=== PATIENT | female | born 1970 | race Caucasian/White ===

== ENCOUNTER 2018-08-13 18:02 | Inpatient (IN) | payer OTHER ==
[2018-08-13] MEDS ORDERED: THIAMINE 200 MG/2 ML INJ ONE (18:56)
[2018-08-13] MEDS ORDERED: NA CHLORIDE 0.9% 2,000 ML ONE (18:56)
[2018-08-13] MEDS ORDERED: MULTIVITAMINS 10 ML VIAL (INJ) IV ONE (18:57)
[2018-08-13] MEDS ORDERED: FOLIC ACID 5 MG/ML VIAL ONE (18:58)
--- NOTE | 2018-08-13 19:22 | RAD REPORT ---
EXAM DESCRIPTION: RAD - Chest Single View - 08/13/2018 7:09 pm CLINICAL HISTORY: Abdominal pain COMPARISON: December 2016 TECHNIQUE: AP portable chest image was obtained 1905 hours . FINDINGS: Lungs are clear. Heart and vasculature are normal. No measurable pleural effusion and no p neumothorax. No acute bony abnormality seen. No acute aortic findings suspected. IMPRESSION: No acute cardiopulmonary process. No significant change from comparison.
[2018-08-13 19:42] LABS: Absolute Lymphocytes (CBC) 1.2 K/uL (0.7-4.9); Absolute Monocytes 0.3 K/uL (0.1-1.3); Absolute Neutrophil 4.9 K/uL (1.8-8.0); Basophils % 0.6 % (0-1.3); Eosinophils % 0.1 % (0-4.4); Hematocrit 29.8 % (36.0-45.0); Lymphocytes % 19.1 % (15.3-44.8); MCH 37.3 pg (27.0-35.0); MCV 109.9 fL (80-100); MPV 8.2 fL (7.6-11.3); RBC Red Blood Cell Count 2.71 M/uL (3.86-4.86)
[2018-08-13 19:48] LABS: Protime INR 1.15
[2018-08-13] MEDS ORDERED: DICYCLOMINE HCL 10 MG CAP ONE (19:55)
[2018-08-13 20:39] LABS: ALT/SGPT 42 U/L (12-78); AST/SGOT 133 U/L (15-37); Albumin 3.5 g/dL (3.4-5.0); Alkaline Phosphatase 243 U/L (45-117); BUN Blood Urea Nitrogen 6 mg/dL (7-18); Bicarbonate 19 mmol/L (21-32); Bilirubin Direct 0.5 mg/dL (0-0.2); Bilirubin Total 0.8 mg/dL (0.2-1.0); Glucose Level 68 mg/dL (74-106); Lipase 307 U/L (73-393); Magnesium 1.5 mg/dL (1.8-2.4); Potassium 3.6 mmol/L (3.5-5.1); Protein, Total 7.6 g/dL (6.4-8.2); Sodium Level 141 mmol/L (136-145); Troponin I < 0.02 ng/mL (0.0-0.045)
[2018-08-13 20:45] LABS: Platelet Estimate DECR; Urine White Blood Cell Casts OK
[2018-08-13 20:46] LABS: Blood Morphology Comment NOTED (NOT SEEN); Macrocytosis 1+
[2018-08-13] MEDS ORDERED: Magnesium Sulfate 2gm IVPB 2 G/50 ML BAG IV ONE (21:05)
[2018-08-13] MEDS ORDERED: D50W 25 GM/50 ML SYRINGE IV ONE ×2 (21:05→23:35)
[2018-08-13 21:31] LABS: Barbiturates NEGATIVE (NEGATIVE); Benzodiazepines POSITIVE (NEGATIVE); Cocaine NEGATIVE (NEGATIVE); METHAMPHETAM NEGATIVE (NEGATIVE); Methadone NEGATIVE (NEGATIVE); Opiates NEGATIVE (NEGATIVE); Phencyclidine NEGATIVE (NEGATIVE); THC Cannibis NEGATIVE (NEGATIVE)
[2018-08-13 22:25] LABS: Urine Blood NEGATIVE (NEG); Urine Glucose NEGATIVE (NEG); Urine Protein NEGATIVE (NEG); Urine Specific Gravity 1.015 (1.005-1.030); Urine pH 6.5 (5.0-7.0)
--- NOTE | 2018-08-13 23:08 | ER ---
Nurse's Notes [facility] Name: Yudy Luke Age: 48 yrs Sex: Female : 1970 Arrival Date: 08/13/2018 Time: 18:03 Bed 23 Private MD: Isidoro Nino H Diagnosis: Alcohol abuse with intoxication;Dehydration;Hypoglycemia, unspecified;Diarrhea, unspecified;Hypomagnesemia Presentation: 08/13 18:14 Presenting complaint: Patient states: "I'm really sick. I think have C-Diff. I've aj1 crapped myself 13 times today. I went to [facility] last night. I called Dr. Nino and he said to come here and he would take of me. This has been going on for 2 months" Reports that she was unable to start any of her prescriptions because she slept all day. Reports epigastric pain, N/V/D. Reports fever of 100.1 today. Transition of care: patient was not received from another setting of care. Onset of symptoms was May 2018. Risk Assessment: Do you want to hurt yourself or someone else? Patient reports no desire to harm self or others. Initial Sepsis Screen: Does the patient meet any 2 criteria? HR > 90 bpm. No. Patient's initial sepsis screen is negative. Does the patient have a suspected source of infection? Yes: Acute abdominal pain. Care prior to arrival: None. 18:14 Method Of Arrival: Wheelchair aj1 18:14 Acuity: FABY 3 aj1 Triage Assessment: 18:18 General: Appears uncomfortable, Behavior is anxious, crying, restless. Pain: Complains aj1 of pain in epigastric area Pain currently is 10 out of 10 on a pain scale. Neuro: Level of Consciousness is awake, alert, obeys commands. Cardiovascular: Patient's skin is warm and dry. Respiratory: Airway is patent Respiratory effort is even, unlabored, Respiratory pattern is regular, symmetrical. GI: Reports diarrhea, nausea, vomiting. 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 - Social history:: Smoking status: Patient uses tobacco products, 1-2 cigarettes per day, Patient uses alcohol, on a daily basis. - Ebola Screening: : Patient denies travel to an Ebola-affected area in the 21 days before illness onset. Screenin:30 Abuse screen: Denies threats or abuse. Denies injuries from another. Nutritional kr2 screening: No deficits noted. Tuberculosis screening: No symptoms or risk factors identified. Fall Risk Gait- Impaired (20 pts.). Mental Status- Overestimates/Forgets Limitations (15 pts.). Assessment: 18:30 General: Appears in no apparent distress. uncomfortable, Behavior is crying, restless, kr2 Smells of alcohol, Reports feeling ill for > 3 days. Pain: Complains of pain in epigastric area Pain radiates to abdomen Pain currently is 10 out of 10 on a pain scale. Quality of pain is described as crampy, sharp, shooting, Is continuous, Alleviated by nothing. Aggravated by increased activity, Noted to be crying, moaning, restless. Neuro: Level of Consciousness is awake, alert, Oriented to person, place, time, situation. Cardiovascular: Capillary refill is > 3 seconds in bilateral fingers Patient's skin is warm and dry. Respiratory: Airway is patent Respiratory effort is even, unlabored, Respiratory pattern is regular, symmetrical. GI: Abdomen is flat, non-distended, Bowel sounds present X 4 quads. Abdomen is tender to palpation X 4 quads. EENT: Oral mucosa is dry. Derm: Skin is intact, with poor turgor Skin is pink, warm \\T\\ dry. Musculoskeletal: Circulation, motion, and sensation intact. 19:30 Reassessment: Patient appears in no apparent distress at this time. Patient and/or kr2 family updated on plan of care and expected duration. Pain level reassessed. Patient resting quietly at this time. 20:15 Reassessment: Patient sleeping, when awakened for procedures or medication patient kr2 begins crying, screaming and hyperventilating. Patient reminded to slow breathing and with encouragement calms down. Cries on and off, at bedside and assist in calming patient. 20:20 Reassessment: Patient states she needs help changing, "I pooped on myself, I can't kr2 control it." Checked patients undergarments, no urine or feces present. 20:46 Reassessment: Asked patient to attempt to provide urine sample, she refuses at this kr2 time. She insist she must be admitted to the hospital, Explained to patient all of her test must be completed and results obtained before physician can make that determination. 21:45 Reassessment: Patient appears in no apparent distress at this time. Patient and/or kr2 family updated on plan of care and expected duration. Pain level reassessed. No episodes of diarrhea or vomiting since arrival. 22:35 Reassessment: Patient appears in no apparent distress at this time. Patient and/or kr2 family updated on plan of care and expected duration. Pain level reassessed. Patient sleeping at this time. 23:57 Reassessment: Patient appears in no apparent distress at this time. Patient and/or kr2 family updated on plan of care and expected duration. Pain level reassessed. Patient is alert, oriented x 3, equal unlabored respirations, skin warm/dry/pink. Patient given new undergarments as requested. Small smear of stool noted, not enough for sample Patient states symptoms have improved. 08/14 00:45 Reassessment: Patient appears in no apparent distress at this time. Patient and/or kr2 family updated on plan of care and expected duration. Pain level reassessed. Patient is alert, oriented x 3, equal unlabored respirations, skin warm/dry/pink. Vital Signs: 08/13 18:18 BP 107 / 74; Pulse 86; Resp 18; Temp 97.0(O); Pulse Ox 97% on R/A; Weight 69.85 kg (R); aj1 Height 5 ft. 3 in. (160.02 cm) (R); Pain 10/10; 20:23 BP 103 / 69; Pulse 83; Resp 15; Pulse Ox 99% on R/A; kr2 20:50 BP 105 / 65; Pulse 71; Resp 16; Pulse Ox 100% ; kr2 22:15 BP 100 / 74; Pulse 82; Resp 18; Pulse Ox 100% on R/A; kr2 23:59 BP 107 / 55; Pulse 86; Resp 17; Pulse Ox 99% on R/A; kr2 18:18 Body Mass Index 27.28 (69.85 kg, 160.02 cm) aj1 ED Course: 18:03 Patient arrived in ED. as 18:04 Isidoro Nino MD is Private Physician. as 18:17 Triage completed. aj1 18:22 J Carlos Naranjo PA is PHCP. cp 18:22 J Carlos Dorado MD is Attending Physician. cp 18:30 Arm band placed on. kr2 18:30 Patient has correct armband on for positive identification. Placed in gown. Bed in low kr2 position. Call light in reach. Side rails up X2. Adult w/ patient. quality assurance monitor body on. Pulse ox on. NIBP on. Door closed. Lights dimmed. Warm blanket given. Head of bed elevated. 19:00 Served as a environmental consultant during rectal exam. kr2 19:09 XRAY Chest (1 view) In Process Unspecified. EDMS 19:15 Inserted saline lock: 20 gauge in left antecubital area, using aseptic technique. kr2 ,using aseptic technique. Inserted by KARIS Rinaldi Blood collected. 19:37 Jaclyn Delgado, KARIS is Primary Nurse. kr2 21:00 Notified Nurse Practitioner and/or Physician Quality Systems Engineer of a critical lab result(s), fc corrected level of ETOH is 345. 21:28 US Abdomen Limited: RUQ/epigastric area In Process Unspecified. EDMS 23:05 Yuriy Anderson MD is Hospitalizing Provider. cp 08/14 00:47 Patient admitted, IV remains in place. kr2 Administered Medications: 08/13 19:35 Drug: Banana Bag - (NS 0.9% 1000 ml, foLIC Acid 1 mg, Thiamine 100 mg, Multivitamin 1 kr2 amp) Route: IV; Rate: 200 ml/hr; Site: left antecubital; 08/14 00:40 Follow up: Response: No adverse reaction; IV Status: Infusion continued upon admission kr2 08/13 19:37 Drug: NS 0.9% 1000 ml Route: IV; Rate: 1 bolus; Site: left antecubital; kr2 21:00 Follow up: Response: No adverse reaction; IV Status: Completed infusion kr2 19:52 Drug: Bentyl 20 mg Route: PO; kr2 21:51 Follow up: Response: No adverse reaction kr2 21:06 Drug: D50W 50 ml Route: IVP; Site: left antecubital; kr2 22:14 Follow up: Response: No adverse reaction; Blood sugar is elevated kr2 21:45 Drug: Magnesium Sulfate 2 grams Route: IVPB; Infused Over: 2 hrs; Site: left kr2 antecubital; 23:45 Follow up: Response: No adverse reaction; IV Status: Completed infusion kr2 23:30 Drug: D5-1/2 NS 1000 ml Route: IV; Rate: 125 ml/hr; Site: left antecubital; kr2 08/14 00:48 Follow up: IV Status: Infusion continued upon admission kr2 08/13 23:30 Drug: D50W 50 ml Route: IVP; Site: left antecubital; kr2 08/14 00:48 Follow up: Response: No adverse reaction kr2 Point of Care Testing: Blood Glucose: 08/13 22:00 Blood Glucose: 98 mg/dL; kr2 Ranges: Outcome: 23:07 Decision to Hospitalize by Provider. 08/14 00:47 Admitted to Tele accompanied by nurse, via wheelchair, room 411, with chart, Report kr2 called to Johanny Condition: stable Instructed on the need for admit, Demonstrated understanding of instructions. 00:50 Patient left the ED. kr2 Signatures: Dispatcher [employer] Elizabeth Luz RN RN aj Desi Spencer RN RN fc Martinez, Amelia as Page, Corey, PA PA cp Reaves, Karey, RN RN kr2 Corrections: (The following items were deleted from the chart) 08/13 20:25 18:30 Fall Risk Mental Status- Overestimates/Forgets Limitations (15 pts.). kr2 kr2 23:51 23:30 D50W 50 ml IVP in left antecubital aj1 aj1 23:51 23:31 D5-1/2 NS 1000 ml IV at 125 ml/hr in left antecubital aj1 aj1 23:52 23:45 BP 107 / 75; Pulse 88bpm; Resp 17bpm; Pulse Ox 100%; aj1 aj1 23:52 23:43 Reassessment: Patient appears in no apparent distress at this time. Patient aj1 and/or family updated on plan of care and expected duration. Pain level reassessed. Patient given clean undergarments as requested, small smear of stool noted on brief, not enough to collect sample aj1
--- NOTE | 2018-08-13 23:09 | EDPHYS ---
Physician Documentation [facility] Name: Yudy Luke Age: 48 yrs Sex: Female : 1970 Arrival Date: 08/13/2018 Time: 18:03 Bed 23 Private MD: Isidoro Nino H ED Physician J Carlos Dorado HPI: 08/13 19:00 This 48 yrs old Female presents to ER via Wheelchair with complaints of cp Abdominal Pain - C-Diff, Vomiting. 19:00 The patient presents with abdominal pain that is diffuse. cp 19:00 Onset: The symptoms/episode began/occurred 2 month(s) ago. cp 19:00 Associated signs and symptoms: Pertinent positives: blood in stools, diarrhea, nausea, cp vomiting, Pertinent negatives: constipation, dysuria, fever. The symptoms are described as waxing/waning. 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 - Social history:: Smoking status: Patient uses tobacco products, 1-2 cigarettes per day, Patient uses alcohol, on a daily basis. - Ebola Screening: : Patient denies travel to an Ebola-affected area in the 21 days before illness onset. ROS: 19:04 Constitutional: Negative for body aches, chills, fever, poor PO intake. cp 19:04 Eyes: Negative for injury, pain, redness, and discharge. cp 19:04 ENT: Negative for drainage from ear(s), ear pain, sore throat, difficulty swallowing, difficulty handling secretions. 19:04 Cardiovascular: Negative for chest pain, edema, palpitations. 19:04 Respiratory: Negative for cough, shortness of breath, wheezing. 19:04 Abdomen/GI: Positive for abdominal pain, nausea and vomiting, diarrhea, black/tarry stool, rectal bleeding, Negative for constipation, anorexia. 19:04 : Negative for urinary symptoms. 19:04 Skin: Negative for cellulitis, rash. 19:04 Neuro: Negative for altered mental status, seizure activity, syncope, near syncope. 19:04 Psych: Positive for alcohol dependence. 19:04 All other systems are negative. Exam: 19:07 Head/Face: Normocephalic, atraumatic. cp 19:07 Constitutional: The patient appears in no acute distress, alert, awake, non-toxic, well developed, well nourished, smells of alcohol, tearful 19:07 Eyes: Periorbital structures: appear normal, Pupils: equal, round, and reactive to light and accomodation, Extraocular movements: intact throughout, Conjunctiva: normal, no exudate, no injection, Sclera: no appreciated abnormality, Lids and lashes: appear normal, bilaterally. 19:07 ENT: External ear(s): are unremarkable, Ear canal(s): are normal, clear, TM's: bulging, is not appreciated, bilaterally, dullness, bilaterally, erythema, is not appreciated, bilaterally, Nose: is normal, Mouth: Lips: dry, Oral mucosa: dry, Posterior pharynx: is normal, airway is patent, no erythema, no exudate. 19:07 Neck: ROM/movement: is normal, is supple, without pain, no range of motions limitations, no meningismus, no nuchal rigidity. 19:07 Chest/axilla: Inspection: normal, Palpation: is normal, no crepitus, no tenderness. 19:07 Cardiovascular: Rate: normal, Rhythm: regular, Edema: is not appreciated, JVD: is not appreciated. 19:07 Respiratory: the patient does not display signs of respiratory distress, Respirations: normal, no use of accessory muscles, no retractions, no splinting, no tachypnea, labored breathing, is not present, Breath sounds: are clear throughout, no decreased breath sounds, no stridor, no wheezing. 19:07 Abdomen/GI: Inspection: abdomen appears normal, Bowel sounds: active, all quadrants, Palpation: soft, in all quadrants, mild abdominal tenderness, in all quadrants, rebound tenderness, is not appreciated, involuntary guarding, is not appreciated. 19:07 Back: pain, is absent, ROM is normal, CVA tenderness, is absent. 19:07 : Rectal exam: Stool: brown, Guaiac testing: results were negative for occult blood. 19:07 Skin: cellulitis, is not appreciated, no rash present. 19:40 ECG was reviewed by the Attending Physician. cp Vital Signs: 18:18 BP 107 / 74; Pulse 86; Resp 18; Temp 97.0(O); Pulse Ox 97% on R/A; Weight 69.85 kg (R); aj1 Height 5 ft. 3 in. (160.02 cm) (R); Pain 10/10; 20:23 BP 103 / 69; Pulse 83; Resp 15; Pulse Ox 99% on R/A; kr2 20:50 BP 105 / 65; Pulse 71; Resp 16; Pulse Ox 100% ; kr2 22:15 BP 100 / 74; Pulse 82; Resp 18; Pulse Ox 100% on R/A; kr2 23:59 BP 107 / 55; Pulse 86; Resp 17; Pulse Ox 99% on R/A; kr2 18:18 Body Mass Index 27.28 (69.85 kg, 160.02 cm) aj1 MDM: 18:22 Patient medically screened. cp 23:00 Data reviewed: vital signs, nurses notes, old medical records, lab test result(s), EKG, cp radiologic studies, ultrasound. 23:00 Test interpretation: by ED physician or midlevel provider: ECG, plain radiologic cp studies. 08/13 18:43 Order name: Basic Metabolic Panel; Complete Time: 22:07 cp 08/13 20:46 Interpretation: Normal except: CO2 19; GLUC 68; BUN 6; GFR 76; CA 7.9. cp 08/13 18:43 Order name: CBC with Diff; Complete Time: 20:47 cp 08/13 19:58 Interpretation: Normal except: RBC 2.71; HGB 10.1; HCT 29.8; MCV 109.9; MCH 37.3; PLT cp 121; EVAN% 76.2. 08/13 18:43 Order name: Creatinine for Radiology; Complete Time: 20:15 cp 08/13 18:43 Order name: Hepatic Function; Complete Time: 22:07 cp 08/13 20:46 Interpretation: Normal except: AST 133; ALK 243; BILID 0.5; GLOB 4.1; A/G 0.9. cp 08/13 18:43 Order name: Lipase; Complete Time: 22:07 cp 08/13 18:43 Order name: Occult Blood cp 08/13 18:43 Order name: Stool Culture cp 08/13 18:43 Order name: CDIFF cp 08/13 18:43 Order name: AMMONIA; Complete Time: 20:15 cp 08/13 20:16 Interpretation: Abnormal: TESFAYE 58. cp 08/13 18:43 Order name: PT-INR; Complete Time: 19:58 cp 08/13 19:59 Interpretation: Abnormal: PT 13.6. cp 08/13 18:43 Order name: Ptt, Activated; Complete Time: 19:58 cp 08/13 18:43 Order name: Magnesium; Complete Time: 22:07 cp 08/13 20:46 Interpretation: Abnormal: MG 1.5. cp 08/13 18:43 Order name: Tylenol Level; Complete Time: 22:07 cp 08/13 18:43 Order name: ETOH Level; Complete Time: 22:07 cp 08/13 18:43 Order name: UDS; Complete Time: 22:07 cp 08/13 18:43 Order name: Type And Screen; Complete Time: 21:01 cp 08/13 21:01 Interpretation: Reviewed. cp 08/13 18:43 Order name: EKG; Complete Time: 18:44 cp 08/13 18:43 Order name: Troponin I; Complete Time: 22:07 cp 08/13 18:43 Order name: XRAY Chest (1 view); Complete Time: 19:58 cp 08/13 20:46 Order name: CBC Smear Scan; Complete Time: 20:47 EDMS 08/13 20:48 Order name: US Abdomen Limited: RUQ/epigastric area cp 08/13 21:21 Order name: Urine Dipstick--Ancillary (enter results); Complete Time: 22:55 mw2 08/13 21:21 Order name: Urine --Ancillary (enter results); Complete Time: 22:55 mw2 08/13 18:43 Order name: IV Saline Lock; Complete Time: 19:38 cp 08/13 18:43 Order name: Labs collected and sent; Complete Time: 19:38 cp 08/13 18:43 Order name: Urine Dipstick-Ancillary (obtain specimen); Complete Time: 22:18 cp 08/13 18:43 Order name: Urine Test (obtain specimen); Complete Time: 22:18 cp 08/13 18:43 Order name: EKG - Nurse/Tech; Complete Time: 19:38 cp EC:40 Rate is 84 beats/min. Rhythm is regular. DC interval is normal at 126 msec. QRS cp interval is normal. QT interval is normal. Interpreted by me. Reviewed by me. Administered Medications: 19:35 Drug: Banana Bag - (NS 0.9% 1000 ml, foLIC Acid 1 mg, Thiamine 100 mg, Multivitamin 1 kr2 amp) Route: IV; Rate: 200 ml/hr; Site: left antecubital; 08/14 00:40 Follow up: Response: No adverse reaction; IV Status: Infusion continued upon admission kr2 08/13 19:37 Drug: NS 0.9% 1000 ml Route: IV; Rate: 1 bolus; Site: left antecubital; kr2 21:00 Follow up: Response: No adverse reaction; IV Status: Completed infusion kr2 19:52 Drug: Bentyl 20 mg Route: PO; kr2 21:51 Follow up: Response: No adverse reaction kr2 21:06 Drug: D50W 50 ml Route: IVP; Site: left antecubital; kr2 22:14 Follow up: Response: No adverse reaction; Blood sugar is elevated kr2 21:45 Drug: Magnesium Sulfate 2 grams Route: IVPB; Infused Over: 2 hrs; Site: left kr2 antecubital; 23:45 Follow up: Response: No adverse reaction; IV Status: Completed infusion kr2 23:30 Drug: D5-1/2 NS 1000 ml Route: IV; Rate: 125 ml/hr; Site: left antecubital; kr2 08/14 00:48 Follow up: IV Status: Infusion continued upon admission kr2 08/13 23:30 Drug: D50W 50 ml Route: IVP; Site: left antecubital; kr2 08/14 00:48 Follow up: Response: No adverse reaction kr2 Point of Care Testing: Blood Glucose: 08/13 22:00 Blood Glucose: 98 mg/dL; kr2 Ranges: Critical Glucose Levels:Adult <50 mg/dl or >400 mg/dl <40 mg/dl or >180 mg/dl Disposition: 08/14 05:56 Co-signature as Attending Physician, J Carlos Dorado MD I agree with the assessment and [facility] plan of care. Disposition: 08/13/18 23:07 Hospitalization ordered by Yuriy Anderson for Observation. Preliminary diagnosis are Alcohol abuse with intoxication, Dehydration, Hypoglycemia, unspecified, Diarrhea, unspecified, Hypomagnesemia. - Bed requested for Telemetry/MedSurg (observation). - Status is Observation. kr2 - Condition is Stable. - Problem is an ongoing problem. - Symptoms have improved. UTI on Admission? No Signatures: Dispatcher [employer] EDMS Elizabeth Gramajo RN RN aj1 J Carlos Dorado MD MD cha Page, Corey, PA PA cp Reaves, Karey, RN RN kr2 Prosper Van mw2 Corrections: (The following items were deleted from the chart) 08/13 20:46 20:45 Normal except: CO2 19; GLUC 68; BUN 6; GFR 76. cp cp 23:09 23:07 Hospitalization Ordered by Yuriy Anderson MD for Observation. Preliminary cp diagnosis is Alcohol abuse with intoxication; Dehydration; Hypoglycemia, unspecified. Bed requested for Telemetry/MedSurg (observation). Status is Observation. Condition is Stable. Problem is an ongoing problem. Symptoms have improved. UTI on Admission? No. cp 23:54 23:09 08/13/2018 23:07 Hospitalization Ordered by Yuriy Anderson MD for Observation. mw2 Preliminary diagnosis is Alcohol abuse with intoxication; Dehydration; Hypoglycemia, unspecified; Diarrhea, unspecified; Hypomagnesemia. Bed requested for Telemetry/MedSurg (observation). Status is Observation. Condition is Stable. Problem is an ongoing problem. Symptoms have improved. UTI on Admission? No. cp 08/14 00:50 08/13 23:54 08/13/2018 23:07 Hospitalization Ordered by Yuriy Anderson MD for kr2 Observation. Preliminary diagnosis is Alcohol abuse with intoxication; Dehydration; Hypoglycemia, unspecified; Diarrhea, unspecified; Hypomagnesemia. Bed requested for Telemetry/MedSurg (observation). Status is Observation. Condition is Stable. Problem is an ongoing problem. Symptoms have improved. UTI on Admission? No. mw2
[2018-08-13] MEDS ORDERED: D5 0.45 NS 1,000 ML IV ONE (23:35)
[2018-08-14] MEDS: NA CHLORIDE 0.9% 1,000 ML IV SCH ×3 (00:25→20:51)
[2018-08-14] MEDS ORDERED: ACETAMINOPHEN 500 MG TAB PO PRN (00:25)
[2018-08-14] MEDS ORDERED: ONDANSETRON 4 MG/2 ML VIAL ONE (00:37)
[2018-08-14] MEDS: LACTULOSE 20 GM/30 ML UCUP PO SCH ×3 (01:00→17:00)
[2018-08-14] MEDS ORDERED: SODIUM CHLORIDE 0.9% 10ML INJ IV PRN (01:16)
[2018-08-14] MEDS ORDERED: PANTOPRAZOLE 40 MG INJ IVP ONE (01:16)
[2018-08-14] MEDS ORDERED: LORazepam 2 MG/ML VIAL IV PRN (01:17)
[2018-08-14] MEDS: ONDANSETRON 4 MG/2 ML VIAL IV PRN ×4 (01:54→22:12)
[2018-08-14] MEDS: LORazepam 2 MG/ML VIAL IV SCH ×6 (01:55→22:04)
[2018-08-14 02:11] VITALS: BMI 30.4
--- NOTE | 2018-08-14 02:15 | P.HP ---
Certification for Inpatient Patient admitted to: Observation With expected LOS: <2 Midnights Practitioner: I am a practitioner with admitting privileges, knowledge of patient current condition, hospital course, and medical plan of care. Services: Services provided to patient in accordance with Admission requirements found in Title 42 Section 412.3 of the Code of Federal Regulations Patient History Date of Service: 08/13/18 Reason for admission: Alcohol intoxication, chronic diarrhea History of Present Illness: Ms Luke is a 48-year-old woman with history of hypothyroidism, alcohol abuse , hypertension, who came to ED complaining of diarrhea. 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 She also states that has had fever 101.0 F, however in ER was 97.0. The patient came also intoxicated with alcohol, she said the only drink 1 shot at night, alcohol level 324. Lab work remarkable for hemoglobin of 10.1, abnormal transaminase Alkaline phosphate, ammonia level 58. Allergies clonazepam Allergy (Severe, Verified 01/13/17 01:55) Anaphylaxis codeine Allergy (Verified 07/04/17 14:26) Nausea/Vomiting Home medications list reviewed: Yes Home Medications: Biotin 10,000 mcg PO DAILY 07/04/17 ALPRAZolam [Xanax*] 0.25 mg PO BID PRN #60 07/11/17 Cholestyramine/Asp [Questran Light*] 4 gm PO BIDWM #60 packet 07/11/17 Hydrocodone Bit/Acetaminophen [[place] 10-325 Tablet] 1 each PO Q6H PRN #20 tablet 07/11/17 Lactobacillus Acidophilus [Acidophilus Lactobacilli] 1 each PO DAILY #30 Levothyroxine Sodium [Synthroid] 175 mcg PO DAILY #30 tablet 07/11/17 Loperamide [Imodium*] 2 mg PO Q4H PRN #60 cap 07/11/17 Montelukast [Singulair*] 10 mg PO DAILY #30 tab 07/11/17 Nebivolol HCl [Bystolic*] 20 mg PO DAILY #30 07/11/17 Ondansetron HCl [Zofran] 4 mg PO Q12HP PRN #20 tablet 07/11/17 Pantoprazole [Protonix Tab*] 40 mg PO BID #60 tab 07/11/17 Promethazine Tab [Phenergan -Tab] 25 mg PO Q6HP PRN #30 tab 07/11/17 Rifaximin [Xifaxan] 550 mg PO BID #60 07/11/17 Sucralfate [Carafate] 10 ml PO ACHS #90 tab 07/11/17 Tramadol HCl [Ultram] 50 mg PO Q6H PRN #60 07/11/17 Valsartan [Diovan*] 160 mg PO DAILY #30 tab 07/11/17 hydroCHLOROthiazide [Hydrochlorothiazide*] 12.5 mg PO DAILY #30 cap 07/11/17 levoFLOXacin [Levaquin*] 500 mg PO DAILY #14 tab 07/11/17 metroNIDAZOLE [Flagyl*] 500 mg PO Q8HR #52 07/11/17 - Past Medical/Surgical History Diabetic: No -: HYPOTHYROIDSISM -: depression -: add -: allergies -: gerd -: GASTRITIS -: ESOPHAGITIS -: TONSILLECTOMY -: BREAST AUGMENTATION - Family History Father -: Heart disease, Other (see notes) Notes: PE Mother -: Heart disease, Cancer Notes: SMALL CELL JOSEPH LUNG CANCER - Social History Smoking Status: Current every day smoker Counseled patient to stop smoking for: less than 10 minutes Alcohol use: No CD- Drugs: No Caffeine use: No Place of Residence: Home Review of Systems 10-point ROS is otherwise unremarkable Physical Examination - Vital Signs Temperature: 97.0 F Blood Pressure: 107/55 Pulse: 86 Respirations: 17 - Physical Exam General: Alert, Mild distress (Due to alcohol intoxication) HEENT: Atraumatic, PERRLA, Mucous membr. moist/pink, EOMI, Sclerae nonicteric Neck: Supple, 2+ carotid pulse no bruit, No LAD, Without JVD or thyroid abnormality Respiratory: Clear to auscultation bilaterally, Normal air movement Cardiovascular: Regular rate/rhythm, Normal S1 S2 Gastrointestinal: Normal bowel sounds, Tenderness (Diffuse abdominal pain to palpation) Musculoskeletal: No tenderness Integumentary: No rashes Neurological: Normal speech, Normal strength at 5/5 x4 extr, Normal tone, Normal affect Lymphatics: No axilla or inguinal lymphadenopathy - Studies Laboratory Data (last 24 hrs) 08/13/18 19:20: PT 13.6 H, INR 1.15, APTT 33.9 08/13/18 19:20: Creatinine 0.80 08/13/18 19:20: WBC 6.4, Hgb 10.1 L, Hct 29.8 L, Plt Count 121 L 08/13/18 19:20: Sodium 141, Potassium 3.6, BUN 6 L, Creatinine 0.80, Glucose 68 L, Magnesium 1.5 L, Total Bilirubin 0.8, AST 133 H, ALT 42, Alkaline Phosphatase 243 H, Troponin I < 0.02, Lipase 307 Assessment and Plan - Problems (Diagnosis) (1) Abdominal pain Onset Date: 01/13/17 Current Visit: No Status: Acute Qualifiers: Abdominal location: generalized Qualified Code(s): R10.84 - Generalized abdominal pain (2) Alcohol abuse Onset Date: 01/13/17 Current Visit: No Status: Acute (3) Cirrhosis Onset Date: 07/07/17 Current Visit: No Status: Acute Qualifiers: Hepatic cirrhosis type: alcoholic cirrhosis Ascites presence: unspecified Qualified Code(s): K70.30 - Alcoholic cirrhosis of liver without ascites (4) Diarrhea Onset Date: 07/07/17 Current Visit: No Status: Acute Qualifiers: Diarrhea type: unspecified type Qualified Code(s): R19.7 - Diarrhea, unspecified (5) Nausea & vomiting Onset Date: 07/07/17 Current Visit: No Status: Acute Qualifiers: Vomiting type: unspecified Vomiting Intractability: non-intractable Qualified Code(s): R11.2 - Nausea with vomiting, unspecified (6) Hypothyroidism Onset Date: 07/07/17 Current Visit: No Status: Chronic Qualifiers: Hypothyroidism type: acquired Qualified Code(s): E03.9 - Hypothyroidism, unspecified - Plan The patient will be admitted to the hospital due to diarrhea, alcohol intoxication. Will check for C diff, start alcohol withdrawal protocol. Consult Dr. gonzalez due to of normal liver function test. - Advance Directives Does patient have a Living Will: No Does patient have a Durable POA for Healthcare: Yes - Code Status/Comfort Care Code Status Assessed: Yes Code Status: Full Code
[2018-08-14 07:15] LABS: Absolute Lymphocytes (CBC) 1.8 K/uL (0.7-4.9); Absolute Monocytes 0.3 K/uL (0.1-1.3); Absolute Neutrophil 3.5 K/uL (1.8-8.0); Basophils % 0.6 % (0-1.3); Eosinophils % 0.4 % (0-4.4); Hematocrit 26.8 % (36.0-45.0); Lymphocytes % 32.2 % (15.3-44.8); MCH 37.1 pg (27.0-35.0); MCV 109.1 fL (80-100); MPV 8.6 fL (7.6-11.3); Monocytes % 5.3 % (3.3-12.3); RBC Red Blood Cell Count 2.46 M/uL (3.86-4.86)
[2018-08-14 07:16] LABS: BUN Blood Urea Nitrogen 4 mg/dL (7-18); Bicarbonate 21 mmol/L (21-32); Glucose Level 70 mg/dL (74-106); Potassium 3.2 mmol/L (3.5-5.1); Sodium Level 141 mmol/L (136-145)
--- NOTE | 2018-08-14 07:19 | RAD REPORT ---
EXAM DESCRIPTION: US - Abdomen Exam Limited - 08/13/2018 9:27 pm CLINICAL HISTORY: Abdominal pain, right upper quadrant pain A preliminary report was provided at the time of the study and reviewed prior to final report. COMPARISON: None. FINDINGS: Several small sub centimeter gallstones are identified. Subtle wall thickening changes are present without an overall wall thickness or definitive evidence for gallbladder wall mass. No peric holecystic fluid seen. No biliary tree dilatation. No common duct stone identifiable. IMPRESSION: Several small mobile gallstones are identified. Subtle wall thickening changes are seen without an overall wall thickening or pericholecystic fluid klaus cooper
--- NOTE | 2018-08-14 07:28 | EKG ---
Test Date: 2018-08-13 Test Time: 19:32:31 Sole Leveler: ROSHAN MEASUREMENT RESULTS: Intervals: Rate: 84 NE: 126 QRSD: 94 QT: 424 QTc: 501 [place]: P: NE: 126 QRS: 129 T: 123 INTERPRETIVE STATEMENTS: Normal sinus rhythm Left posterior fascicular block Nonspecific T wave abnormality Abnormal ECG Compared to ECG 10/21/2013 20:23:53 Left posterior fascicular block now present T-wave abnormality now present Electronically Signed On 08-14-18 07:27:36 CDT by Cristopher Gomez
[2018-08-14] MEDS: FOLIC ACID 1 MG, MULTIVITAMINS INJ 10 ML, THIAMINE HCL 100 MG in NA CHLORIDE 0.9% 1,000 ML IV SCH (11:01)
--- NOTE | 2018-08-14 13:43 | RAD REPORT ---
EXAM DESCRIPTION: CT - Chest Abdomen Pelvis W Cont - 08/14/2018 1:09 pm CLINICAL HISTORY: Chest pain, abdominal pain, nausea and vomiting COMPARISON: Gallbladder ultrasound August 13, CT abdomen and pelvis June 2017 TECHNIQUE: Following dynamic enhancement using 100 milliliters nonionic IV contrast, axial imaging o f the chest, abdomen and pelvis was performed. Biphasic technique was utilized through the abdomen. Oral contrast was administered. All CT scans are performed using dose optimization technique as appropriate and may include automated exposure control or mA/KV adjustment according to patient size. FINDINGS: Lungs are clear of suspicious mass and infiltrate. Small calcified granulomas seen in the posterior lower right lung field. No pleural effusion, pleural thickening or pneumothorax. No signifi cant aortic or pulmonary arterial tree finding. Mediastinal and hilar regions show no mass or abnorma l lymphadenopathy. No chest wall mass or axillary lymphadenopathy. Bilateral breast implants are in p lace. Implant capsules are partially calcified. Liver is enlarged and shows a diffuse fatty infiltration pattern. There is a nodular contour to the l iver parenchyma as well. No focal liver lesions seen. No splenomegaly or focal splenic finding. No ac ginette pancreatic process seen. Several small gallstones are present. No gallbladder dilatation. No bili [place] tree dilatation. Symmetric renal function is seen with no mass or hydronephrosis. No adrenal abnormalities. No pyelone phritis or acute renal parenchymal process. No urinary bladder abnormality. Uterus and ovaries show n o suspicious findings. No gastric dilatation. Gastric curtis are accentuated by the absence of contrast, fluid or fluid withi n the lumen. A true gastric wall mass is not suspected. No small bowel dilatation seen. A few of the small bowel loops are prominent. Oral contrast has reached the rectum. Fatty ileocecal valve is prese nt. Patient has a mobile cecum is well is colonic interposition. The cecum and ileocecal valve are po sition between the lateral abdominal wall in the right lobe of the liver. There is circumferential wa ll thickening and edema of the colon from cecum to splenic flexure. Moderate sigmoid diverticulosis i s present. Colon wall thickening in the sigmoid is minimal. No free air or pneumatosis. Trace amount of free fluid in the peritoneal cavity. . No extravasation o f the oral contrast. No abscess. No bulky lymphadenopathy or omental thickening. There is a mild sj ested or edematous appearance to the mesenteric fat. No acute or destructive bony process. No significant vascular findings. IMPRESSION: Nonspecific colitis pattern showing circumferential wall thickening and edema from tip o f the cecum through the splenic flexure. Patient has prominent sigmoid diverticulosis without a sigmo id diverticulitis pattern. No free air, abscess or other surgically emergent finding. Cholelithiasis. No biliary tree dilatation. No CT findings specific for cholecystitis. Patient has a mobile cecum configuration and colonic interposition with the cecum and ileocecal valve position between the right lobe of the liver and the right lateral abdominal wall. Fatty infiltration of the enlarged liver. There is nodular contour to the capsule. Correlation is nee ded with any cirrhosis or diffuse hepatic parenchymal disease process. No focal liver lesion.
[2018-08-14] MEDS: CIPROFLOXACIN 400mg IV 400 MG/200 ML BAG IV SCH ×2 (14:18→20:51)
[2018-08-14] MEDS: METRONIDAZOLE 500mg IVPB 500 MG/100 ML BAG IV SCH (17:11)
[2018-08-14] MEDS: TRAMADOL HCL 50 MG TAB PO PRN (17:11)
--- NOTE | 2018-08-14 20:55 | P.PN ---
Subjective Date of Service: 08/14/18 Chief Complaint: Alcohol intoxication, chronic diarrhea Patient seen and examined at bedside. No family at bedside. Case discussed with nursing staff and Dr. Nino. Patient reports slightly improved abdominal pain, though states that she is still having episodes of non bloody diarrhea. Review of Systems As noted above Physical Examination - Vital Signs Temperature: 98.9 F Blood Pressure: 100/72 Pulse: 98 Respirations: 18 Pulse Ox (%): 93 - Physical Exam General: Alert, Oriented x3, Mild distress, Obese HEENT: Atraumatic, PERRLA, EOMI Neck: Supple, JVD not distended Respiratory: Clear to auscultation bilaterally, Normal air movement Cardiovascular: Regular rate/rhythm, Normal S1 S2 Gastrointestinal: Normal bowel sounds, Tenderness (diffuse, worse on right side. Pain with deep palpation) Musculoskeletal: No tenderness Integumentary: No rashes Neurological: Normal speech, Normal tone, Normal affect - Studies Laboratory Data (last 24 hrs) 08/13/18 19:20: WBC 6.4, Hgb 10.1 L, Hct 29.8 L, Plt Count 121 L Medications List Reviewed: Yes Assessment And Plan - Plan Assessment and Plan (1) Abdominal pain Pt admitted for abdominal pain CT scan with: Keep NPO, pain management with tramadol IVFs GI consulted, Recommendations appreciated. (2) Alcohol abuse Patient states that her last drink was 1 day ago, and she had one 8 oz vodka/ water. Her initial blood alcohol level was 345. Counseled on alcohol cessation CIWA protocol w/ alcohol withdrawal assessments; ativan ordered (3) Cirrhosis likely secondary to alcohol use; GI consulted (4) Diarrhea infectious vs collitis? Empiric IV antibiotics Pending C.diff and O/P testing (5) Nausea & vomiting continue zofran for nausea/vomiting (6) Hypothyroidism Continue home medications
[2018-08-14] MEDS ORDERED: POTASSIUM CL 40 MEQ in NA CHLORIDE 0.9% 500 ML IV SCH (21:00)
[2018-08-14] MEDS: KCL 20 MEQ/100 mL IVPB 20 MEQ/100 ML BAG IV SCH ×2 (22:03→23:48)
[2018-08-15] MEDS: LACTULOSE 20 GM/30 ML UCUP PO SCH ×4 (01:00→16:46)
[2018-08-15] MEDS: METRONIDAZOLE 500mg IVPB 500 MG/100 ML BAG IV SCH ×4 (01:10→17:35)
[2018-08-15] MEDS: LORazepam 2 MG/ML VIAL IV SCH ×5 (02:00→19:33)
[2018-08-15] MEDS: ONDANSETRON 4 MG/2 ML VIAL IV PRN ×4 (02:03→19:34)
[2018-08-15] MEDS: LEVOTHYROXINE SOD 0.075 MG TAB PO SCH (06:05)
[2018-08-15] MEDS: PANTOPRAZOLE 40MG TABLET PO SCH (06:05)
[2018-08-15] MEDS: LEVOTHYROXINE SOD 0.1 MG TAB PO SCH (06:05)
[2018-08-15] MEDS: NA CHLORIDE 0.9% 1,000 ML IV SCH ×3 (06:17→20:36)
[2018-08-15] MEDS: TRAMADOL HCL 50 MG TAB PO PRN (07:19)
[2018-08-15] MEDS: NEBIVOLOL HCL 20 MG TABLET PO SCH ×2 (08:18→08:36)
[2018-08-15] MEDS: MONTELUKAST 10 MG TAB PO SCH (08:20)
[2018-08-15] MEDS: hydroCHLOROthiazide 12.5 MG CAP PO SCH ×2 (08:20→08:35)
[2018-08-15] MEDS: CIPROFLOXACIN 400mg IV 400 MG/200 ML BAG IV SCH ×2 (08:21→20:32)
[2018-08-15] MEDS ORDERED: HOME MED 1 EA UNK (Lansoprazole [Prevacid] 30 MG) PO SCH (09:00)
[2018-08-15] MEDS ORDERED: HOME MED 1 EA UNK (Levothyroxine Sodium [Synthroid] 175 MCG) PO SCH (09:00)
[2018-08-15] MEDS: FOLIC ACID 1 MG, MULTIVITAMINS INJ 10 ML, THIAMINE HCL 100 MG in NA CHLORIDE 0.9% 1,000 ML IV SCH (09:56)
[2018-08-15] MEDS ORDERED: HYDROMORPHONE HCL 2 MG/ML inj IV ONE (10:07)
[2018-08-15] MEDS: CHOLESTYRAMINE/ASP 4 GM/PKT PO SCH ×2 (10:41→16:45)
[2018-08-15] MEDS: DESVENLAFAXINE SUCCINATE 50 MG ER TAB PO SCH (10:41)
[2018-08-15 11:02] LABS: Potassium 3.4 mmol/L (3.5-5.1)
[2018-08-15 11:16] LABS: Phosphorus 0.8 mg/dL (2.5-4.9)
[2018-08-15] MEDS ORDERED: POTASSIUM PHOS 30 MM in NA CHLORIDE 0.9% 500 ML IV ONE (13:00)
[2018-08-15] MEDS ORDERED: ENOXAPARIN 40 MG/0.4 ML SQ SCH (17:00)
[2018-08-15 18:58] LABS: Folic Acid, (Folate) > 20.0 ng/mL (3.1-17.5)
--- NOTE | 2018-08-15 20:06 | PN ---
History: Currently, patient lying in bed. She looks comfortable. She has no chest pain, but she co ntinued to have nausea and vomiting. She is not able to tolerate liquid diet. Continues to have abd ominal pain. She talked to Dr. Nino, who started her on Dilaudid. She continues to ask for Ativan . She is on banana bag. Review of Systems: Otherwise negative. Physical Examination: Vital Signs: Blood pressure 110/60, respiratory rate 18, pulse 80, temperature 97.6. General: She is alert, but somewhat sleepy. Oriented x3. Does not look in any distress. HEENT: Atraumatic, normocephalic. PERRLA. Oral mucosa is moist. Neck: Supple. No JVD. No carotid bruits. Chest: Clear to auscultation. Good air entry. Heart: Regular rate and rhythm. S1 and S2 normal. No gallop or murmur. Abdomen: Nontender to palpation. There is no guarding or rebound, mostly on the right side. Extremities: No clubbing, cyanosis, or edema. No calf tenderness. Neurologic: Grossly intact. Laboratory Data: Labs today showed CBC within normal except for hemoglobin of 9.1, MCV of 109, plate let of 93. Chemistry with potassium of 3.4, this morning, phosphorus 0.8. Assessment And Plan: 1.Abdominal pain secondary to colitis most likely. Continue clear liquid diet. At this point, mikey ent is not tolerating diet well and IV antibiotic with Cipro and Flagyl. 2.Liver cirrhosis secondary to alcohol abuse or use. Dr. Nino is consulted. The patient on banan a bag. She had a large MCV. I will check a folic, B12, and thyroid function as well. 3.History of alcohol abuse. The patient is trying to cut down her drink to 2-4 a day from 6. Her r ecent alcohol level was 345. She is currently on Ativan withdrawal protocol. 4.Diarrhea. Most likely secondary colitis. Clostridium difficile was ruled out. She is already on Flagyl and Cipro. 5.Nausea, vomiting. She is on p.r.n. Zofran and Ativan continue. 6.Hypothyroidism. She is on Synthroid. 7.Thrombocytopenia, most likely secondary to alcoholism and liver disease. 8.Deep vein thrombosis prophylaxis. We will start with Lovenox 40. 9.Hypokalemia and hypophosphatemia. We will replace with protocol. JENNA/MODNeri Voice ID: [id number] Report ID: [id number]
--- NOTE | 2018-08-15 20:18 | P.PN ---
Subjective Date of Service: 08/15/18 Chief Complaint: Alcohol intoxication, chronic diarrhea Subjective: Worsening (Increased diarrhea today, but C diff negative. Continued nausea, unable to tolerate clear liquids. States she has been unable to tolerate po for 2-4 weeks. Diarrhea began ~ 6 weeks ago.) Review of Systems 10-point ROS is otherwise unremarkable Gastrointestinal: Nausea, Vomiting, Abdominal Pain, Diarrhea Neurological: Other (UEs shakes) Physical Examination - Vital Signs Temperature: 97.6 F Blood Pressure: 120/60 Pulse: 80 Respirations: 18 Pulse Ox (%): 98 - Physical Exam General: Alert, In no apparent distress, Oriented x3, Cooperative, Disheveled, Mild distress HEENT: Atraumatic, Normocephalic, PERRLA, EOMI Neck: Supple Cardiovascular: Normal pulses Gastrointestinal: No rebound, Tenderness (mild), Guarding (mild) Musculoskeletal: No clubbing, No swelling Neurological: Normal speech, Normal strength at 5/5 x4 extr, Other (UEs with shakes (DTs) ) - Studies Medications List Reviewed: Yes Assessment And Plan - Current Problems (Diagnosis) (1) Chronic diarrhea Current Visit: Yes Status: Acute (2) Alcohol abuse Onset Date: 01/13/17 Current Visit: No Status: Acute (3) Anemia Current Visit: No Status: Acute Qualifiers: Anemia type: unspecified type Qualified Code(s): D64.9 - Anemia, unspecified (4) Cirrhosis Onset Date: 07/07/17 Current Visit: No Status: Acute Qualifiers: Hepatic cirrhosis type: alcoholic cirrhosis Ascites presence: unspecified Qualified Code(s): K70.30 - Alcoholic cirrhosis of liver without ascites (5) Dehydration Onset Date: 01/13/17 Current Visit: No Status: Acute (6) Generalized abdominal pain Onset Date: 07/07/17 Current Visit: No Status: Acute (7) Nausea & vomiting Onset Date: 07/07/17 Current Visit: No Status: Acute Qualifiers: Vomiting type: unspecified Vomiting Intractability: non-intractable Qualified Code(s): R11.2 - Nausea with vomiting, unspecified - Plan REC: 1) await remaining stool studies (C diff negative) 2) flex-sig & EGD in AM 3) increase prn pain medications / anti-emetics 4) replete lytes 5) will need increased BDZs until DTs over in 5-6 days 6) continue Thiamine and folate 7) add Questran 8) continue gentle IVFs and IV antibiotics 9) check other diarrhea labs
[2018-08-15] MEDS: PROMETHAZINE 25 MG/ML VIAL IV PRN (20:25)
[2018-08-15] MEDS: HYDROMORPHONE HCL 2 MG/ML inj IV PRN (20:28)
[2018-08-15 20:29] LABS: Phosphorus 3.1 mg/dL (2.5-4.9); Potassium 3.7 mmol/L (3.5-5.1)
[2018-08-15] MEDS: LORazepam 2 MG/ML VIAL IV PRN (21:48)
[2018-08-15] MEDS ORDERED: KCL 20 MEQ/100 mL IVPB 20 MEQ/100 ML BAG IV SCH (22:00)
[2018-08-16] MEDS: LACTULOSE 20 GM/30 ML UCUP PO SCH ×3 (00:36→16:38)
[2018-08-16] MEDS: METRONIDAZOLE 500mg IVPB 500 MG/100 ML BAG IV SCH ×4 (00:36→18:53)
[2018-08-16] MEDS: LORazepam 2 MG/ML VIAL IV PRN ×5 (00:36→20:51)
[2018-08-16] MEDS ORDERED: LORazepam 2 MG/ML VIAL IV SCH (02:03)
[2018-08-16] MEDS: NA CHLORIDE 0.9% 1,000 ML IV SCH ×3 (02:25→22:25)
[2018-08-16] MEDS: ONDANSETRON 4 MG/2 ML VIAL IV SCH ×4 (02:34→20:43)
[2018-08-16] MEDS: PROMETHAZINE 25 MG/ML VIAL IV PRN ×2 (05:05→17:30)
[2018-08-16] MEDS: HYDROMORPHONE HCL 2 MG/ML inj IV PRN ×2 (06:27→22:00)
[2018-08-16] MEDS: PANTOPRAZOLE 40MG TABLET PO SCH (06:30)
[2018-08-16] MEDS: LEVOTHYROXINE SOD 0.075 MG TAB PO SCH (06:30)
[2018-08-16] MEDS: LEVOTHYROXINE SOD 0.1 MG TAB PO SCH (06:30)
[2018-08-16 07:55] LABS: Absolute Lymphocytes (CBC) 0.9 K/uL (0.7-4.9); Absolute Monocytes 0.3 K/uL (0.1-1.3); Absolute Neutrophil 1.9 K/uL (1.8-8.0); Basophils % 0.8 % (0-1.3); Eosinophils % 2.6 % (0-4.4); Hematocrit 26.2 % (36.0-45.0); Lymphocytes % 29.4 % (15.3-44.8); MCH 37.5 pg (27.0-35.0); MCV 109.9 fL (80-100); MPV 8.3 fL (7.6-11.3); Monocytes % 8.5 % (3.3-12.3); RBC Red Blood Cell Count 2.39 M/uL (3.86-4.86)
[2018-08-16] MEDS ORDERED: Ringers Lactate 1,000 ML IV ONE (08:00)
[2018-08-16] MEDS ORDERED: SIMETHICONE 40 MG/ 0.6 ML ONE (08:02)
[2018-08-16] MEDS ORDERED: LIDOCAINE 1% MPF 5 ML VIAL ONE (08:06)
[2018-08-16] MEDS ORDERED: PROPOFOL 200 MG/20 ML VIAL IV ONE ×2 (08:06→08:45)
[2018-08-16 08:13] LABS: Albumin 2.9 g/dL (3.4-5.0); Bilirubin Total 1.2 mg/dL (0.2-1.0); Potassium 3.8 mmol/L (3.5-5.1); Protein, Total 6.2 g/dL (6.4-8.2)
[2018-08-16 08:16] LABS: Anisocytosis 1+; Blood Morphology Comment NOTED (NOT SEEN); Macrocytosis 1+; Platelet Estimate DECR; Urine White Blood Cell Casts OK
--- NOTE | 2018-08-16 08:43 | ENDO RPT ---
[address], [address] EGD PROCEDURE REPORT EXAM DATE: 08/16/2018 PATIENT NAME: Yudy Luke MR#: [id number] BIRTHDATE: 1970 ATTENDING: Isidoro Nino Dr STATUS: outpatient TECHNICAL SUPERVISOR: Anastacia Paredes and Maricruz Ojeda RN INDICATIONS: The patient is a 48 yr old Female here for an EGD due to nausea and vomiting, mid epigastric abdominal pain, general abdominal pain, ETOH cirrhosis, and chronic unexplained diarrhea PROCEDURE PERFORMED: EGD with biopsy MEDICATIONS: Per Anesthesia. TOPICAL ANESTHETIC: none CONSENT: The patient understands the risks and benefits of the procedure and understands that these risks include, but are not limited to: sedation, allergic reaction, infection, perforation and/or bleeding. Alternative means of evaluation and treatment include, among others: physical exam, x-rays, and/or surgical intervention. The patient elects to proceed with this endoscopic procedure. DESCRIPTION OF PROCEDURE: During intra-op preparation period all mechanical medical equipment was checked for proper function. Hand hygiene and appropriate measures for infection prevention was taken. Procedure, possible complications, and alternatives including but not limited to the possibility of bleeding, perforation, tear, infection, sepsis, need for surgery, need for blood transfusion, and anesthesia related complications were explained to the patient. After the risks, benefits and alternatives of the procedure were thoroughly explained, Informed consent was verified, confirmed and timeout was successfully executed by the treatment team. The patient was placed in the left lateral position. The patient was anesthetized with topical anesthesia. Through the anesthetized oropharyngeal area, the scope was passed without any difficulty. The [id number] ([id number]) endoscope was introduced through the mouth and advanced to the second portion of the duodenum. Retroflexed views revealed no abnormalities. The gastroscope was then slowly withdrawn and removed. Grade I varices were found in the lower esophagus. Gastropathy was found in the body of the stomach. Mild gastritis was found in the antrum. Multiple biopsies were obtained and sent to pathology. ADVERSE EVENTS: There were no complications. IMPRESSIONS: 1. 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 Mild portal hypertensive gastropathy in the body of the stomach 3. Mild gastritis in the antrum, s/p biopsies 4. Small bowel biopsies obtained with history of chronic unexplained diarrhea RECOMMENDATIONS: 1. await biopsy results 2. acid suppression therapy REPEAT EXAM: Return in 6 month(s) for EGD. Isidoro Nino Dr eSigned: Isidoro Nino Dr 08/16/2018 8:42 AM cc: CPT CODES: ICD9 CODES: PATIENT NAME: Yudy Luke MR#: [id number]
[2018-08-16] MEDS ORDERED: CALCIUM GLUC 10% INJ 9.3 MEQ in NA CHLORIDE 0.9% 100 ML IV ONE (09:00)
--- NOTE | 2018-08-16 09:11 | ENDO RPT ---
[address], [address] COLONOSCOPY PROCEDURE REPORT EXAM DATE: 08/16/2018 PATIENT NAME: Yudy Luke MR #: [id number] BIRTHDATE: 1970 ATTENDING: Isidoro Nino Dr STATUS: outpatient WOOD FENCE INSTALLER: Anastacia Paredes and Maricruz Ojeda RN INDICATIONS: The patient is a 48 yr old Female here for a colonoscopy due to unexplained chronic diarrhea and abdominal pain PROCEDURE PERFORMED: Colonoscopy with biopsy MEDICATIONS: Per Anesthesia. ESTIMATED BLOOD LOSS: None CONSENT: The patient understands the risks and benefits of the procedure and understands that these risks include, but are not limited to: sedation, allergic reaction, infection, perforation and/or bleeding. Alternative means of evaluation and treatment include, among others: physical exam, x-rays, and/or surgical intervention. The patient elects to proceed with this endoscopic procedure. DESCRIPTION OF PROCEDURE: During intra-op preparation period all mechanical medical equipment was checked for proper function. Hand hygiene and appropriate measures for infection prevention was taken. Procedure, possible complications, alternatives including, but not limited to possibility of bleeding, perforation, tear, infection, sepsis, need for surgery, need for blood transfusion, were explained to the patient. After the risks, benefits and alternatives of the procedure were thoroughly explained, Informed consent was verified, confirmed and timeout was successfully executed by the treatment team. The patient was placed in the left lateral position. A digital rectal exam was performed and revealed no abnormalities of the rectum. After appropriate level of anesthesia, the scope was passed. The [id number] ([id number]) and [id number] ([id number]) endoscope was introduced through the anus and advanced to the cecum, which was identified by both the appendix and ileocecal valve. The quality of the prep was fair. The instrument was then slowly withdrawn as the colon was fully examined. Scope withdrawal time was 8 minutes. COLON FINDINGS: Mild diverticulosis was noted in the left colon. Random biopsies of the right colon / left colon / rectum obtained with history of chronic unexplained diarrhea. 7 mm pedunculated polyp in the sigmoid colon (not removed). Large internal hemorrhoids were found. Retroflexed views revealed large hemorrhoids. The scope was then completely withdrawn from the patient and the procedure terminated. ADVERSE EVENTS: There were no complications. IMPRESSIONS: 1. Mild diverticulosis in the left colon (sigmoid to transverse) 2. Random biopsies of the right colon / left colon / rectum obtained with history of chronic unexplained diarrhea 3. 7 mm pedunculated polyp in the sigmoid colon (not removed) 4. Large internal hemorrhoids 5. Intubation to cecum RECOMMENDATIONS: await biopsy results RECALL: Return in 1 month(s) for Colonoscopy. Isidoro Nino Dr eSigned: Isidoro Nino Dr 08/16/2018 9:11 AM cc: CPT CODES: ICD9 CODES: PATIENT NAME: Yudy Luke MR#: [id number]
[2018-08-16] MEDS: DESVENLAFAXINE SUCCINATE 50 MG ER TAB PO SCH (10:18)
[2018-08-16] MEDS: CIPROFLOXACIN 400mg IV 400 MG/200 ML BAG IV SCH ×2 (10:18→20:41)
[2018-08-16] MEDS: NEBIVOLOL HCL 20 MG TABLET PO SCH (10:19)
[2018-08-16] MEDS: hydroCHLOROthiazide 12.5 MG CAP PO SCH (10:20)
[2018-08-16] MEDS: MONTELUKAST 10 MG TAB PO SCH (10:21)
[2018-08-16] MEDS: FOLIC ACID 1 MG, MULTIVITAMINS INJ 10 ML, THIAMINE HCL 100 MG in NA CHLORIDE 0.9% 1,000 ML IV SCH (10:21)
[2018-08-16] MEDS: chlordiazePOXIDE HCl 25 MG CAP PO SCH ×2 (17:00→20:43)
[2018-08-16] MEDS: DIPHENOX/ATROP SULF 1 TAB PO SCH ×2 (17:30→20:43)
--- NOTE | 2018-08-16 18:49 | PN ---
Subjective: Currently, she is lying in bed. She looks sleepy. She continued to have nausea and vom iting. She could not tolerate more than clear liquids. She had her EGD and colonoscopy done in the ER. She is curious about the results. She continued to describe diffuse abdominal pain. Review of Systems: Otherwise negative. Objective: Vital Signs: Today, blood pressure is 120/85, respiratory rate 18, pulse 84, temperature is 97.4. General: The patient is alert, oriented x3. Does not look in any distress. She is sleepy. HEENT: Atraumatic, normocephalic. Oral mucosa is dry. Neck: Supple. No JVD. Chest: Clear to auscultation. Good air entry. Heart: Regular rate and rhythm. S1, S2 normal. No gallop or murmur. Abdomen: Obese. Diffuse tenderness to palpation. There is no guarding or rebound. Positive bowel sounds. Extremities: No clubbing, cyanosis, or edema. No calf tenderness. Neurologic: Grossly intact. Cranial Nerves: 2 through 12 intact. Normal sensation. Normal reflex es. Normal muscles. Laboratory Data: Today labs. White blood cells at 3.2, hemoglobin 8.9, platelets 52. Chemistry wit hin normal except for calcium of 6.6. Total bilirubin 1.2. AST of 101, epinephrine x2, or 3. ALT o f 35. Endoscopy this morning showed mild diverticulosis of the right colon. Biopsy was done. A 7 m m polyp removed from the colon wall was not removed from the sigmoid colon. Large internal hemorrhoi ds noted. The patient will need to repeat colonoscopy in 1 month. EGD shows grade 1 varices in the lower esophagus, portal hypertension, gastropathy in the body of the stomach, mild gastritis. Small bowel biopsies obtained to evaluate for diarrhea. I advised The patient repeat EGD in 6 months. Assessment And Plan: 1.Chief abdomen bed secondary to colitis with history of chronic diarrhea next EGD and colonoscopy. Noted results as above. Biopsy is still pending. The patient had a polyp in her sigmoid colon and she needs a resection to be reschedule in [address] Nino. In the meantime, we will continue IV antibiotics. Cipro Flagyl for possible colitis showed on CT which apparently could not be apprec iated on colonoscopy with biopsy still pending. 2.Recurrent diarrhea workup in progress. Small-bowel biopsy and colon biopsies pending status post EGD and colonoscopy. 3.Liver cirrhosis secondary to alcohol abuse. The patient had varices and gastropathy on EGD she wi ll be on Protonix. 4.Macrocytosis this most likely is an alcoholism the patient vitamin B12 folic acid within normal. PSA check TSH elevated I will increase her Synthroid. Two 200 mcg a day. From 175 currently. 5.Thrombocytopenia worse. Most likely secondary to her liver cirrhosis. Dyspnea is pending. 6.Nausea, vomiting on p.r.n. Zofran and p.r.n. 7.History of alcohol abuse. She is on Ativan withdrawal protocol. 8.Deep vein thrombosis prophylaxis. We will hold Lovenox the patient thrombocytopenia worse. 9.Hypokalemia replaced yesterday. Today she severe hypocalcemia will replace with 2 g of calcium gl uconate. Her albumin is low too a 2.9. 10.Hypophosphatemia replaced yesterday. 11.Discharge plan: The patient's symptoms improved and she is able to keep her diet without any michael sea or vomiting. JENNA/SARY Voice ID: [id number] Report ID: [id number]
[2018-08-17] MEDS: METRONIDAZOLE 500mg IVPB 500 MG/100 ML BAG IV SCH ×5 (00:35→23:14)
[2018-08-17] MEDS: LACTULOSE 20 GM/30 ML UCUP PO SCH ×2 (00:36→09:00)
[2018-08-17] MEDS ORDERED: LORazepam 2 MG/ML VIAL IV SCH (02:05)
[2018-08-17] MEDS: ONDANSETRON 4 MG/2 ML VIAL IV SCH ×5 (03:24→20:00)
[2018-08-17] MEDS: LORazepam 2 MG/ML VIAL IV PRN (05:09)
[2018-08-17] MEDS: LEVOTHYROXINE SOD 0.1 MG TAB PO SCH (05:44)
[2018-08-17] MEDS: PANTOPRAZOLE 40MG TABLET PO SCH (05:44)
[2018-08-17 05:58] LABS: Phosphorus 2.3 mg/dL (2.5-4.9); Potassium 3.3 mmol/L (3.5-5.1)
[2018-08-17] MEDS ORDERED: POTASSIUM CL SA 10 MEQ TAB PO ONE ×2 (06:18→08:02)
[2018-08-17] MEDS ORDERED: KCL 20 MEQ/100 mL IVPB 20 MEQ/100 ML BAG IV SCH (06:30)
[2018-08-17] MEDS: NA CHLORIDE 0.9% 1,000 ML IV SCH ×3 (08:25→23:14)
[2018-08-17] MEDS: chlordiazePOXIDE HCl 25 MG CAP PO SCH ×4 (09:00→20:24)
[2018-08-17] MEDS: NEBIVOLOL HCL 20 MG TABLET PO SCH (09:00)
[2018-08-17] MEDS: hydroCHLOROthiazide 12.5 MG CAP PO SCH (09:00)
[2018-08-17] MEDS ORDERED: POTASSIUM PHOS IN 0.9 % NACL 15 MMOL/250 ML BAG IV ONE (09:00)
[2018-08-17] MEDS: CIPROFLOXACIN 400mg IV 400 MG/200 ML BAG IV SCH ×2 (09:39→20:20)
[2018-08-17] MEDS: FOLIC ACID 1 MG, MULTIVITAMINS INJ 10 ML, THIAMINE HCL 100 MG in NA CHLORIDE 0.9% 1,000 ML IV SCH (09:39)
[2018-08-17] MEDS: DIPHENOX/ATROP SULF 1 TAB PO SCH ×4 (09:40→20:24)
[2018-08-17] MEDS: Rifaximin 550 MG Tab PO SCH ×2 (09:40→20:24)
[2018-08-17] MEDS: MONTELUKAST 10 MG TAB PO SCH (09:42)
[2018-08-17] MEDS: PROMETHAZINE 25 MG/ML VIAL IV PRN ×2 (09:43→23:13)
[2018-08-17] MEDS: DESVENLAFAXINE SUCCINATE 50 MG ER TAB PO SCH (09:43)
--- NOTE | 2018-08-17 12:18 | P.PN ---
Subjective Date of Service: 08/17/18 Chief Complaint: Alcohol intoxication, chronic diarrhea Subjective: Improving (Less diarrhea with start of Lomotil qid. Less shakes with start of Librium in addition to prn Ativan. Limited CL diet, better, but with N/V after jello today. Ambulated in hallways last night. Still with abdominal pain and low BP.) Review of Systems 10-point ROS is otherwise unremarkable General: Weakness, Malaise Gastrointestinal: Nausea, Vomiting, Abdominal Pain, Diarrhea (Improved) Neurological: Weakness, Confusion (Improved.) Physical Examination - Vital Signs Temperature: 97.1 F Blood Pressure: 92/60 Pulse: 73 Respirations: 18 Pulse Ox (%): 94 - Physical Exam General: Alert, In no apparent distress, Oriented x3, Cooperative, Disheveled HEENT: Atraumatic, Normocephalic, PERRLA, EOMI Neck: Supple Respiratory: Normal air movement Cardiovascular: Regular rate/rhythm Gastrointestinal: No rebound, Tenderness (general mild to mod), Guarding Neurological: Normal speech, Normal strength at 5/5 x4 extr - Studies Medications List Reviewed: Yes Assessment And Plan - Current Problems (Diagnosis) (1) Chronic diarrhea Current Visit: Yes Status: Acute Comment: Improved with start of Lomotil 1 tab qid. (2) Alcohol abuse Onset Date: 01/13/17 Current Visit: No Status: Acute Comment: Wants to go to rehab facility upon discharge. Will get SW consult. (3) Anemia Current Visit: No Status: Acute Comment: also with decrease of plts 125 to 90 to 50. Possible heparin antibody induced. Qualifiers: Anemia type: unspecified type Qualified Code(s): D64.9 - Anemia, unspecified (4) Cirrhosis Onset Date: 07/07/17 Current Visit: No Status: Acute Qualifiers: Hepatic cirrhosis type: alcoholic cirrhosis Ascites presence: unspecified Qualified Code(s): K70.30 - Alcoholic cirrhosis of liver without ascites (5) Dehydration Onset Date: 01/13/17 Current Visit: No Status: Acute Comment: Resolved. IVFs stopped with cirrhosis and mild ascites on admission imaging (CT and U/S). She has gained 5 lbs since admission. Will recheck U/S abdomen and consider diurectic therapy. (6) Generalized abdominal pain Onset Date: 07/07/17 Current Visit: No Status: Acute Comment: Improved (7) Nausea & vomiting Onset Date: 07/07/17 Current Visit: No Status: Acute Comment: Did not tolerate jello with subsequent N/V. But did tolerate ice chips, water, sherbert. Qualifiers: Vomiting type: unspecified Vomiting Intractability: non-intractable Qualified Code(s): R11.2 - Nausea with vomiting, unspecified - Plan REC: 1) await remaining stool studies (C diff negative) 2) await colonoscopy & EGD pathology 3) continue prn pain medications / anti-emetics 4) replete lytes 5) continue BDZs until DTs over in 4-5 days 6) continue Thiamine and folate 7) add Questran qhs 8) continue gentle IVFs and IV antibiotics 9) await other diarrhea labs 10) check gastric emptying study and then start IV Reglan 10 mg qac/qhs 11) check heparin antibodies 12) d/c lactulose and start Xifaxan
[2018-08-17] MEDS: TRAMADOL HCL 50 MG TAB PO PRN (16:11)
[2018-08-17] MEDS: METOCLOPRAMIDE 10 MG/2mL INJ IV SCH ×2 (16:30→20:25)
--- NOTE | 2018-08-17 18:33 | P.PN ---
Subjective Date of Service: 08/17/18 Chief Complaint: Alcohol intoxication, chronic diarrhea Patient seen and examined at bedside. No family at bedside. Case discussed with nursing staff and Dr. Nino. Patient reports slightly improved abdominal pain, though states that she is still having episodes of non bloody diarrhea. She is only able barely tolerate clear liquids Review of Systems As noted above Physical Examination - Vital Signs Temperature: 97.9 F Blood Pressure: 102/54 Pulse: 70 Respirations: 18 Pulse Ox (%): 96 - Physical Exam General: Alert, Oriented x3, Moderate distress (Due to pain) HEENT: Atraumatic, PERRLA, EOMI Neck: Supple, JVD not distended Respiratory: Clear to auscultation bilaterally, Normal air movement Cardiovascular: Regular rate/rhythm, Normal S1 S2 Gastrointestinal: Normal bowel sounds, Tenderness, Guarding Musculoskeletal: No tenderness Integumentary: No rashes Neurological: Normal speech, Normal tone, Normal affect - Studies Microbiology Data (last 24 hrs): 08/14/18 19:42 Stool Culture & Sensitivity - Final Medications List Reviewed: Yes Assessment And Plan - Plan Assessment and Plan (1) Abdominal pain Pt admitted for abdominal pain CT scan with: Possible colitis CLD, pain management with tramadol IVFs GI consulted, Recommendations appreciated. Pending EGD and colonoscopy/ biopsy results. The patient had a polyp in her sigmoid colon and she needs a resection to be reschedule in [address] Nino This could be secondary to gastroparesis. She has pending gastric emptying studies tomorrow (2) Alcohol abuse Counseled on alcohol cessation [facility] protocol w/ alcohol withdrawal assessments; ativan p.r.n. Continue thiamine and folate (3) Cirrhosis likely secondary to alcohol use; GI consulted Had varices and gastroplasty on EGD. Continue Protonix (4) Diarrhea infectious vs collitis? Empiric IV antibiotics Pending O/P testing C. diff negative Continue Lomotil and xifaxan (5) Nausea & vomiting continue zofran for nausea/vomiting (6) Hypothyroidism Continue home medications (7) thrombocytopenia Most likely secondary to her liver cirrhosis
[2018-08-17] MEDS ORDERED: FENTANYL CITR 100 MCG/2 ML IM ONE (19:22)
[2018-08-17] MEDS: CHOLESTYRAMINE/ASP 4 GM/PKT PO SCH (20:24)
[2018-08-17] MEDS ORDERED: DIPHENOX/ATROP SULF 1 TAB PO ONE (20:25)
[2018-08-17 20:33] LABS: Potassium 3.7 mmol/L (3.5-5.1)
[2018-08-17 20:34] LABS: Phosphorus 3.8 mg/dL (2.5-4.9)
[2018-08-17] MEDS: HYDROMORPHONE HCL 2 MG/ML inj IV PRN (23:13)
[2018-08-18] MEDS: ONDANSETRON 4 MG/2 ML VIAL IV SCH ×4 (02:00→20:38)
[2018-08-18] MEDS: METRONIDAZOLE 500mg IVPB 500 MG/100 ML BAG IV SCH ×3 (05:52→17:33)
[2018-08-18] MEDS: PANTOPRAZOLE 40MG TABLET PO SCH (05:53)
[2018-08-18] MEDS: LEVOTHYROXINE SOD 0.1 MG TAB PO SCH (05:53)
[2018-08-18] MEDS: PROMETHAZINE 25 MG/ML VIAL IV PRN (06:22)
[2018-08-18 06:50] LABS: Phosphorus 3.8 mg/dL (2.5-4.9); Potassium 3.4 mmol/L (3.5-5.1)
[2018-08-18 06:55] LABS: Magnesium 1.1 mg/dL (1.8-2.4)
[2018-08-18] MEDS ORDERED: Magnesium Sulfate 2gm IVPB 2 G/50 ML BAG IV ONE ×2 (08:30→09:30)
[2018-08-18] MEDS: CIPROFLOXACIN 400mg IV 400 MG/200 ML BAG IV SCH ×2 (09:58→20:31)
[2018-08-18] MEDS: hydroCHLOROthiazide 12.5 MG CAP PO SCH (10:03)
[2018-08-18] MEDS: HYDROMORPHONE HCL 2 MG/ML inj IV PRN (10:03)
[2018-08-18] MEDS: METOCLOPRAMIDE 10 MG/2mL INJ IV SCH ×4 (10:04→20:37)
[2018-08-18] MEDS: DIPHENOX/ATROP SULF 1 TAB PO SCH ×3 (10:05→17:32)
[2018-08-18] MEDS: NEBIVOLOL HCL 20 MG TABLET PO SCH (10:05)
[2018-08-18] MEDS: chlordiazePOXIDE HCl 25 MG CAP PO SCH ×3 (10:05→20:37)
[2018-08-18] MEDS: MONTELUKAST 10 MG TAB PO SCH (10:05)
[2018-08-18] MEDS: Rifaximin 550 MG Tab PO SCH ×2 (10:06→20:36)
[2018-08-18] MEDS: DESVENLAFAXINE SUCCINATE 50 MG ER TAB PO SCH (10:06)
--- NOTE | 2018-08-18 10:12 | RAD REPORT ---
EXAM DESCRIPTION: NM - Gastric Emptying Study - 08/18/2018 10:02 am TECHNIQUE: 1 millicurie Technetium Sulfur Colloid was administered in an egg meal. Anterior and post erior whole body images of the stomach were obtained for 120 minutes. Throughout the 120 minutes of the examination there is little radiotracer which exits the stomach. The retention of radiotracer within the stomach at 2 hours is 97.5%. IMPRESSION: Extreme delay of gastric emptying
[2018-08-18] MEDS: FOLIC ACID 1 MG, MULTIVITAMINS INJ 10 ML, THIAMINE HCL 100 MG in NA CHLORIDE 0.9% 1,000 ML IV SCH (10:49)
[2018-08-18] MEDS ORDERED: DIPHENHYDRAMINE 25 MG TAB/CAP PO ONE (13:46)
[2018-08-18] MEDS ORDERED: POTASSIUM 25 MEQ EFFERV TAB PO ONE (13:46)
[2018-08-18] MEDS: NA CHLORIDE 0.9% 1,000 ML IV SCH (14:25)
--- NOTE | 2018-08-18 17:09 | P.PN ---
Subjective Date of Service: 08/18/18 Chief Complaint: Alcohol intoxication, chronic diarrhea Patient seen and examined at bedside. No family at bedside. Case discussed with nursing staff and Dr. Nino. Patient reports slightly improved abdominal pain, sitting up in bed and eating ice/sorbet. Reports 2 loose stools since this morning, nonbloody. No acute events overnight noted. Review of Systems As noted above Physical Examination - Vital Signs Temperature: 98.2 F Blood Pressure: 133/92 Pulse: 78 Respirations: 20 Pulse Ox (%): 94 - Physical Exam General: Alert, In no apparent distress HEENT: Atraumatic, PERRLA, EOMI Neck: Supple, JVD not distended Respiratory: Clear to auscultation bilaterally, Normal air movement Cardiovascular: Regular rate/rhythm, Normal S1 S2 Gastrointestinal: Normal bowel sounds, Tenderness (Diffuse) Musculoskeletal: No tenderness Integumentary: No rashes Neurological: Normal speech, Normal tone, Normal affect Lymphatics: No axilla or inguinal lymphadenopathy - Studies Microbiology Data (last 24 hrs): 08/14/18 19:42 Stool Culture & Sensitivity - Final Medications List Reviewed: Yes Assessment And Plan - Plan Assessment and Plan (1) Abdominal pain Pt admitted for abdominal pain CT scan with: Possible colitis CLD, pain management with tramadol IVFs GI consulted, Recommendations appreciated. Pending EGD and colonoscopy/ biopsy results. The patient had a polyp in her sigmoid colon and she needs a resection to be reschedule in [address] Nino Pending gastric emptying studies results (2) Alcohol abuse Counseled on alcohol cessation [facility] protocol w/ alcohol withdrawal assessments; Librium p.r.n. Continue thiamine and folate (3) Cirrhosis likely secondary to alcohol use; GI consulted Had varices and gastroplasty on EGD. Continue Protonix (4) Diarrhea infectious vs collitis? Empiric IV antibiotics Pending O/P testing C. diff negative Continue Lomotil and xifaxan (5) Nausea & vomiting continue zofran for nausea/vomiting (6) Hypothyroidism Continue home medications (7) thrombocytopenia Most likely secondary to her liver cirrhosis Discharge Plan: Home Plan to discharge in: 24 Hours
--- NOTE | 2018-08-18 17:14 | P.PN ---
Subjective Date of Service: 08/18/18 Chief Complaint: Alcohol intoxication, chronic diarrhea, N/V, general abdominal pain Subjective: Improving (Glaringly positive gastric emptying study today with 97% retention at 2 hours. Amazingly after test she received Reglan 10 mg IV for 1st time and since then has not had any N/V nor abdominal pain today; she has been able to subsequently tolerated all po intake. She has less diarrhea today as well. She noted eating only one meal per day usually after 5 PM; never eats breakfast. She plans to attend or rehab program for alcohol after discharge. Possible drug reaction with hives and itching after Phenergan injection today, patient reports; medication has been discontinued.) Review of Systems 10-point ROS is otherwise unremarkable Gastrointestinal: Nausea (Improved), Diarrhea (Improved) Neurological: Weakness (Improved), Confusion (None now.) Physical Examination - Vital Signs Temperature: 98.2 F Blood Pressure: 133/92 Pulse: 78 Respirations: 20 Pulse Ox (%): 94 - Physical Exam General: Alert, In no apparent distress, Oriented x3, Cooperative (Improved appearance today) HEENT: Atraumatic, Normocephalic, PERRLA, EOMI Neck: Supple Respiratory: Normal air movement Cardiovascular: Normal pulses Gastrointestinal: Soft and benign, No tenderness, No rebound, No guarding Neurological: Normal speech, Normal strength at 5/5 x4 extr - Studies Microbiology Data (last 24 hrs): 08/14/18 19:42 Stool Culture & Sensitivity - Final Medications List Reviewed: Yes Assessment And Plan - Current Problems (Diagnosis) (1) Chronic diarrhea Onset Date: 08/17/18 Current Visit: Yes Status: Acute Comment: Improved with start of Lomotil 1 tab qid. (2) Alcohol abuse Onset Date: 01/13/17 Current Visit: No Status: Acute Comment: Wants to go to rehab facility upon discharge. Will get consult. (3) Anemia Current Visit: No Status: Acute Comment: also with decrease of plts 125 to 90 to 50. Possible heparin antibody induced. Qualifiers: Qualified Code(s): D64.9 - Anemia, unspecified (4) Cirrhosis Onset Date: 07/07/17 Current Visit: No Status: Acute Comment: Due to prior EtOH abuse. Wants to go to rehab facility upon discharge. Will get SW consult. Qualifiers: Qualified Code(s): K70.30 - Alcoholic cirrhosis of liver without ascites (5) Dehydration Onset Date: 01/13/17 Current Visit: No Status: Acute Comment: Resolved. IVFs stopped with cirrhosis and mild ascites on admission imaging (CT and U/S). She has gained 5 lbs since admission. Will recheck U/S abdomen and consider diurectic therapy. (6) Generalized abdominal pain Onset Date: 07/07/17 Current Visit: No Status: Acute Comment: Improved (7) Nausea & vomiting Onset Date: 07/07/17 Current Visit: No Status: Acute Qualifiers: Qualified Code(s): R11.2 - Nausea with vomiting, unspecified - Plan REC: 1) continue Reglan qac/qhs 2) await colonoscopy & EGD pathology 3) continue prn pain medications / anti-emetics 4) but discontinue Phenergan with possible drug reaction with hives and itching 5) continue BDZs (e.g. Librium 25 mg po tid) for 4 days on discharge tomorrow 6) continue Thiamine and folate 7) await other diarrhea labs & heparin antibodies (had to be redrawn) 8) continue Xifaxan
[2018-08-18] MEDS: CHOLESTYRAMINE/ASP 4 GM/PKT PO SCH (22:20)
[2018-08-18 22:50] VITALS: O2SAT 96
[2018-08-19] MEDS: NA CHLORIDE 0.9% 1,000 ML IV SCH ×2 (00:25→10:25)
[2018-08-19] MEDS: METRONIDAZOLE 500mg IVPB 500 MG/100 ML BAG IV SCH ×2 (00:36→05:19)
[2018-08-19] MEDS: ONDANSETRON 4 MG/2 ML VIAL IV SCH ×2 (03:18→09:55)
[2018-08-19] MEDS: HYDROMORPHONE HCL 2 MG/ML inj IV PRN (03:31)
[2018-08-19] MEDS: LEVOTHYROXINE SOD 0.1 MG TAB PO SCH (05:19)
[2018-08-19] MEDS: PANTOPRAZOLE 40MG TABLET PO SCH (05:55)
[2018-08-19] MEDS ORDERED: MAGNESIUM SULFATE 1 gm IVPB 1 GM/100 ML BAG IV ONE (07:00)
[2018-08-19] MEDS: METOCLOPRAMIDE 10 MG/2mL INJ IV SCH (07:55)
[2018-08-19] MEDS: FOLIC ACID 1 MG, MULTIVITAMINS INJ 10 ML, THIAMINE HCL 100 MG in NA CHLORIDE 0.9% 1,000 ML IV SCH (09:00)
[2018-08-19] MEDS: chlordiazePOXIDE HCl 25 MG CAP PO SCH (09:00)
[2018-08-19] MEDS: DESVENLAFAXINE SUCCINATE 50 MG ER TAB PO SCH (09:49)
[2018-08-19] MEDS: Rifaximin 550 MG Tab PO SCH (09:50)
[2018-08-19] MEDS: NEBIVOLOL HCL 20 MG TABLET PO SCH (09:52)
[2018-08-19] MEDS: MONTELUKAST 10 MG TAB PO SCH (09:53)
[2018-08-19] MEDS: hydroCHLOROthiazide 12.5 MG CAP PO SCH (09:54)
[2018-08-19] MEDS: CIPROFLOXACIN 400mg IV 400 MG/200 ML BAG IV SCH (09:55)
[2018-08-19 09:58] VITALS: BP 115/60
[2018-08-19 11:30] VITALS: TEMP 98.9
--- NOTE | 2018-08-19 13:55 | P.DS ---
Admission Date: 08/15/18 Discharge Date: 08/19/18 Disposition: ROUTINE DISCHARGE Discharge Condition: GOOD Reason for Admission: Alcohol intoxication, chronic diarrhea, N/V, general abdominal pain Consultations: GI, Dr. barrett Procedures: Gastric emptying study, positive Brief History of Present Illness: Ms Luke is a 48-year-old woman with history of hypothyroidism, alcohol abuse , hypertension, who came to ED complaining of diarrhea. 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 She also states that has had fever 101.0 F, however in ER was 97.0. The patient came also intoxicated with alcohol, she said the only drink 1 shot at night, alcohol level 324. Lab work remarkable for hemoglobin of 10.1, abnormal transaminase Alkaline phosphate, ammonia level 58. Hospital Course: Patient was admitted for abdominal pain. She was kept NPO, started on IV fluids. CT scan of the abdomen showed a possible colitis. GI was consulted and she underwent EGD and colonoscopy. We are still pending those results. She was started on Zofran, Protonix, Questran and her pain is being managed tramadol. She continued to be nauseous, unable to tolerate liquids. She then underwent a gastric emptying study, which was positive with 97% of retention in 2 hr. She was then started on Reglan, which helps improve her symptoms drastically. She was able to then tolerate the p.o. diet without abdominal pain , nausea or vomiting. She did have a polyp in her sigmoid colon which she will need upper section and will need to reschedule an appointment outpatient with Dr. koehler in 1 month. It is she will also follow up with Dr. koehler regarding the EGD/colonoscopy biopsy results. At the time of discharge, she was tolerating this GI soft diet without any abdominal pain, nausea or vomiting. She was denying any other symptoms or complaints. For her alcohol abuse, she was educated/counseled on alcohol cessation. She continued to have thiamine and folate throughout the hospitalization. She was also getting Librium 25 mg t.i.d. she was discharged on p.o. Librium 25 mg t.i.d. for 4 more days. She was already registered for help with alcohol cessation. The program and in [place] and she plans on attending that after discharge. She did have varices and gastropathy on EGD. She was discharged on oral Protonix. We will continue to follow up Dr. koehler out patient. For her diarrhea, her C. diff was negative. She did receive empiric IV antibiotics throughout her stay. She also got Lomotil snd xifaxan. Antibiotics discontinued on discharge as her diarrhea had resolved. She received Zofran/Phenergan as needed for nausea and vomiting. It seemed like she had a reaction to Phenergan, which was then discontinued. For hypothyroidism home medications were continued. No changes made to dosage at the time of discharge. Vital Signs/Physical Exam: Temp Pulse Resp BP Pulse Ox 98.9 F 75 18 115/60 98 08/19/18 08:00 08/19/18 09:52 08/19/18 08:00 08/19/18 09:52 08/19/18 08:00 General: Alert, In no apparent distress HEENT: Atraumatic, PERRLA, EOMI Neck: Supple, JVD not distended Respiratory: Clear to auscultation bilaterally, Normal air movement Cardiovascular: Regular rate/rhythm, Normal S1 S2 Gastrointestinal: Normal bowel sounds, No tenderness Musculoskeletal: No tenderness Integumentary: No rashes Neurological: Normal speech, Normal tone, Normal affect Lymphatics: No axilla or inguinal lymphadenopathy Laboratory Data at Discharge: WBC 3.2 K/uL (4.3-10.9) L D 08/16/18 07:07 Hgb 8.9 g/dL (12.0-15.0) L 08/16/18 07:07 Hct 26.2 % (36.0-45.0) L 08/16/18 07:07 Plt Count 52 K/uL (152-406) L* D 08/16/18 07:07 PT 13.6 SECONDS (9.5-12.5) H 08/13/18 19:20 INR 1.15 08/13/18 19:20 APTT 33.9 SECONDS (24.3-36.9) 08/13/18 19:20 Sodium 142 mmol/L (136-145) 08/18/18 06:00 Potassium 4.8 mmol/L (3.5-5.1) 08/18/18 20:32 BUN 2 mg/dL (7-18) L 08/18/18 06:00 Creatinine 0.70 mg/dL (0.55-1.3) 08/18/18 06:00 Glucose 86 mg/dL (74-106) 08/18/18 06:00 Phosphorus 3.8 mg/dL (2.5-4.9) 08/18/18 06:00 Magnesium 1.6 mg/dL (1.8-2.4) L 08/19/18 05:20 Total Bilirubin 1.2 mg/dL (0.2-1.0) H 08/16/18 07:07 AST 101 U/L (15-37) H 08/16/18 07:07 ALT 35 U/L (12-78) 08/16/18 07:07 Alkaline Phosphatase 203 U/L (45-117) H 08/16/18 07:07 Troponin I < 0.02 ng/mL (0.0-0.045) 08/13/18 19:20 Lipase 325 U/L (73-393) 08/14/18 13:54 Home Medications: Lactobacillus Acidophilus [Acidophilus Lactobacilli] 1 each PO DAILY #30 Levothyroxine Sodium [Synthroid] 175 mcg PO DAILY #30 tablet 07/11/17 Montelukast [Singulair*] 10 mg PO DAILY #30 tab 07/11/17 Nebivolol HCl [Bystolic*] 20 mg PO DAILY #30 07/11/17 Sucralfate [Carafate] 10 ml PO ACHS #90 tab 07/11/17 Tramadol HCl [Ultram] 50 mg PO Q6H PRN #60 07/11/17 hydroCHLOROthiazide [Hydrochlorothiazide*] 12.5 mg PO DAILY #30 cap 07/11/17 Desvenlafaxine Succinate [Pristiq] 50 mg PO DAILY 08/14/18 Cholestyramine/Asp [Questran Light*] 8 gm PO BEDTIME #30 packet 08/19/18 Metoclopramide HCl [Reglan] 10 mg PO 30 MIN BEFORE HS #30 tablet 08/19/18 Ondansetron HCl [Zofran] 4 mg PO Q12HP PRN #20 tablet 08/19/18 Pantoprazole [Protonix Tab*] 40 mg PO DAILYAC #30 tab 08/19/18 chlordiazePOXIDE HCl [Librium*] 25 mg PO TID #12 cap 08/19/18 New Medications: Ondansetron HCl [Zofran] 4 mg PO Q12HP PRN #20 tablet PRN Reason: Nausea chlordiazePOXIDE HCl [Librium*] 25 mg PO TID #12 cap Cholestyramine/Asp [Questran Light*] 8 gm PO BEDTIME #30 packet Metoclopramide HCl [Reglan] 10 mg PO 30 MIN BEFORE HS #30 tablet Pantoprazole [Protonix Tab*] 40 mg PO DAILYAC #30 tab Patient Discharge Instructions: Please follow up with the primary care physician in 1 week. Please follow up with gastroenterology, Dr. koehler in 2 weeks. New medications, prescription sent his pharmacy: Librium,Reglan, Zofran , Protonix and Questran Diet: Soft, advance as tolerated Activity: Ad zion Followup: Isidoro Whitaker MD [ACTIVE - CAN ADMIT] - Isidoro Barrett MD [Primary Care Provider] - Time spent managing pt's care (in minutes): 55
== END 2018-08-19 12:00 | disposition home or self-care (01) | DRG 897 ==
LOC: ER 18:02 → ERHOLD 23:18 → 4TH 08-14 00:21 → OBSVTOIN 08-15 23:18
PROVIDERS: ADMIT Internal Medicine; ATTEND Family Medicine
PROC: 0DBF8ZX Excision of Right Large Intestine, Via Natural or Artificial Opening Endoscopic, Diagnostic (ICD-10-PCS; 2018-08-16)
PROC: 0DB78ZX Excision of Stomach, Pylorus, Via Natural or Artificial Opening Endoscopic, Diagnostic (ICD-10-PCS; 2018-08-16)
PROC: 0DB88ZX Excision of Small Intestine, Via Natural or Artificial Opening Endoscopic, Diagnostic (ICD-10-PCS; 2018-08-16)
PROC: 0DBG8ZX Excision of Left Large Intestine, Via Natural or Artificial Opening Endoscopic, Diagnostic (ICD-10-PCS; principal; 2018-08-16 08:00)
PROC: 0DBP8ZX Excision of Rectum, Via Natural or Artificial Opening Endoscopic, Diagnostic (ICD-10-PCS; 2018-08-16 08:00)
DX: F10.120 Alcohol abuse with intoxication, uncomplicated (principal); K76.6 Portal hypertension; I85.10 Secondary esophageal varices without bleeding; K70.30 Alcoholic cirrhosis of liver without ascites; K57.90 Diverticulosis of intestine, part unspecified, without perforation or abscess without bleeding; Y90.2 Blood alcohol level of 40-59 mg/100 ml; E03.9 Hypothyroidism, unspecified; I10 Essential (primary) hypertension; R19.7 Diarrhea, unspecified; K63.5 Polyp of colon; F17.210 Nicotine dependence, cigarettes, uncomplicated; R11.2 Nausea with vomiting, unspecified; D69.6 Thrombocytopenia, unspecified; E87.6 Hypokalemia; E83.39 Other disorders of phosphorus metabolism; E86.0 Dehydration; K64.8 Other hemorrhoids; K31.89 Other diseases of stomach and duodenum; K29.60 Other gastritis without bleeding; D75.89 Other specified diseases of blood and blood-forming organs
CPT/HCPCS: 36415; 71045; 71260; 74177; 76705; 78264; 80048; 80053; 80076; 80307; 80320; 80329; 81003; 81025; 82140; 82274; 82607; 82746; 82784; 82962; 83516; 83690; 83735; 84100; 84132; 84439; 84443; 84484; 85025; 85610; 85730; 86022; 86850; 86900; 86901; 87045; 87046; 87177; 87209; 87493; 88305; 88312; 93005; 94760; 96365; 96366; 96375; 99285; A9541; C9113; G0378; J0610; J0744; J1170; J1650; J2405; J2550; J2704; J2765; J3010; J3411; J3475; J7030; Q9967

== ENCOUNTER 2018-08-28 08:32 | Inpatient (IN) | payer OTHER ==
[2018-08-28 09:14] LABS: Urine Blood NEGATIVE (NEG); Urine Glucose NEGATIVE (NEG); Urine Protein NEGATIVE (NEG); Urine Specific Gravity 1.015 (1.005-1.030)
[2018-08-28] MEDS ORDERED: ONDANSETRON 4 MG/2 ML VIAL ONE ×2 (09:29→11:05)
[2018-08-28] MEDS ORDERED: PANTOPRAZOLE 40 MG INJ ONE (09:29)
[2018-08-28] MEDS ORDERED: NA CHLORIDE 0.9% 1,000 ML ONE ×4 (09:29→16:18)
[2018-08-28 09:44] LABS: Absolute Lymphocytes (CBC) 1.7 K/uL (0.7-4.9); Absolute Monocytes 0.5 K/uL (0.1-1.3); Absolute Neutrophil 3.2 K/uL (1.8-8.0); Basophils % 1.2 % (0-1.3); Hematocrit 28.7 % (36.0-45.0); Lymphocytes % 30.8 % (15.3-44.8); MCH 36.3 pg (27.0-35.0); MCV 106.4 fL (80-100); MPV 9.5 fL (7.6-11.3); Monocytes % 8.6 % (3.3-12.3)
[2018-08-28 09:50] LABS: Albumin 3.2 g/dL (3.4-5.0); Bilirubin Direct 0.5 mg/dL (0-0.2); Bilirubin Total 0.7 mg/dL (0.2-1.0); Magnesium 1.5 mg/dL (1.8-2.4); Potassium 4.6 mmol/L (3.5-5.1); Protein, Total 7.3 g/dL (6.4-8.2)
[2018-08-28] MEDS ORDERED: PANTOPRAZOLE INJ 80 MG in NA CHLORIDE 0.9% 250 ML IV SCH (10:00)
[2018-08-28 10:20] LABS: Platelet Estimate ADEQ; Urine White Blood Cell Casts OK
[2018-08-28 10:21] LABS: Anisocytosis 1+; Blood Morphology Comment NOT SEEN (NOT SEEN); Macrocytosis 1+; Platelets, Giant RARE
[2018-08-28] MEDS ORDERED: METOCLOPRAMIDE 10 MG/2mL INJ ONE (10:34)
[2018-08-28] MEDS ORDERED: Magnesium Sulfate 2gm IVPB 2 G/50 ML BAG IV ONE (10:52)
[2018-08-28] MEDS ORDERED: MEPERIDINE HCL 25 MG/0.5 ML ONE (11:05)
--- NOTE | 2018-08-28 11:22 | ER ---
Nurse's Notes [facility] Name: Yudy Luke Age: 48 yrs Sex: Female : 1970 Arrival Date: 08/28/2018 Time: 08:34 Bed 6 Private MD: Isidoro Nino H Diagnosis: Melena;Gastrointestinal hemorrhage, unspecified-upper GI;Anemia ;Abdominal and pelvic pain Presentation: 08/28 08:44 Presenting complaint: Patient states: checked in a rehab facility on Friday and lab sv work was drawn, HGB-8.7. Pt reports black tarry stools, abd cramping, unable to tolerate food. Last vodka drink 5 days ago. Transition of care: patient was not received from another setting of care. Onset of symptoms was August 18, 2018. Risk Assessment: Do you want to hurt yourself or someone else? Patient reports no desire to harm self or others. Initial Sepsis Screen: Does the patient meet any 2 criteria? No. Patient's initial sepsis screen is negative. Does the patient have a suspected source of infection? No. Patient's initial sepsis screen is negative. Care prior to arrival: None. 08:44 Method Of Arrival: Wheelchair sv 08:44 Acuity: FABY 3 sv Triage Assessment: 08:45 General: Appears in no apparent distress. uncomfortable, well groomed, Behavior is sv cooperative, anxious. Pain: Complains of pain in left upper quadrant and right upper quadrant and epigastric area Pain currently is 10 out of 10 on a pain scale. Pain began 10 days ago Is continuous, Noted to be guarding, moaning. EENT: No signs and/or symptoms were reported regarding the EENT system. Neuro: Level of Consciousness is awake, alert, obeys commands, Oriented to person, place, time, situation, Moves all extremities. Full function Gait is steady, Speech is normal. Respiratory: Respiratory effort is even, unlabored, Respiratory pattern is regular, symmetrical. GI: Abdomen is round Abd is soft X 4 quads Abdomen is tender to palpation X 4 quads. Reports upper abdominal pain, cramping, diarrhea, intolerance of food, nausea, vomiting. Derm: Skin is normal. Musculoskeletal: No signs and/or symptoms reported regarding the musculoskeletal system. 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 - Social history:: Smoking status: Patient uses tobacco products, denies chronic smoking, but will smoke occasionally, Patient/guardian denies using alcohol, quit 5 days ago. - Ebola Screening: : No symptoms or risks identified at this time. Screenin:45 Abuse screen: Denies threats or abuse. Denies injuries from another. Nutritional sv screening: On no prescribed diet Difficulty chewing/swallowing? No unknown Has had N/V for 3 or more days Intervention for positive screen: ED Physician notified. Tuberculosis screening: No symptoms or risk factors identified. Fall Risk None identified. Assessment: 09:33 Reassessment: Patient appears in no apparent distress at this time. No changes from sv previously documented assessment. Patient and/or family updated on plan of care and expected duration. Pain level reassessed. Patient is alert, oriented x 3, equal unlabored respirations, skin warm/dry/pink. 10:20 Reassessment: Patient appears in no apparent distress at this time. No changes from sv previously documented assessment. Patient and/or family updated on plan of care and expected duration. Pain level reassessed. Patient is alert, oriented x 3, equal unlabored respirations, skin warm/dry/pink. 10:46 Reassessment: Patient appears in no apparent distress at this time. No changes from sv previously documented assessment. Patient and/or family updated on plan of care and expected duration. Pain level reassessed. Patient is alert, oriented x 3, equal unlabored respirations, skin warm/dry/pink. 11:05 Reassessment: Patient appears in no apparent distress at this time. No changes from sv previously documented assessment. Patient and/or family updated on plan of care and expected duration. Pain level reassessed. Patient is alert, oriented x 3, equal unlabored respirations, skin warm/dry/pink. 11:30 Reassessment: Patient appears in no apparent distress at this time. No changes from sv previously documented assessment. Patient and/or family updated on plan of care and expected duration. Pain level reassessed. Patient is alert, oriented x 3, equal unlabored respirations, skin warm/dry/pink. 13:49 Reassessment: Patient appears in no apparent distress at this time. attempt to call sg report to ICU nurse for bed 7, Physicians making rounds, nurse unavailable, pt and pt family updated on POC and awaiting call back, pt requesting pain medication for abdominal pain, non pharm interventions offered, no relief, Ana VARGAS notified. 14:08 Reassessment: report called to Willian DYSON for ICU bed 7. sg Vital Signs: 08:45 Pulse 99; Resp 18; Pulse Ox 100% on R/A; sg 08:57 Temp 98.7; Weight 74.84 kg; Height 5 ft. 3 in. (160.02 cm); Pain 10/10; sv 09:24 BP 101 / 64; Pulse 82; Resp 18; Pulse Ox 100% ; sv 11:07 BP 85 / 57; Pulse 87; Resp 16; Pulse Ox 99% ; sv 11:27 BP 92 / 52; Pulse 86; Resp 16; Pulse Ox 99% ; sv 12:47 BP 98 / 58; Pulse 79; Resp 18; Pulse Ox 99% ; sv 14:09 BP 82 / 51; Pulse 100; Resp 17; Temp 98.7; Pulse Ox 100% on R/A; sg 08:57 Body Mass Index 29.23 (74.84 kg, 160.02 cm) sv ED Course: 08:34 Patient arrived in ED. mr 08:35 Isidoro Nino MD is Private Physician. mr 08:39 Katy Orellana, KARIS is Primary Nurse. sv 08:41 Mikhail Velásquez PA is PHCP. jr8 08:42 J Carlos Dorado MD is Attending Physician. jr8 08:44 Arm band placed on Patient placed in an exam room, on a stretcher. sv 08:54 Triage completed. sv 08:58 Patient has correct armband on for positive identification. Placed in gown. Bed in low sv position. Call light in reach. Adult w/ patient. Pulse ox on. NIBP on. Door closed. Warm blanket given. Head of bed elevated. 09:10 Initial lab(s) drawn, by ED staff, sent to lab. T\T\S collected, blood band applied to sv patient. Inserted saline lock: 18 gauge in right EJ, using aseptic technique. ,using aseptic technique. done by Mikhail VARGAS Blood collected. 10:20 Inserted saline lock: 22 gauge in left forearm, using aseptic technique. ,using aseptic sv technique. diffusics. 10:25 Inserted saline lock: 22 gauge in right forearm, using aseptic technique. ,using sv aseptic technique. diffusics. 10:42 Occult Blood Sent. sv 11:20 Roberto Velasquez DO is Hospitalizing Provider. jr8 11:24 Repeat lab(s) drawn. by wi, sent to lab. jb1 11:30 One-on-one care X 120 minutes. sv 12:30 Ultrasound completed. Patient moved back from ultrasound. aa4 12:45 CT Abd/Pelvis - W/Contrast Sent. sv 14:05 No provider procedures requiring assistance completed. Patient admitted, IV remains in sv place. intact. Administered Medications: 09:33 Drug: Zofran 4 mg Route: IVP; Site: right jugular; sv 10:00 Follow up: Response: No adverse reaction sv 09:35 Drug: NS 0.9% 1000 ml Route: IV; Rate: 1000 ml; Site: right jugular; sv 10:47 Follow up: IV SiteChange: right forearm; IV SiteChange Reason: Patient removed; Pt sv wanting IV removed from EJ. 11:08 Follow up: Response: No adverse reaction; IV Status: Completed infusion; IV Intake: sv 1000ml 09:35 Drug: ProTONIX 40 mg Route: IVP; Site: right jugular; sv 10:00 Follow up: Response: No adverse reaction sv 10:00 Drug: ProTONIX 8 mg/hr Route: IV; Rate: 25 ml/hr; Site: right jugular; sv 10:46 Follow up: IV SiteChange: right forearm; IV SiteChange Reason: Patient removed; Pt sv wanting IV removed from EJ. 14:08 Follow up: Response: No adverse reaction; IV Status: Infusion continued upon admission sv 10:35 Drug: Reglan 10 mg Route: IVP; Site: right forearm; sv 10:47 Follow up: Response: No adverse reaction sv 11:00 Drug: Magnesium Sulfate 2 grams Route: IVPB; Infused Over: 2 hrs; Site: left forearm; sv 12:56 Follow up: Response: No adverse reaction; IV Status: Completed infusion; IV Intake: sv 100ml 11:03 Drug: Zofran 4 mg Route: IVP; Site: right forearm; sv 11:30 Follow up: Response: No adverse reaction sv 11:05 Drug: Demerol 25 mg Route: IVP; Site: right forearm; sv 11:30 Follow up: Response: No adverse reaction sv 11:30 Drug: NS 0.9% 1000 ml Route: IV; Rate: 1000 ml; Site: right forearm; sv 12:30 Follow up: Response: No adverse reaction; IV Status: Completed infusion; IV Intake: sv 1000ml 14:02 Drug: NS 0.9% 1000 ml Route: IV; Rate: 1000 ml; Site: left antecubital; sg 14:08 Follow up: IV Status: Infusion continued upon admission sv Intake: 11:08 IV: 1000ml; Total: 1000ml. sv 12:30 IV: 1000ml; Total: 2000ml. sv 12:56 IV: 100ml; Total: 2100ml. sv Outcome: 11:21 Decision to Hospitalize by Provider. jr8 14:08 Admitted to ICU accompanied by nurse, accompanied by tech, family with patient, via sv stretcher, room 7, on monitor, with chart, Report called to Willian RN 14:08 Condition: stable 14:08 Instructed on the need for admit. 14:35 Patient left the ED. Signatures: Kyle Coronado Stephanie, RN KARIS Sanjay Nagy RN KARIS Zulma Johnson Brittany aa4 Maria Victoria Carolina RN RN Mikhail Velásquez PA PA jr8 Corrections: (The following items were deleted from the chart) 10:42 09:10 Initial lab(s) drawn, by ED staff, sent to lab. sv sv 11:09 08:57 74.84 kg; Height 5 ft. 3 in.; BMI: 29.2; Pain 10/; sv sv 19:26 19:26 One-on-one care X 120 minutes sv sv
--- NOTE | 2018-08-28 11:22 | EDPHYS ---
Physician Documentation [facility] Name: Yudy Luke Age: 48 yrs Sex: Female : 1970 Arrival Date: 08/28/2018 Time: 08:34 Bed 6 Private MD: Isidoro Nino H ED Physician J Carlos Dorado HPI: 08/28 11:11 This 48 yrs old Female presents to ER via Wheelchair with complaints of jr8 Abdominal Pain, Diarrhea. 11:11 The patient presents with abdominal pain in the upper abdomen. Onset: The jr8 symptoms/episode began/occurred gradually, 2 day(s) ago. The symptoms do not radiate. Associated signs and symptoms: Pertinent positives: nausea and vomiting, diarrhea, tarry stools. The symptoms are described as crampy. Modifying factors: The symptoms are alleviated by nothing, the symptoms are aggravated by food. Severity of pain: At its worst the pain was moderate in the emergency department the pain is unchanged. The patient has not experienced similar symptoms in the past. The patient has been recently seen by a physician:. Patient with history of alcohol abuse and esophageal varices. Started to have dark tarry stool for one week. Had labs drawn a few days ago showing decrease in H/H. Continued cramping in abdomen . 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 - Social history:: Smoking status: Patient uses tobacco products, denies chronic smoking, but will smoke occasionally, Patient/guardian denies using alcohol, quit 5 days ago. - Ebola Screening: : No symptoms or risks identified at this time. ROS: 11:11 Eyes: Negative for injury, pain, redness, and discharge, ENT: Negative for injury, jr8 pain, and discharge, Neck: Negative for injury, pain, and swelling, Cardiovascular: Negative for chest pain, palpitations, and edema, Respiratory: Negative for shortness of breath, cough, wheezing, and pleuritic chest pain, Back: Negative for injury and pain, MS/Extremity: Negative for injury and deformity, Skin: Negative for injury, rash, and discoloration, Neuro: Negative for headache, weakness, numbness, tingling, and seizure. 11:11 Abdomen/GI: Positive for abdominal pain, nausea, vomiting, and diarrhea, abdominal cramps, black/tarry stool. Exam: 11:11 Eyes: Pupils equal round and reactive to light, extra-ocular motions intact. Lids and jr8 lashes normal. Conjunctiva and sclera are non-icteric and not injected. Cornea within normal limits. Periorbital areas with no swelling, redness, or edema. ENT: Nares patent. No nasal discharge, no septal abnormalities noted. Tympanic membranes are normal and external auditory canals are clear. Oropharynx with no redness, swelling, or masses, exudates, or evidence of obstruction, uvula midline. Mucous membranes moist. Neck: Trachea midline, no thyromegaly or masses palpated, and no cervical lymphadenopathy. Supple, full range of motion without nuchal rigidity, or vertebral point tenderness. No Meningismus. Cardiovascular: Regular rate and rhythm with a normal S1 and S2. No gallops, murmurs, or rubs. Normal PMI, no JVD. No pulse deficits. Respiratory: Lungs have equal breath sounds bilaterally, clear to auscultation and percussion. No rales, rhonchi or wheezes noted. No increased work of breathing, no retractions or nasal flaring. Back: No spinal tenderness. No costovertebral tenderness. Full range of motion. Skin: Warm, dry with normal turgor. Normal color with no rashes, no lesions, and no evidence of cellulitis. MS/ Extremity: Pulses equal, no cyanosis. Neurovascular intact. Full, normal range of motion. Neuro: Awake and alert, GCS 15, oriented to person, place, time, and situation. Cranial nerves II-XII grossly intact. Motor strength 5/5 in all extremities. Sensory grossly intact. Cerebellar exam normal. Normal gait. 11:11 Abdomen/GI: Inspection: obese Bowel sounds: active, all quadrants, Palpation: soft, in all quadrants, moderate abdominal tenderness, in the epigastric area, right upper quadrant and left upper quadrant, mass, is not appreciated, rebound tenderness, is not appreciated, voluntary guarding, is not appreciated, involuntary guarding, is not appreciated, no appreciated organomegaly, Rectal exam: Stool: guaiac positive, black, Indicators: McBurney's point is not tender, Osborne's sign is negative, Rovsing's sign is negative, Liver: tenderness, is not appreciated. Vital Signs: 08:45 Pulse 99; Resp 18; Pulse Ox 100% on R/A; sg 08:57 Temp 98.7; Weight 74.84 kg; Height 5 ft. 3 in. (160.02 cm); Pain 10/10; sv 09:24 BP 101 / 64; Pulse 82; Resp 18; Pulse Ox 100% ; sv 11:07 BP 85 / 57; Pulse 87; Resp 16; Pulse Ox 99% ; sv 11:27 BP 92 / 52; Pulse 86; Resp 16; Pulse Ox 99% ; sv 12:47 BP 98 / 58; Pulse 79; Resp 18; Pulse Ox 99% ; sv 14:09 BP 82 / 51; Pulse 100; Resp 17; Temp 98.7; Pulse Ox 100% on R/A; sg 08:57 Body Mass Index 29.23 (74.84 kg, 160.02 cm) sv MDM: 08:43 Patient medically screened. [facility] 11:11 Data reviewed: vital signs, nurses notes, lab test result(s), and as a result, I will jr8 admit patient. Data interpreted: Pulse oximetry: on room air is 100 %. Interpretation: normal. Counseling: I had a detailed discussion with the patient and/or guardian regarding: the historical points, exam findings, and any diagnostic results supporting the discharge/admit diagnosis, lab results, the need for further work-up and treatment in the hospital. Physician consultation: Roberto Velasquez DO was called at 11:18, was contacted at 11:18, regarding admission, to the telemetry unit. consult, patient's condition. 11:48 ED course: Called and Left message with Dr. Nino as this is his patient and is on jr8 call today. Dr. Velasquez called and left message as well . 08/28 09:06 Order name: Urine Dipstick--Ancillary (enter results); Complete Time: 09:15 mw2 08/28 09:06 Order name: Urine --Ancillary (enter results); Complete Time: 09:15 mw2 08/28 09:14 Order name: Basic Metabolic Panel; Complete Time: 10:11 [facility] 08/28 09:14 Order name: CBC with Diff; Complete Time: 10:26 [facility] 08/28 09:14 Order name: Creatinine for Radiology; Complete Time: 10:11 [facility] 08/28 09:14 Order name: Hepatic Function; Complete Time: 10:11 [facility] 08/28 09:14 Order name: Lipase; Complete Time: 10: [facility] 08/28 09:14 Order name: Magnesium; Complete Time: 10: [facility] 08/28 09:14 Order name: TS [facility] 08/28 09:17 Order name: Occult Blood [facility] 08/28 09:49 Order name: CBC Smear Scan; Complete Time: 10:26 [facility]MS 08/28 10:47 Order name: Occult Blood; Complete Time: 13:40 EDMS 08/28 11:24 Order name: CBC with Diff; Complete Time: 11:49 [facility] 08/28 13:56 Order name: Hemoglobin [facility] 08/28 09:14 Order name: IV Saline Lock; Complete Time: 10:38 [facility] 08/28 11:37 Order name: CT Abd/Pelvis - W/Contrast [facility] 08/28 11:48 Order name: CONS Physician Consult; Complete Time: 12:45 EDMS 08/28 12:28 Order name: CT; Complete Time: 12:29 EDMS 08/28 13:02 Order name: US; Complete Time: 13:08 EDMS 08/28 14:22 Order name: Hemoglobin; Complete Time: 14:23 EDMS 08/28 09:14 Order name: Labs collected and sent; Complete Time: 10:38 [facility] Administered Medications: 09:33 Drug: Zofran 4 mg Route: IVP; Site: right jugular; sv 10:00 Follow up: Response: No adverse reaction sv 09:35 Drug: NS 0.9% 1000 ml Route: IV; Rate: 1000 ml; Site: right jugular; sv 10:47 Follow up: IV SiteChange: right forearm; IV SiteChange Reason: Patient removed; Pt sv wanting IV removed from EJ. 11:08 Follow up: Response: No adverse reaction; IV Status: Completed infusion; IV Intake: sv 1000ml 09:35 Drug: ProTONIX 40 mg Route: IVP; Site: right jugular; sv 10:00 Follow up: Response: No adverse reaction sv 10:00 Drug: ProTONIX 8 mg/hr Route: IV; Rate: 25 ml/hr; Site: right jugular; sv 10:46 Follow up: IV SiteChange: right forearm; IV SiteChange Reason: Patient removed; Pt sv wanting IV removed from EJ. 14:08 Follow up: Response: No adverse reaction; IV Status: Infusion continued upon admission sv 10:35 Drug: Reglan 10 mg Route: IVP; Site: right forearm; sv 10:47 Follow up: Response: No adverse reaction sv 11:00 Drug: Magnesium Sulfate 2 grams Route: IVPB; Infused Over: 2 hrs; Site: left forearm; sv 12:56 Follow up: Response: No adverse reaction; IV Status: Completed infusion; IV Intake: sv 100ml 11:03 Drug: Zofran 4 mg Route: IVP; Site: right forearm; sv 11:30 Follow up: Response: No adverse reaction sv 11:05 Drug: Demerol 25 mg Route: IVP; Site: right forearm; sv 11:30 Follow up: Response: No adverse reaction sv 11:30 Drug: NS 0.9% 1000 ml Route: IV; Rate: 1000 ml; Site: right forearm; sv 12:30 Follow up: Response: No adverse reaction; IV Status: Completed infusion; IV Intake: sv 1000ml 14:02 Drug: NS 0.9% 1000 ml Route: IV; Rate: 1000 ml; Site: left antecubital; sg 14:08 Follow up: IV Status: Infusion continued upon admission sv Disposition: 14:39 Co-signature as Attending Physician, J Carlos Dorado MD I agree with the assessment and joseph plan of care. Disposition: 08/28/18 11:21 Hospitalization ordered by Roberto Velasquez for Inpatient Admission. Preliminary diagnosis are Melena, Gastrointestinal hemorrhage, unspecified - upper GI, Anemia , Abdominal and pelvic pain. - Bed requested for Intensive Care Unit. - Status is Inpatient Admission. ss - Condition is Stable. - Problem is new. - Symptoms have improved. UTI on Admission? No Signatures: Dispatcher [employer] Katy Hicks RN RN Marilyn Bhatti RN RN dw Gay, Steven, RN RN J Carlos Dorado MD MD cha Smirch, Shelby, RN RN Roszak, Mikhail, PA PA jr8 Corrections: (The following items were deleted from the chart) 11:33 11:21 Hospitalization Ordered by Roberto Velasquez DO for Inpatient Admission. Preliminary jr8 diagnosis is Melena; Gastrointestinal hemorrhage, unspecified - upper GI; Anemia ; Abdominal and pelvic pain. Bed requested for Telemetry/MedSurg (Inpatient). Status is Inpatient Admission. Condition is Stable. Problem is new. Symptoms have improved. UTI on Admission? No. jr8 13:46 11:33 08/28/2018 11:21 Hospitalization Ordered by Roberto Ron MALONE for Inpatient dw Admission. Preliminary diagnosis is Melena; Gastrointestinal hemorrhage, unspecified - upper GI; Anemia ; Abdominal and pelvic pain. Bed requested for Intensive Care Unit. Status is Inpatient Admission. Condition is Stable. Problem is new. Symptoms have improved. UTI on Admission? No. jr8 14:35 13:46 08/28/2018 11:21 Hospitalization Ordered by Roberto Velasquez DO for Inpatient ss Admission. Preliminary diagnosis is Melena; Gastrointestinal hemorrhage, unspecified - upper GI; Anemia ; Abdominal and pelvic pain. Bed requested for Intensive Care Unit. Status is Inpatient Admission. Condition is Stable. Problem is new. Symptoms have improved. UTI on Admission? No. dw
[2018-08-28 11:39] LABS: Absolute Lymphocytes (CBC) 1.3 K/uL (0.7-4.9); Absolute Monocytes 0.4 K/uL (0.1-1.3); Absolute Neutrophil 2.2 K/uL (1.8-8.0); Basophils % 1.1 % (0-1.3); Eosinophils % 1.9 % (0-4.4); Hematocrit 26.1 % (36.0-45.0); Lymphocytes % 33.1 % (15.3-44.8); MCH 37.3 pg (27.0-35.0); Monocytes % 8.9 % (3.3-12.3)
[2018-08-28 11:43] LABS: MCV 108.9 fL (80-100)
[2018-08-28] MEDS ORDERED: MORPHINE 2 MG/ML SYR IV PRN (11:44)
[2018-08-28] MEDS ORDERED: ACETAMINOPHEN 650MG/RECT SUPP PR PRN (11:44)
[2018-08-28] MEDS ORDERED: ACETAMINOPHEN 500 MG TAB PO PRN (11:44)
[2018-08-28] MEDS ORDERED: ALBUTEROL 2.5 MG/3 ML NEB SOL NEB PRN (11:44)
[2018-08-28] MEDS ORDERED: IPRATROPIUM BROM 0.5MG/2.5ML NEB PRN (11:44)
--- NOTE | 2018-08-28 12:16 | P.HP ---
Certification for Inpatient Patient admitted to: Inpatient With expected LOS: >2 Midnights Patient will require the following post-hospital care: None Practitioner: I am a practitioner with admitting privileges, knowledge of patient current condition, hospital course, and medical plan of care. Services: Services provided to patient in accordance with Admission requirements found in Title 42 Section 412.3 of the Code of Federal Regulations Patient History Date of Service: 08/28/18 Primary Care Provider: Dr. Whitaker; GI-Dr. Nino Reason for admission: Abdominal pain, melena History of Present Illness: 48-year-old female presented to the emergency room with abdominal pain and melena. Patient presented with abdominal pain, melena. Pain was mainly to the epigastric region. She also reported some nausea, chills, vomiting. Patient recently hospitalized for colitis, gastroparesis, GERD. At that time she had a EGD and colonoscopy done. Gastric study was also done showing gastroparesis. EGD showed esophageal varices and GERD. Colonoscopy showed colon polyp. Since the last discharge, the patient went into alcohol rehab. Patient has not been drinking since that time. Over the last day she has had increasing pain. She was given Advil. Patient has other medical conditions include hypertension, depression, hypothyroidism. Today pain was worse with increasing nausea and vomiting. She was seen in the emergency room for further evaluation. Initially blood pressure elevated at 153/104. Then blood pressure dropped to 89 /51. Initial hemoglobin 9.8, platelet count 135. Sodium 137, potassium 4.6, magnesium low. Lipase pending. AST slightly elevated. Patient had lab done 2 days ago. At that time magnesium was low at 1.1, lipase 114, hemoglobin 8.7. Ammonia level was elevated at 265. Patient given IV fluid bolus. Patient started on IV Protonix in the emergency room. Repeat blood pressure 92/51. Patient appears stable. Patient will go to the ICU. When I saw the patient the ER, she appeared stable. Patient was alert and oriented x3. Pain improved. Patient still reported some abdominal cramping. Melena also improved. Patient reports recent diarrhea. Patient was recently seen in evaluated with C diff negative. Allergies clonazepam Allergy (Severe, Verified 01/13/17 01:55) Anaphylaxis codeine Allergy (Verified 07/04/17 14:26) Nausea/Vomiting Home medications list reviewed: Yes Home Medications: Lactobacillus Acidophilus [Acidophilus Lactobacilli] 1 each PO DAILY #30 Levothyroxine Sodium [Synthroid] 175 mcg PO DAILY #30 tablet 07/11/17 Montelukast [Singulair*] 10 mg PO DAILY #30 tab 07/11/17 Nebivolol HCl [Bystolic*] 20 mg PO DAILY #30 07/11/17 Sucralfate [Carafate] 10 ml PO ACHS #90 tab 07/11/17 Tramadol HCl [Ultram] 50 mg PO Q6H PRN #60 07/11/17 hydroCHLOROthiazide [Hydrochlorothiazide*] 12.5 mg PO DAILY #30 cap 07/11/17 Desvenlafaxine Succinate [Pristiq] 50 mg PO DAILY 08/14/18 Cholestyramine/Asp [Questran Light*] 8 gm PO BEDTIME #30 packet 08/19/18 Metoclopramide HCl [Reglan] 10 mg PO 30 MIN BEFORE HS #30 tablet 08/19/18 Ondansetron HCl [Zofran] 4 mg PO Q12HP PRN #20 tablet 08/19/18 Pantoprazole [Protonix Tab*] 40 mg PO DAILYAC #30 tab 08/19/18 chlordiazePOXIDE HCl [Librium*] 25 mg PO TID #12 cap 08/19/18 - Past Medical/Surgical History Diabetic: No -: Hypothyroidism -: Depression -: Adult attention deficit disorder -: Allergic rhinitis -: GERD -: Esophageal varices -: Gastroparesis -: Anemia -: Tobacco/alcohol use -: Tonsillectomy -: Breast augmentation Psychosocial/ Personal History: Patient is . She has 1 child. 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 - Family History Father -: Heart disease, Other (see notes) Notes: PE Mother -: Heart disease, Cancer Notes: SMALL CELL JOSEPH LUNG CANCER - Social History Smoking Status: Heavy Tobacco smoker (>10 cigarettes/day) Counseled patient to stop smoking for: less than 10 minutes Smoking therapy provided: Yes Patient receptive to therapy: Yes Alcohol use: Yes CD- Drugs: No Caffeine use: No Place of Residence: Home Review of Systems General: Chills, Weakness, Malaise, As per HPI Eyes: Unremarkable ENT: Unremarkable Respiratory: As per HPI Cardiovascular: Light Headedness, As per HPI Gastrointestinal: Nausea, Vomiting, Abdominal Pain, Melena, As per HPI Genitourinary: Unremarkable Musculoskeletal: Unremarkable Integumentary: Unremarkable Neurological: As per HPI Lymphatics: Unremarkable Physical Examination - Physical Exam General: Alert, In no apparent distress, Oriented x3, Cooperative HEENT: Atraumatic, Normocephalic, PERRLA, Other (Dry mucous membranes) Neck: Supple, No Thyromegaly Respiratory: Clear to auscultation bilaterally, Normal air movement Cardiovascular: Normal pulses, Regular rate/rhythm Gastrointestinal: Normal bowel sounds, Soft and benign, Non-distended, No masses , No rebound, No guarding, Tenderness (Pain to the epigastric region) Musculoskeletal: No contractures, No erythema, No tenderness, No warmth Integumentary: No tenderness/swelling, No erythema, No warmth, No cyanosis Neurological: Normal speech, Normal strength at 5/5 x4 extr, Normal tone, Normal affect - Studies Laboratory Data (last 24 hrs) 08/28/18 11:25: WBC 4.0 L D, Hgb 9.0 L, Hct 26.1 L, Plt Count 100 L D 08/28/18 09:00: Creatinine 0.90 08/28/18 09:00: WBC 5.6 D, Hgb 9.8 L, Hct 28.7 L, Plt Count 135 L D 08/28/18 09:00: Sodium 137, Potassium 4.6, BUN 5 L, Creatinine 0.90, Glucose 91 , Magnesium 1.5 L, Total Bilirubin 0.7, AST 65 H, ALT 25, Alkaline Phosphatase 178 H, Lipase 577 H Assessment and Plan - Plan Impression: Nausea, vomiting, abdominal pain, melena, and diarrhea secondary to acute pancreatitis likely complicated with upper GI bleed with history of esophageal varices, GERD, gastroparesis and with recent hospitalization for colitis Acute on chronic anemia likely related to GERD and alcohol use Elevated lipase secondary to acute pancreatitis likely alcohol related Alcohol abuse currently in alcohol rehab Hypotension with history of hypertension Diarrhea suspect colitis Hypothyroidism Depression with anxiety Tobacco abuse Plan: Nausea, vomiting, abdominal pain, melena, and diarrhea secondary to acute pancreatitis complicated with upper GI bleed with history of esophageal varices , GERD, gastroparesis, alcohol use and with recent hospitalization for colitis: Patient will be admitted to ICU. Will continue with Protonix IV drip. Will continue with aggressive IV fluids. Patient will likely require blood transfusion. Will monitor closely. Will check CT abdomen an abdominal ultrasound to further evaluate. GI consulted. Await further recommendations. Will start IV antibiotic therapy. Patient may require intervention to evaluate for possible esophageal bleed. Case discussed with patient and . Both agree with current plan. Will monitor obe 1 closely. Will likely require blood transfusion. Will monitor closely. Message left with GI Acute on chronic anemia likely related to GERD and alcohol use: Will monitor hemoglobin closely. Will recheck hemoglobin in 2 hr. If low patient will require blood transfusion. Elevated lipase secondary to acute pancreatitis likely alcohol related: Will keep the patient NPO. Will check abdominal ultrasound and CT scan. Alcohol abuse currently in alcohol rehab: Currently in outpatient alcohol rehab. Hypotension with history of hypertension: Will continue to monitor and IV fluids. Diarrhea suspect colitis: Will check stool for c. diff. Will start IV antibiotics. Hypothyroidism: Will start IV levothyroxine. Depression with anxiety: Will obtain home meds. Tobacco abuse: Will provide Nicotine patch. Discharge Plan: Home Plan to discharge in: Greater than 2 days - Advance Directives Does patient have a Living Will: No Does patient have a Durable POA for Healthcare: No - Code Status/Comfort Care Code Status Assessed: Yes (Patient is full code. ) Time Spent Managing Pts Care (In Minutes): 65
--- NOTE | 2018-08-28 12:28 | RAD REPORT ---
EXAM DESCRIPTION: CT - Abdomen Pelvis W Contrast - 08/28/2018 12:05 pm CLINICAL HISTORY: Abdominal pain, GI bleed COMPARISON: CT imaging August 14 TECHNIQUE: Biphasic, helical CT imaging of the abdomen and pelvis was performed following 100 ml non -ionic IV contrast. Oral contrast was given. All CT scans are performed using dose optimization technique as appropriate and may include automated exposure control or mA/KV adjustment according to patient size. FINDINGS: Scarring and/ or atelectasis noted in the lung bases. No pericardial thickening or effusio n. Bilateral breast implants are in place. Fatty infiltration pattern of the liver is present. No focal liver lesions have developed. Nodular li sb capsule contour again noted strongly indicating cirrhosis or diffuse hepatic parenchymal disease. Hepatomegaly is present. Spleen is prominent but without focal abnormality. No acute pancreatitis or acute pancreatic process. Gallbladder is normal size. Several small stones layer in the dependent po rtion in the cystic duct. Active gallbladder process is not suspected. No biliary tree dilatation Symmetric renal function is seen with no hydronephrosis or suspicious renal mass. No urinary bladder abnormality. Uterus and ovaries show no suspicious findings. Stomach cannot be accurately assessed. There is no contrast, fluid or fluid within the lumen. This ac centuates the wall thickness and could mask gastritis findings. Appearance is not substantially diffe rent from August 14. A few prominent but nondilated small bowel loops are present. Moderate stool vo lume throughout the colon. Mobile cecum configuration again noted with the cecum and ileocecal valve in the right upper quadrant between the liver and abdominal wall. Diverticulosis is present. The coli tis pattern seen August 14 has mostly resolved. No abscess. No free air, free fluid or inflammatory stranding. No hernia, mass or bulky lymphadenopathy. No adre nal abnormality. No suspicious bony findings. No acute vascular finding. Paraesophageal and upper abdominal varices noted. IMPRESSION: No bowel obstruction, free air or surgically emergent finding. The colitis pattern seen August 14 has mostly resolved. No abscess, free air or emergent finding. Cholecystitis without evidence for an acute gallbladder or biliary tree process. 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 Liver cirrhosis changes similar to comparison. No acute liver finding.
--- NOTE | 2018-08-28 13:01 | RAD REPORT ---
EXAM DESCRIPTION: US - Abdomen Exam Complete - 08/28/2018 12:32 pm CLINICAL HISTORY: Abdominal pain FINDINGS: The liver has an increased echotexture. The liver has a nodular contour Several gallstones are present. Gallbladder wall is not thickened. Biliary tree is normal caliber The pancreas was not well visualized secondary overlying bowel gas but appears grossly normal. The right kidney measures 11 centimeters with a normal echotexture. The left kidney measures 11 centimeters with a normal echotexture. The spleen measures 13 centimeters. The abdominal aorta and inferior vena cava appear unremarkable IMPRESSION: Increased hepatic echotexture consistent with fatty infiltration. Nodular contour of the liver consistent with cirrhosis. Mild splenomegaly Cholelithiasis without evidence of cholecystitis
[2018-08-28 14:58] VITALS: BMI 30.8
[2018-08-28] MEDS ORDERED: PROPOFOL 200 MG/20 ML VIAL IV ONE (15:46)
[2018-08-28] MEDS ORDERED: LIDOCAINE 1% MPF 5 ML VIAL ONE (15:46)
--- NOTE | 2018-08-28 16:35 | ENDO RPT ---
[address], [address] EGD PROCEDURE REPORT EXAM DATE: 08/28/2018 PATIENT NAME: Yudy Luke MR#: [id number] BIRTHDATE: 1970 ATTENDING: Isidoro Nino Dr STATUS: outpatient [employer] OFFICER: Concha Maldonado RN and Anastacia Paredes INDICATIONS: The patient is a 48 yr old Female here for an EGD due to melenic bleeding, anemia, general abdominal pain, and nausea and vomiting (green bile) PROCEDURE PERFORMED: EGD, diagnostic MEDICATIONS: Per Anesthesia. TOPICAL ANESTHETIC: none CONSENT: The patient understands the risks and benefits of the procedure and understands that these risks include, but are not limited to: sedation, allergic reaction, infection, perforation and/or bleeding. Alternative means of evaluation and treatment include, among others: physical exam, x-rays, and/or surgical intervention. The patient elects to proceed with this endoscopic procedure. DESCRIPTION OF PROCEDURE: During intra-op preparation period all mechanical medical equipment was checked for proper function. Hand hygiene and appropriate measures for infection prevention was taken. Procedure, possible complications, and alternatives including but not limited to the possibility of bleeding, perforation, tear, infection, sepsis, need for surgery, need for blood transfusion, and anesthesia related complications were explained to the patient. After the risks, benefits and alternatives of the procedure were thoroughly explained, Informed consent was verified, confirmed and timeout was successfully executed by the treatment team. The patient was placed in the left lateral position. The patient was anesthetized with topical anesthesia. Through the anesthetized oropharyngeal area, the scope was passed without any difficulty. The [id number] ([id number]) endoscope was introduced through the mouth and advanced to the third portion of the duodenum. Retroflexed views revealed no abnormalities. The gastroscope was then slowly withdrawn and removed. Grade I varices were found in the lower esophagus. Gastropathy was found in the body of the stomach. No active GI bleeding nor stigmata of recent hemorrhage noted. ADVERSE EVENTS: There were no complications. IMPRESSIONS: 1. Three columns of grade I varices in the lower esophagus 2. Portal hypertensive gastropathy in the body of the stomach 3. No active GI bleeding nor stigmata of recent hemorrhage noted RECOMMENDATIONS: REPEAT EXAM: Isidoro Nino Dr eSigned: Isidoro Nino Dr 08/28/2018 4:35 PM cc: CPT CODES: ICD9 CODES: PATIENT NAME: Yudy Luke MR#: [id number]
[2018-08-28] MEDS ORDERED: GOLYTELY 4000 ML PO SCH (17:00)
[2018-08-28] MEDS ORDERED: MAGNESIUM CITRATE 300 ML BOT PO SCH (17:00)
[2018-08-28] MEDS: NA CHLORIDE 0.9% 1,000 ML IV SCH (17:37)
[2018-08-28] MEDS: CIPROFLOXACIN 400mg IV 400 MG/200 ML BAG IV SCH ×2 (18:25→21:00)
[2018-08-28] MEDS: FENTANYL CITR 100 MCG/2 ML IV PRN (18:26)
[2018-08-28] MEDS: METRONIDAZOLE 500mg IVPB 500 MG/100 ML BAG IV SCH (18:26)
[2018-08-28] MEDS: METOCLOPRAMIDE 10 MG/2mL INJ IV SCH ×2 (18:27→23:24)
[2018-08-28 18:33] LABS: Hematocrit 25.8 % (36.0-45.0)
[2018-08-28 21:18] LABS: Hematocrit 26.3 % (36.0-45.0)
[2018-08-28] MEDS: ONDANSETRON 4 MG/2 ML VIAL IV PRN (23:00)
[2018-08-28] MEDS: PANTOPRAZOLE INJ 80 MG in NA CHLORIDE 0.9% 250 ML IV SCH (23:00)
[2018-08-29] MEDS: METRONIDAZOLE 500mg IVPB 500 MG/100 ML BAG IV SCH ×3 (00:10→16:50)
[2018-08-29] MEDS: NA CHLORIDE 0.9% 1,000 ML IV SCH ×3 (00:10→09:20)
[2018-08-29] MEDS ORDERED: ALBUMIN HUMAN 25% 100 ML IV ONE (02:13)
[2018-08-29] MEDS ORDERED: NA CHLORIDE 0.9% 250 ML ONE (02:18)
[2018-08-29] MEDS ORDERED: OCTREOTIDE 500 MCG in NA CHLORIDE 0.9% 500 ML IV SCH ×3 (03:00→17:00)
[2018-08-29] MEDS ORDERED: NA CHLORIDE 0.9% 500 ML ONE (05:59)
[2018-08-29] MEDS ORDERED: OCTREOTIDE ACETATE 500 MCG/ML ONE (05:59)
[2018-08-29] MEDS: LEVOTHYROXINE SODIUM 100 MCG VIAL IV SCH (06:04)
[2018-08-29] MEDS: METOCLOPRAMIDE 10 MG/2mL INJ IV SCH (07:15)
[2018-08-29 07:46] LABS: Absolute Lymphocytes (CBC) 0.3 K/uL (0.7-4.9); Absolute Monocytes 0.7 K/uL (0.1-1.3); Absolute Neutrophil 5.4 K/uL (1.8-8.0); Basophils % 0.2 % (0-1.3); Eosinophils % 0.2 % (0-4.4); Hematocrit 28.3 % (36.0-45.0); Lymphocytes % 4.7 % (15.3-44.8); MCH 35.6 pg (27.0-35.0); MCV 104.7 fL (80-100); MPV 9.2 fL (7.6-11.3); Monocytes % 10.6 % (3.3-12.3)
[2018-08-29] MEDS ORDERED: MAGNESIUM CITRATE 300 ML BOT PO SCH (08:00)
[2018-08-29] MEDS ORDERED: INFLUENZA VACCINE (for 3y+) 0.5 ML DOSE IMVAC ONE (08:00)
[2018-08-29 08:05] LABS: Bilirubin Total 1.2 mg/dL (0.2-1.0); Magnesium 1.8 mg/dL (1.8-2.4); Potassium 4.8 mmol/L (3.5-5.1); Protein, Total 6.5 g/dL (6.4-8.2)
[2018-08-29 08:19] LABS: Blood Morphology Comment NOTED (NOT SEEN); Platelet Estimate DECR; Platelets, Giant FEW; Urine White Blood Cell Casts OK
[2018-08-29 08:20] LABS: Anisocytosis 1+; Hypochromasia 1+; Polychromasia 1+
--- NOTE | 2018-08-29 08:45 | P.PN ---
Subjective Date of Service: 08/28/18 Patient remains hemodynamically unstable. Blood pressure has dropped down from 90's/50's to 70's/40's. We continued a Protonix drip and will go ahead and had a octreotide drip. Will also transfuse 1 unit of packed red blood cells. If blood pressure does not improve may need to give low-dose vasopressors others. Review of Systems 10-point ROS is otherwise unremarkable Physical Examination - Vital Signs Temperature: 98.9 F Blood Pressure: 97/52 Pulse: 102 Respirations: 23 Pulse Ox (%): 96 - Physical Exam General: Alert, In no apparent distress, Oriented x3 Respiratory: Clear to auscultation bilaterally, Normal air movement Cardiovascular: Regular rate/rhythm, Normal S1 S2, No murmurs Gastrointestinal: Normal bowel sounds, Soft and benign, Non-distended, No tenderness - Studies Laboratory Data (last 24 hrs) 08/28/18 11:25: WBC 4.0 L D, Hgb 9.0 L, Hct 26.1 L, Plt Count 100 L D 08/28/18 09:00: Creatinine 0.90 08/28/18 09:00: WBC 5.6 D, Hgb 9.8 L, Hct 28.7 L, Plt Count 135 L D 08/28/18 09:00: Sodium 137, Potassium 4.6, BUN 5 L, Creatinine 0.90, Glucose 91 , Magnesium 1.5 L, Total Bilirubin 0.7, AST 65 H, ALT 25, Alkaline Phosphatase 178 H, Lipase 577 H Medications List Reviewed: Yes Assessment & Plan - Problems (Diagnosis) (1) Ulcer of stomach due to nonsteroidal anti-inflammatory drug (NSAID) in therapeutic use Current Visit: Yes Status: Acute (2) Esophageal varices Current Visit: Yes Status: Acute (3) Upper GI bleeding Current Visit: Yes Status: Acute (4) Alcohol abuse Onset Date: 01/13/17 Current Visit: No Status: Acute (5) Cirrhosis Onset Date: 07/07/17 Current Visit: No Status: Acute Qualifiers: Hepatic cirrhosis type: alcoholic cirrhosis Ascites presence: unspecified Qualified Code(s): K70.30 - Alcoholic cirrhosis of liver without ascites - Plan Plan: 1. Transfuse 1 unit of packed red blood cells 2. Octreotide drip 3. Continue PPI drip 4. Check to see if patient has a coagulopathy. A couple of weeks prior INR was within normal limits 5. Hold NSAIDs 6. GI and DVT prophylaxis - Advance Directives Does patient have a Living Will: No Does patient have a Durable POA for Healthcare: No - Code Status/Comfort Care Code Status Assessed: Yes Code Status: Full Code Critical Care: Yes Time Spent Managing PTS Care (In Minutes): 35
[2018-08-29] MEDS: CIPROFLOXACIN 400mg IV 400 MG/200 ML BAG IV SCH ×2 (09:19→21:11)
[2018-08-29] MEDS: NICOTINE 21 MG/PAT TD SCH (09:20)
[2018-08-29] MEDS: ONDANSETRON 4 MG/2 ML VIAL IV PRN ×2 (10:00→21:23)
--- NOTE | 2018-08-29 10:44 | P.PN ---
Subjective Date of Service: 08/29/18 Primary Care Provider: Dr. Whitaker; GI-Dr. Nino Chief Complaint: Abdominal pain, melena Subjective: Doing well (Patient doing better. Patient to have colonoscopy today.) Physical Examination - Vital Signs Temperature: 98.9 F Blood Pressure: 106/66 Pulse: 101 Respirations: 20 Pulse Ox (%): 96 - Physical Exam General: Alert, In no apparent distress, Oriented x3, Cooperative HEENT: Atraumatic Neck: Supple Respiratory: Clear to auscultation bilaterally, Normal air movement Cardiovascular: Normal pulses, Regular rate/rhythm Gastrointestinal: Normal bowel sounds, Soft and benign, Non-distended, No masses , No rebound, No guarding, Tenderness (Mild pain to the epigastric region) Musculoskeletal: No erythema, No tenderness, No warmth Integumentary: No tenderness/swelling, No erythema, No warmth, No cyanosis Neurological: Normal speech, Normal strength at 5/5 x4 extr, Normal tone, Normal affect - Studies Laboratory Data (last 24 hrs) 08/28/18 11:25: WBC 4.0 L D, Hgb 9.0 L, Hct 26.1 L, Plt Count 100 L D Medications List Reviewed: Yes Assessment & Plan Discharge Plan: Home Plan to discharge in: 72 Hours Physician Review Additional Text: Impression: Nausea, vomiting, abdominal pain, melena, and diarrhea secondary to acute alcoholic pancreatitis complicated with upper GI bleed with history of esophageal varices, GERD, gastroparesis status post EGD showing grade 1 esophageal varices, portal hypertensive gastropathy of stomach with no active bleeding Acute on chronic anemia likely related to GERD and alcohol use status post EGD showing grade 1 esophageal varices, portal hypertensive gastropathy but no active bleeding Elevated lipase secondary to acute alcoholic pancreatitis Alcohol abuse currently in alcohol rehab Hypotension with history of hypertension Diarrhea suspect colitis Thrombocytopenia with mild splenomegaly Hypothyroidism Depression with anxiety Tobacco abuse Plan: Nausea, vomiting, abdominal pain, melena, and diarrhea secondary to acute alcoholic pancreatitis complicated with upper GI bleed with history of esophageal varices, GERD, gastroparesis status post EGD showing grade 1 esophageal varices, portal hypertensive gastropathy of stomach with no active bleeding: Patient remains in ICU. Patient did receive 1 unit of blood last night. Will monitor hemoglobin closely. Patient on Protonix drip. Continue with IV fluids. Patient had EGD showing grade 1 esophageal varices and portal hypertensive gastropathy. No active bleeding was identified. Patient being prepped for colonoscopy today. Will discuss further with GI. If colonoscopy negative patient will likely require small bowel series to further assess. Will continue monitor closely. Once blood pressure stabilize then will consider sending the patient to the floor. Continue IV antibiotic therapy at this time. Acute on chronic anemia likely related to GERD and alcohol use status post EGD showing grade 1 esophageal varices, portal hypertensive gastropathy but no active bleeding: Will monitor hemoglobin closely. Patient did receive 1 unit of blood last night. Will monitor closely. Elevated lipase secondary to acute alcoholic pancreatitis: Will keep the patient NPO. Will recheck lipase today. Alcoholic liver cirrhosis with fatty liver: Continue to monitor liver function closely. Will discuss with GI. Continue with above plan of care. Alcohol abuse currently in alcohol rehab: Currently in outpatient alcohol rehab. Will monitor for alcohol withdrawal Hypotension with history of hypertension: Patient remained stable. Will continue to monitor and IV fluids. Thrombocytopenia with mild splenomegaly: Will continue monitor platelet count. Will hold anti coagulation therapy or DVT prophylaxis Diarrhea suspect colitis: Will check stool for c. diff. Will continue with IV antibiotic therapy. Patient recently hospitalized for colitis. CT scan shows improvement from prior scan Hypothyroidism: Will start IV levothyroxine. Depression with anxiety: Will obtain home meds. Tobacco abuse: Will provide Nicotine patch. Time Spent Managing Pts Care (In Minutes): 55
[2018-08-29] MEDS: NACHLORIDE 0.45% 1,000 ML IV SCH ×2 (11:44→19:00)
[2018-08-29] MEDS: PANTOPRAZOLE INJ 80 MG in NA CHLORIDE 0.9% 250 ML IV SCH (11:45)
[2018-08-29] MEDS: FENTANYL CITR 100 MCG/2 ML IV PRN (11:47)
[2018-08-29] MEDS ORDERED: FENTANYL CITR 100 MCG/2 ML IV PRN (12:28)
[2018-08-29] MEDS ORDERED: Ringers Lactate 1,000 ML IV ONE (13:32)
[2018-08-29] MEDS ORDERED: PROPOFOL 200 MG/20 ML VIAL IV ONE (13:36)
[2018-08-29] MEDS ORDERED: MIDAZOLAM HCL 2 MG/2 ML INJ ONE (13:36)
--- NOTE | 2018-08-29 14:16 | ENDO RPT ---
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 ESTIMATED BLOOD LOSS: None CONSENT: The patient understands the risks and benefits of the procedure and understands that these risks include, but are not limited to: sedation, allergic reaction, infection, perforation and/or bleeding. Alternative means of evaluation and treatment include, among others: physical exam, x-rays, and/or surgical intervention. The patient elects to proceed with this endoscopic procedure. DESCRIPTION OF PROCEDURE: During intra-op preparation period all mechanical medical equipment was checked for proper function. Hand hygiene and appropriate measures for infection prevention was taken. Procedure, possible complications, alternatives including, but not limited to possibility of bleeding, perforation, tear, infection, sepsis, need for surgery, need for blood transfusion, were explained to the patient. After the risks, benefits and alternatives of the procedure were thoroughly explained, Informed consent was verified, confirmed and timeout was successfully executed by the treatment team. The patient was placed in the left lateral position. A digital rectal exam was performed and revealed no abnormalities of the rectum. After appropriate level of anesthesia, the scope was passed. The [id number] ([id number]) endoscope was introduced through the anus and advanced to the cecum, which was identified by both the appendix and ileocecal valve. The quality of the prep was good. The instrument was then slowly withdrawn as the colon was fully examined. Scope withdrawal time was 7 minutes. COLON FINDINGS: Diverticula was found throughout the entire examined colon. The opening was small. A pedunculated polyp measuring 7 mm in size was found in the sigmoid colon. Large internal hemorrhoids were found. Retroflexed views revealed large hemorrhoids. The scope was then completely withdrawn from the patient and the procedure terminated. ADVERSE EVENTS: There were no complications. IMPRESSIONS: 1. Diverticula throughout the entire examined colon 2. 7 mm pedunculated polyp in the sigmoid colon (not removed in setting of acute GI bleeding) 3. Intubation to cecum 4. Large internal hemorrhoids RECOMMENDATIONS: 1. await biopsy results 2. avoid NSAIDS for 2 weeks RECALL: Return in 1 month(s) for Colonoscopy. Isidoro Nino Dr eSigned: Isidoro Nino Dr 08/29/2018 2:09 PM cc: CPT CODES: ICD9 CODES: PATIENT NAME: Yudy LukeMarcellus MR#: [id number]
[2018-08-29] MEDS ORDERED: LORazepam 2 MG/ML VIAL IV PRN (15:10)
--- NOTE | 2018-08-29 16:30 | RAD REPORT ---
EXAM DESCRIPTION: RAD - Small Bowel Series - 08/29/2018 4:08 pm CLINICAL HISTORY: Abdominal pain/ diarrhea COMPARISON: None. FINDINGS: Contrast enters the colon by approximately 1 hour 10 minutes. The mucosal folds of the small bowel appear normal. No permanent filling defects, obstructing or constricting lesions are seen. The small bowel caliber is normal. IMPRESSION: Unremarkable small bowel series.
[2018-08-29] MEDS ORDERED: HYDROMORPHONE HCL 1 MG/ML INJ IV PRN (16:36)
[2018-08-29] MEDS: GABAPENTIN 100 MG CAP PO SCH ×2 (16:50→21:10)
[2018-08-29 18:09] LABS: RBC Red Blood Cell Count 2.56 M/uL (3.86-4.86)
[2018-08-29 18:10] LABS: Absolute Lymphocytes (CBC) 0.6 K/uL (0.7-4.9); Absolute Monocytes 0.5 K/uL (0.1-1.3); Absolute Neutrophil 5.5 K/uL (1.8-8.0); Basophils % 0.4 % (0-1.3); Eosinophils % 0.8 % (0-4.4); Hematocrit 26.5 % (36.0-45.0); Lymphocytes % 8.6 % (15.3-44.8); MCH 35.8 pg (27.0-35.0); MCV 104.1 fL (80-100); MPV 9.6 fL (7.6-11.3); Monocytes % 7.7 % (3.3-12.3); RBC Red Blood Cell Count 2.55 M/uL (3.86-4.86)
[2018-08-29 18:24] LABS: Protime INR 1.23
[2018-08-29 18:26] LABS: Albumin 2.9 g/dL (3.4-5.0); Magnesium 1.9 mg/dL (1.8-2.4); Potassium 4.4 mmol/L (3.5-5.1); Protein, Total 6.4 g/dL (6.4-8.2)
--- NOTE | 2018-08-29 18:26 | RAD REPORT ---
EXAM DESCRIPTION: RAD - Chest Single View - 08/29/2018 6:16 pm CLINICAL HISTORY: Device placement PICC line placement COMPARISON: August 13, 2018 FINDINGS: A PICC line has been inserted with its tip 15 millimeters into the right atrium The lungs are hazy. The heart is normal size. IMPRESSION: A PICC line has been inserted with its tip 15 millimeters into the right atrium Lung bases are hazy probably secondary to overlying soft tissue. Atelectasis is another consideration
[2018-08-30] MEDS: METRONIDAZOLE 500mg IVPB 500 MG/100 ML BAG IV SCH ×2 (02:08→08:09)
[2018-08-30] MEDS: NACHLORIDE 0.45% 1,000 ML IV SCH (02:08)
[2018-08-30 06:02] LABS: Absolute Lymphocytes (CBC) 1.3 K/uL (0.7-4.9); Absolute Monocytes 0.8 K/uL (0.1-1.3); Absolute Neutrophil 4.6 K/uL (1.8-8.0); Basophils % 0.7 % (0-1.3); Eosinophils % 1.7 % (0-4.4); Hematocrit 28.8 % (36.0-45.0); Lymphocytes % 18.6 % (15.3-44.8); MCH 36.1 pg (27.0-35.0); MCV 104.7 fL (80-100); MPV 9.5 fL (7.6-11.3); Monocytes % 11.2 % (3.3-12.3); RBC Red Blood Cell Count 2.76 M/uL (3.86-4.86)
[2018-08-30] MEDS: LEVOTHYROXINE SODIUM 100 MCG VIAL IV SCH (06:07)
[2018-08-30 06:33] LABS: Albumin 2.9 g/dL (3.4-5.0); Bilirubin Total 0.9 mg/dL (0.2-1.0); Magnesium 1.9 mg/dL (1.8-2.4); Potassium 3.9 mmol/L (3.5-5.1)
[2018-08-30] MEDS: DESVENLAFAXINE SUCCINATE 50 MG ER TAB PO SCH (08:08)
[2018-08-30] MEDS: GABAPENTIN 100 MG CAP PO SCH ×3 (08:08→21:31)
[2018-08-30] MEDS: METOCLOPRAMIDE 5 MG TAB PO SCH ×4 (08:08→21:30)
[2018-08-30] MEDS: NICOTINE 21 MG/PAT TD SCH (08:08)
[2018-08-30] MEDS: CIPROFLOXACIN 400mg IV 400 MG/200 ML BAG IV SCH (08:09)
[2018-08-30] MEDS ORDERED: THIAMINE HCL 100 MG TABLET PO SCH (09:00)
[2018-08-30] MEDS ORDERED: FOLIC ACID 1 MG TABLET PO SCH (09:00)
[2018-08-30 09:51] VITALS: O2SAT 99
[2018-08-30] MEDS ORDERED: SPIRONOLACTONE 25 MG TABLET PO ONE (10:24)
[2018-08-30] MEDS ORDERED: SODIUM CHLORIDE 0.9% 10ML INJ IV PRN (10:25)
[2018-08-30] MEDS ORDERED: METOCLOPRAMIDE 10 MG/2mL INJ IV SCH (12:06)
--- NOTE | 2018-08-30 12:13 | P.PN ---
Subjective Date of Service: 08/30/18 Primary Care Provider: Dr. Whitaker; GI-Dr. Nino Chief Complaint: Abdominal pain, melena Subjective: Improving (She feels much better, in much better mood & happy. No further melena since admission though she did have heme positive stool on admission. RNs have not seen melena in ICU since admission. EGD and colonoscopy largely unremarkable for bleeding source(s). Small bowel series negative.) Review of Systems 10-point ROS is otherwise unremarkable General: Weakness (Improved) Physical Examination - Vital Signs Temperature: 98.7 F Blood Pressure: 119/79 Pulse: 93 Respirations: 20 Pulse Ox (%): 94 - Physical Exam General: Alert, In no apparent distress, Oriented x3, Cooperative HEENT: Atraumatic, Normocephalic, PERRLA, EOMI Neck: Supple Respiratory: Normal air movement Cardiovascular: Normal pulses Gastrointestinal: Soft and benign, No tenderness, No rebound, No guarding Neurological: Normal speech, Normal strength at 5/5 x4 extr - Studies Medications List Reviewed: Yes Assessment And Plan - Current Problems (Diagnosis) (1) Melena Current Visit: Yes Status: Acute (2) Esophageal varices Current Visit: Yes Status: Acute (3) Upper GI bleeding Current Visit: Yes Status: Acute (4) Gastritis Onset Date: 01/13/17 Current Visit: No Status: Acute (5) Generalized abdominal pain Onset Date: 07/07/17 Current Visit: No Status: Acute - Plan REC: 1) pillcam as outpatient 2) monitor H&H and transfuse prn 3) continue Thiamine / folate 4) rehab facility on discharge Physician Review Additional Text: Impression: Nausea, vomiting, abdominal pain, melena, and diarrhea secondary to acute alcoholic pancreatitis complicated with upper GI bleed with history of esophageal varices, GERD, gastroparesis status post EGD showing grade 1 esophageal varices, portal hypertensive gastropathy of stomach with no active bleeding Acute on chronic anemia likely related to GERD and alcohol use status post EGD showing grade 1 esophageal varices, portal hypertensive gastropathy but no active bleeding Elevated lipase secondary to acute alcoholic pancreatitis Alcohol abuse currently in alcohol rehab Hypotension with history of hypertension Diarrhea suspect colitis Thrombocytopenia with mild splenomegaly Hypothyroidism Depression with anxiety Tobacco abuse Plan: Nausea, vomiting, abdominal pain, melena, and diarrhea secondary to acute alcoholic pancreatitis complicated with upper GI bleed with history of esophageal varices, GERD, gastroparesis status post EGD showing grade 1 esophageal varices, portal hypertensive gastropathy of stomach with no active bleeding: Patient remains in ICU. Patient did receive 1 unit of blood last night. Will monitor hemoglobin closely. Patient on Protonix drip. Continue with IV fluids. Patient had EGD showing grade 1 esophageal varices and portal hypertensive gastropathy. No active bleeding was identified. Patient being prepped for colonoscopy today. Will discuss further with GI. If colonoscopy negative patient will likely require small bowel series to further assess. Will continue monitor closely. Once blood pressure stabilize then will consider sending the patient to the floor. Continue IV antibiotic therapy at this time. Acute on chronic anemia likely related to GERD and alcohol use status post EGD showing grade 1 esophageal varices, portal hypertensive gastropathy but no active bleeding: Will monitor hemoglobin closely. Patient did receive 1 unit of blood last night. Will monitor closely. Elevated lipase secondary to acute alcoholic pancreatitis: Will keep the patient NPO. Will recheck lipase today. Alcoholic liver cirrhosis with fatty liver: Continue to monitor liver function closely. Will discuss with GI. Continue with above plan of care. Alcohol abuse currently in alcohol rehab: Currently in outpatient alcohol rehab. Will monitor for alcohol withdrawal Hypotension with history of hypertension: Patient remained stable. Will continue to monitor and IV fluids. Thrombocytopenia with mild splenomegaly: Will continue monitor platelet count. Will hold anti coagulation therapy or DVT prophylaxis Diarrhea suspect colitis: Will check stool for c. diff. Will continue with IV antibiotic therapy. Patient recently hospitalized for colitis. CT scan shows improvement from prior scan Hypothyroidism: Will start IV levothyroxine. Depression with anxiety: Will obtain home meds. Tobacco abuse: Will provide Nicotine patch.
[2018-08-30] MEDS ORDERED: ONDANSETRON 4 MG/2 ML VIAL IV PRN (13:38)
--- NOTE | 2018-08-30 15:06 | P.PN ---
Subjective Date of Service: 08/30/18 (Hospitalist note) Primary Care Provider: Dr. Whitaker; GI-Dr. Nino Chief Complaint: Abdominal pain, melena Subjective: Improving (Better no my history of melenic stools hemodynamically stable status post EGD and colon) Review of Systems Unremarkable Physical Examination - Vital Signs Temperature: 98.7 F Blood Pressure: 119/79 Pulse: 93 Respirations: 20 Pulse Ox (%): 94 - Physical Exam General: Alert, Oriented x3 Neck: Supple Respiratory: Clear to auscultation bilaterally Cardiovascular: No edema, Regular rate/rhythm - Studies Medications List Reviewed: Yes Assessment & Plan - Problems (Diagnosis) (1) Melena Current Visit: Yes Status: Acute Plan: Patient is 48 years of age admitted with melenic stools she has a history of alcoholic liver disease was in a rehab for alcoholic deep toxication patient's hemoglobin vital signs all stable patient is stable to be transferred to the floor possible discharge tomorrow medication reviewed labs reviewed Physician Review Additional Text: Impression: Nausea, vomiting, abdominal pain, melena, and diarrhea secondary to acute alcoholic pancreatitis complicated with upper GI bleed with history of esophageal varices, GERD, gastroparesis status post EGD showing grade 1 esophageal varices, portal hypertensive gastropathy of stomach with no active bleeding Acute on chronic anemia likely related to GERD and alcohol use status post EGD showing grade 1 esophageal varices, portal hypertensive gastropathy but no active bleeding Elevated lipase secondary to acute alcoholic pancreatitis Alcohol abuse currently in alcohol rehab Hypotension with history of hypertension Diarrhea suspect colitis Thrombocytopenia with mild splenomegaly Hypothyroidism Depression with anxiety Tobacco abuse Plan: Nausea, vomiting, abdominal pain, melena, and diarrhea secondary to acute alcoholic pancreatitis complicated with upper GI bleed with history of esophageal varices, GERD, gastroparesis status post EGD showing grade 1 esophageal varices, portal hypertensive gastropathy of stomach with no active bleeding: Patient remains in ICU. Patient did receive 1 unit of blood last night. Will monitor hemoglobin closely. Patient on Protonix drip. Continue with IV fluids. Patient had EGD showing grade 1 esophageal varices and portal hypertensive gastropathy. No active bleeding was identified. Patient being prepped for colonoscopy today. Will discuss further with GI. If colonoscopy negative patient will likely require small bowel series to further assess. Will continue monitor closely. Once blood pressure stabilize then will consider sending the patient to the floor. Continue IV antibiotic therapy at this time. Acute on chronic anemia likely related to GERD and alcohol use status post EGD showing grade 1 esophageal varices, portal hypertensive gastropathy but no active bleeding: Will monitor hemoglobin closely. Patient did receive 1 unit of blood last night. Will monitor closely. Elevated lipase secondary to acute alcoholic pancreatitis: Will keep the patient NPO. Will recheck lipase today. Alcoholic liver cirrhosis with fatty liver: Continue to monitor liver function closely. Will discuss with GI. Continue with above plan of care. Alcohol abuse currently in alcohol rehab: Currently in outpatient alcohol rehab. Will monitor for alcohol withdrawal Hypotension with history of hypertension: Patient remained stable. Will continue to monitor and IV fluids. Thrombocytopenia with mild splenomegaly: Will continue monitor platelet count. Will hold anti coagulation therapy or DVT prophylaxis Diarrhea suspect colitis: Will check stool for c. diff. Will continue with IV antibiotic therapy. Patient recently hospitalized for colitis. CT scan shows improvement from prior scan Hypothyroidism: Will start IV levothyroxine. Depression with anxiety: Will obtain home meds. Tobacco abuse: Will provide Nicotine patch.
[2018-08-31 05:26] LABS: Absolute Lymphocytes (CBC) 1.6 K/uL (0.7-4.9); Absolute Monocytes 0.7 K/uL (0.1-1.3); Absolute Neutrophil 2.9 K/uL (1.8-8.0); Basophils % 1.3 % (0-1.3); Eosinophils % 2.3 % (0-4.4); Hematocrit 26.2 % (36.0-45.0); Lymphocytes % 29.6 % (15.3-44.8); MCH 35.5 pg (27.0-35.0); MPV 9.3 fL (7.6-11.3); Monocytes % 12.6 % (3.3-12.3)
[2018-08-31 05:43] LABS: Albumin 2.4 g/dL (3.4-5.0); Bilirubin Total 0.8 mg/dL (0.2-1.0); Magnesium 1.8 mg/dL (1.8-2.4); Potassium 3.8 mmol/L (3.5-5.1)
[2018-08-31] MEDS ORDERED: POTASSIUM 25 MEQ EFFERV TAB PO ONE (06:05)
[2018-08-31] MEDS ORDERED: MAGNESIUM SULFATE 1 gm IVPB 1 GM/100 ML BAG IV ONE (06:05)
[2018-08-31] MEDS: METOCLOPRAMIDE 5 MG TAB PO SCH ×2 (08:34→12:49)
[2018-08-31] MEDS: GABAPENTIN 100 MG CAP PO SCH ×2 (08:35→14:45)
[2018-08-31] MEDS: NICOTINE 21 MG/PAT TD SCH (08:35)
[2018-08-31] MEDS ORDERED: PANTOPRAZOLE 40 MG INJ IVP SCH (09:00)
[2018-08-31] MEDS: DESVENLAFAXINE SUCCINATE 50 MG ER TAB PO SCH (12:49)
[2018-08-31 12:59] VITALS: BP 139/90; TEMP 97.9
--- NOTE | 2018-08-31 16:13 | P.DS ---
Admission Date: 08/28/18 Discharge Date: 08/31/18 Primary Care Provider: Dr. Whitaker; GI-Dr. Nino Disposition: ROUTINE DISCHARGE Discharge Condition: GOOD Reason for Admission: Abdominal pain, melena Consultations: Dr Nino Procedures: Colonoscopy - Problems (1) Melena Current Visit: Yes Status: Acute (2) Esophageal varices Current Visit: Yes Status: Acute (3) Alcohol abuse Onset Date: 01/13/17 Current Visit: No Status: Acute (4) Cirrhosis Onset Date: 07/07/17 Current Visit: No Status: Acute Qualifiers: Hepatic cirrhosis type: alcoholic cirrhosis Ascites presence: unspecified Qualified Code(s): K70.30 - Alcoholic cirrhosis of liver without ascites (5) Hepatic encephalopathy Onset Date: 07/07/17 Current Visit: No Status: Acute (6) Hypothyroidism Onset Date: 07/07/17 Current Visit: No Status: Chronic Qualifiers: Hypothyroidism type: acquired Qualified Code(s): E03.9 - Hypothyroidism, unspecified Brief History of Present Illness: 48-year-old female presented to the emergency room with abdominal pain and melena. Patient presented with abdominal pain, melena. Pain was mainly to the epigastric region. She also reported some nausea, chills, vomiting. Patient recently hospitalized for colitis, gastroparesis, GERD. At that time she had a EGD and colonoscopy done. Gastric study was also done showing gastroparesis. EGD showed esophageal varices and GERD. Colonoscopy showed colon polyp. Since the last discharge, the patient went into alcohol rehab. Patient has not been drinking since that time. Over the last day she has had increasing pain. She was given Advil. Patient has other medical conditions include hypertension, depression, hypothyroidism. Today pain was worse with increasing nausea and vomiting. She was seen in the emergency room for further evaluation. Initially blood pressure elevated at 153/104. Then blood pressure dropped to 89 /51. Initial hemoglobin 9.8, platelet count 135. Sodium 137, potassium 4.6, magnesium low. Lipase pending. AST slightly elevated. Patient had lab done 2 days ago. At that time magnesium was low at 1.1, lipase 114, hemoglobin 8.7. Ammonia level was elevated at 265. Patient given IV fluid bolus. Patient started on IV Protonix in the emergency room. Repeat blood pressure 92/51. Patient appears stable. Patient will go to the ICU. When I saw the patient the ER, she appeared stable. Patient was alert and oriented x3. Pain improved. Patient still reported some abdominal cramping. Melena also improved. Patient reports recent diarrhea. Patient was recently seen in evaluated with C diff negative. Hospital Course: Overall during the hospital stay patient remained stable Patient was initially admitted to the hospital for melena. Patient was seen by GI here in the hospital had a EGD and colonoscopy done. Patient was found to have esophageal varices, that were not acutely bleeding. No ulcers were noted as well. Colonoscopy was pretty benign as well. nonbleeding. The patient was started on IV Protonix along with IV fluids here in the hospital. Has resolution of her melena. For GI recommended patient be placed on p.o. Protonix and be continued with her hepatic cirrhosis medication. Patient then was discharged home under stable condition. Patient has long-term history of alcohol abuse and was educated extensively and was discharged to alcohol abuse rehab program. Vital Signs/Physical Exam: Temp Pulse Resp BP Pulse Ox 97.9 F 92 H 20 139/90 97 08/31/18 12:00 08/31/18 12:00 08/31/18 12:00 08/31/18 12:00 08/31/18 12:00 General: Alert, In no apparent distress HEENT: Atraumatic, PERRLA, EOMI Neck: Supple, JVD not distended Respiratory: Clear to auscultation bilaterally, Normal air movement Cardiovascular: Regular rate/rhythm, Normal S1 S2 Gastrointestinal: Normal bowel sounds, No tenderness Musculoskeletal: No tenderness Integumentary: No rashes Neurological: Normal speech, Normal tone, Normal affect Lymphatics: No axilla or inguinal lymphadenopathy Laboratory Data at Discharge: WBC 5.3 K/uL (4.3-10.9) D 08/31/18 04:45 Hgb 8.9 g/dL (12.0-15.0) L 08/31/18 04:45 Hct 26.2 % (36.0-45.0) L 08/31/18 04:45 Plt Count 100 K/uL (152-406) L 08/31/18 04:45 PT 14.5 SECONDS (9.5-12.5) H 08/29/18 17:55 INR 1.23 08/29/18 17:55 APTT 33.6 SECONDS (24.3-36.9) 08/29/18 17:55 Sodium 146 mmol/L (136-145) H 08/31/18 04:45 Potassium 3.8 mmol/L (3.5-5.1) 08/31/18 04:45 BUN 3 mg/dL (7-18) L 08/31/18 04:45 Creatinine 0.70 mg/dL (0.55-1.3) 08/31/18 04:45 Glucose 104 mg/dL (74-106) 08/31/18 04:45 Phosphorus 3.0 mg/dL (2.5-4.9) 08/29/18 17:55 Magnesium 1.9 mg/dL (1.8-2.4) 08/31/18 10:20 Total Bilirubin 0.8 mg/dL (0.2-1.0) 08/31/18 04:45 AST 37 U/L (15-37) 08/31/18 04:45 ALT 16 U/L (12-78) 08/31/18 04:45 Alkaline Phosphatase 110 U/L (45-117) 08/31/18 04:45 Lipase 164 U/L (73-393) 08/31/18 04:45 Home Medications: Lactobacillus Acidophilus [Acidophilus Lactobacilli] 1 each PO DAILY #30 Levothyroxine Sodium [Synthroid] 175 mcg PO DAILY #30 tablet 07/11/17 Montelukast [Singulair*] 10 mg PO DAILY #30 tab 07/11/17 Desvenlafaxine Succinate [Pristiq] 50 mg PO DAILY 08/14/18 Cholestyramine/Asp [Questran Light*] 8 gm PO BEDTIME #30 packet 08/19/18 Metoclopramide HCl [Reglan] 10 mg PO 30 MIN BEFORE HS #30 tablet 08/19/18 Pantoprazole [Protonix Tab*] 40 mg PO DAILYAC #30 tab 08/19/18 Ondansetron HCl [Zofran] 8 mg PO Q12HP PRN 08/28/18 Diet: Regular Activity: Ad zion Followup: Isidoro Nino MD [Primary Care Provider] - 1-2 Days
== END 2018-08-31 15:20 | disposition home or self-care (01) | DRG 377 ==
LOC: ER 08:32 → ERHOLD 11:46 → 3RD-ICU 14:10 → 2ND 08-30 15:35
PROVIDERS: ADMIT Family Medicine; ATTEND Family Medicine
PROC: 0DJ08ZZ Inspection of Upper Intestinal Tract, Via Natural or Artificial Opening Endoscopic (ICD-10-PCS; 2018-08-28)
PROC: 30233N1 Transfusion of Nonautologous Red Blood Cells into Peripheral Vein, Percutaneous Approach (ICD-10-PCS; 2018-08-29)
PROC: 02HV33Z Insertion of Infusion Device into Superior Vena Cava, Percutaneous Approach (ICD-10-PCS; 2018-08-29)
PROC: B548ZZA Ultrasonography of Superior Vena Cava, Guidance (ICD-10-PCS; 2018-08-29)
PROC: 0DJD8ZZ Inspection of Lower Intestinal Tract, Via Natural or Artificial Opening Endoscopic (ICD-10-PCS; principal; 2018-08-29 13:30)
DX: K92.1 Melena (principal); K85.20 Alcohol induced acute pancreatitis without necrosis or infection; K76.6 Portal hypertension; I85.10 Secondary esophageal varices without bleeding; K70.30 Alcoholic cirrhosis of liver without ascites; E03.9 Hypothyroidism, unspecified; Z88.8 Allergy status to other drugs, medicaments and biological substances; K57.30 Diverticulosis of large intestine without perforation or abscess without bleeding; K63.5 Polyp of colon; K64.8 Other hemorrhoids; F32.9 Major depressive disorder, single episode, unspecified; F17.210 Nicotine dependence, cigarettes, uncomplicated; I95.9 Hypotension, unspecified; F41.9 Anxiety disorder, unspecified; F10.11 Alcohol abuse, in remission; K31.89 Other diseases of stomach and duodenum; K21.9 Gastro-esophageal reflux disease without esophagitis; K31.84 Gastroparesis; D69.6 Thrombocytopenia, unspecified; K71.10 Toxic liver disease with hepatic necrosis, without coma
CPT/HCPCS: 36415; 36430; 71045; 74177; 74250; 76700; 80048; 80053; 80076; 81003; 81025; 82140; 82274; 82962; 83010; 83615; 83690; 83735; 84100; 85014; 85018; 85025; 85044; 85384; 85610; 85730; 86850; 86900; 86901; 87040; 87045; 87046; 87177; 87209; 87493; 97163; 99285; C9113; G0008; J0744; J1170; J2175; J2250; J2354; J2405; J2704; J2765; J3010; J3475; J7030; P9016; P9047; Q2035; Q9967

== ENCOUNTER 2019-05-15 14:07 | Inpatient (IN) | payer BC ==
[2019-05-15] MEDS ORDERED: FENTANYL CITR 100 MCG/2 ML ONE (15:12)
[2019-05-15] MEDS ORDERED: NA CHLORIDE 0.9% 1,000 ML ONE (15:13)
[2019-05-15] MEDS ORDERED: ONDANSETRON 4 MG/2 ML VIAL ONE ×3 (15:13→20:24)
[2019-05-15 15:54] LABS: Absolute Lymphocytes (CBC) 0.6 K/uL (0.7-4.9); Basophils % 0.5 % (0-1.3); Lymphocytes % 13.4 % (15.3-44.8); RBC Red Blood Cell Count 3.39 M/uL (3.86-4.86)
[2019-05-15 16:01] LABS: Potassium 3.4 mmol/L (3.5-5.1)
[2019-05-15 16:18] LABS: MPV 9.6 fL (7.6-11.3)
--- NOTE | 2019-05-15 16:25 | RAD REPORT ---
EXAM DESCRIPTION: CT - Head C Spine Dipak Dang - 05/15/2019 3:55 pm CLINICAL HISTORY: Head and neck injury with chest and abdominal pain status post fall. Head and neck pain . TECHNIQUE: Computed axial tomography of the head and cervical spine was obtained Computed axial tomography of the chest, abdomen and pelvis was obtained. 100 cc Isovue-300 was given intravenously coronal and sagittal reconstruction was performed. All CT scans are performed using dose optimization technique as appropriate and may include automated exposure control or mA/KV adjustment according to patient size. COMPARISON: CT abdomen August 2018 FINDINGS: An intracranial bleed is not seen. The ventricles are normal in caliber. An extra-axial fl uid collection is not noted. A cervical fracture is not seen. No dislocation is seen. There is mild posterior subluxation of C4 on C5 A mediastinal hematoma is not noted. A pleural effusion is not present. Mild right lower lobe opacity . The left breast implant rupture Small to moderate ascites Recanalization umbilical vein The liver, spleen, pancreas, adrenals, kidneys and bladder do not demonstrate a traumatic injury. A cirrhotic liver with hepatomegaly and fatty infiltration..Cholelithiasis. IMPRESSION: 1. No acute intracranial abnormality is seen 2. A cervical fracture is not visualized. Mild posterior subluxation of C4 on C5. If the patient cont inues have symptoms to suggest intracranial/spinal cord/ ligamentous pathology then MRI would be tadeo mmended. 3. Left breast implant rupture 4. Cirrhosis with small to moderate ascites 5. Mild right lower lobe opacity atelectasis or pneumonia
[2019-05-15 16:27] LABS: Albumin 2.9 g/dL (3.4-5.0); Bilirubin Direct 4.4 mg/dL (0-0.2)
[2019-05-15 16:31] LABS: Protime INR 1.28
[2019-05-15 16:32] LABS: Bilirubin Total 5.6 mg/dL (0.2-1.0)
[2019-05-15 16:44] LABS: Blood Morphology Comment NOTED (NOT SEEN); Macrocytosis 1+; Platelet Estimate DECR; Urine White Blood Cell Casts OK
[2019-05-15] MEDS ORDERED: THIAMINE 200 MG/2 ML INJ ONE (16:50)
[2019-05-15] MEDS ORDERED: NA CHLORIDE 0.9% 1,000 ML with FOLIC ACID 1 MG, THIAMINE HCL 100 MG, MULTIVITAMINS INJ ... IV ONE ×4 (17:00)
[2019-05-15] MEDS ORDERED: PANTOPRAZOLE 40 MG INJ ONE (17:56)
--- NOTE | 2019-05-15 18:49 | RAD REPORT ---
EXAM DESCRIPTION: US - Abdomen Exam Limited - 05/15/2019 6:01 pm CLINICAL HISTORY: Abdominal pain. FINDINGS: The gallbladder wall is not thickened. Several gallstones. The biliary tree is normal caliber. IMPRESSION: Cholelithiasis without evidence cholecystitis.
--- NOTE | 2019-05-15 19:11 | RAD REPORT ---
EXAM DESCRIPTION: CT - Facial Bones W/ Mpr - 05/15/2019 6:34 pm CLINICAL HISTORY: Facial injury status post fall COMPARISON: None TECHNIQUE: Computed axial tomography of the face was obtained. Coronal and sagittal reconstruction w as performed. All CT scans are performed using dose optimization technique as appropriate and may include automated exposure control or mA/KV adjustment according to patient size. FINDINGS: A fracture is not seen. A TMJ dislocation is not noted. The globes are intact. Fluid within the sinuses is not seen. IMPRESSION: Negative for a facial fracture.
--- NOTE | 2019-05-15 19:35 | ER ---
Nurse's Notes [facility] Name: Yudy Luke Age: 48 yrs Sex: Female : 1970 Arrival Date: 05/15/2019 Time: 14:09 Bed 20 Private MD: Diagnosis: Alcoholic cirrhosis of liver with ascites;Fall on same level from slipping, tripping and stumbling;Dehydration;Alcohol abuse with unspecified alcohol-induced disorder Presentation: 05/15 14:11 Presenting complaint: Patient states: "I fell and hit my head on the window sill and it aj1 busted my left breast, I have implants, and now i have fluid building up in my abdomen and I've been throwing up" Reports that she fell one week ago today. Reports that she has been having black stools for the past 2 days. Bruising noted to face. Care prior to arrival: None. Mechanism of Injury: Fall from standing position. Trauma event details: Injury occurred in the [facility]. 14:11 Acuity: FABY 3 aj1 14:11 Method Of Arrival: Wheelchair aj1 14:16 Transition of care: patient was not received from another setting of care. Onset of aj1 symptoms was May 08, 2019. Risk Assessment: Do you want to hurt yourself or someone else? Patient reports no desire to harm self or others. Initial Sepsis Screen: Does the patient meet any 2 criteria? HR > 90 bpm. Does the patient have a suspected source of infection? No. Patient's initial sepsis screen is negative. Triage Assessment: 14:17 General: Appears uncomfortable, Behavior is calm, cooperative, appropriate for age. aj1 Pain: Complains of pain in abdomen Pain currently is 10 out of 10 on a pain scale. Neuro: Level of Consciousness is awake, alert, obeys commands. Cardiovascular: Patient's skin is warm and dry. Respiratory: Airway is patent Respiratory effort is even, unlabored, Respiratory pattern is regular, symmetrical. 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 LMP N/A - Post-menopause aj1 Trauma Activation: Not Applicable Physician: ED Physician; Name: ; Notified At: ; Arrived At: Physician: General Surgeon; Name: ; Notified At: ; Arrived At: Physician: Radiology; Name: ; Notified At: ; Arrived At: Physician: Respiratory; Name: ; Notified At: ; Arrived At: Physician: Lab; Name: ; Notified At: ; Arrived At: Historical: - Allergies: 14:17 Phenergan; aj1 14:17 Wellbutrin; aj1 - Home Meds: 17:34 Bystolic 20 mg Oral tab 1 tab once daily [Active]; levothyroxine 125 mcg tab 1 tab once em daily [Active]; topiramate 50 mg oral tab 1 tab 2 times per day [Active]; Protonix 40 mg Oral TbEC 1 tab once daily [Active]; Folic Acid Oral [Active]; Pristiq 100 mg oral Tb24 1 tab once daily [Active]; - PMHx: 14:17 ADD/ADHD; allergies; Depression; esophageal varisces; Gastroenteritis; GERD; aj1 Hypertension; Hypothyroidism; - Immunization history: Last tetanus immunization: < 5 years ago. - Social history:: Smoking status: Patient/guardian denies using tobacco. - Ebola Screening: : Patient denies travel to an Ebola-affected area in the 21 days before illness onset. Screenin:11 Abuse screen: Denies threats or abuse. Denies injuries from another. Tuberculosis aj1 screening: No symptoms or risk factors identified. 19:00 Nutritional screening: No deficits noted. Fall Risk None identified. ea Primary Survey: 14:11 NO uncontrolled hemorrhage observed. A: The patient is alert. Airway: patent. aj1 Breathing/Chest: Respiratory pattern: regular, Respiratory effort: spontaneous, unlabored. Circulation: Skin color: pink. Disability Alert. 14:30 Exposure/Environment: A warming method has been applied: A warm blanket has been aa5 provided to the patient. Reassessment Airway Airway Patent Breathing/Chest Respiratory pattern Regular Respiratory effort Spontaneous Unlabored Chest inspection Symmetrical Circulation Color [place] Disability Alert. Secondary Survey: 15:30 HEENT: Eyes: Ecchymosis noted right eye and left eye. Gastrointestinal: Abdomen is aa5 distended. : No signs and/or symptoms were reported regarding the genitourinary system. Musculoskeletal: Range of motion: intact in all extremities. Assessment: 14:50 General: Appears in no apparent distress. uncomfortable, Behavior is calm, cooperative, em Denies fever. Pain: Complains of pain in face and abdomen Pain currently is 10 out of 10 on a pain scale. Neuro: Level of Consciousness is awake, alert, obeys commands, Oriented to person, place, time, situation, Denies dizziness. Cardiovascular: Capillary refill < 3 seconds Patient's skin is warm and dry. Respiratory: Airway is patent Respiratory effort is even, unlabored, Respiratory pattern is regular, symmetrical. GI: Abdomen is distended, Bowel sounds present X 4 quads. Reports nausea, vomiting, Patient currently denies diarrhea. Derm: Bruising that is on right eye and left eye light purple . Musculoskeletal: Capillary refill < 3 seconds, Range of motion: intact in all extremities. 14:50 Reassessment: I agree with assessment completed by Leland Moses LVN . aa5 15:46 Reassessment: Patient appears in no apparent distress at this time. Patient and/or em family updated on plan of care and expected duration. Pain level reassessed. Patient is alert, oriented x 3, equal unlabored respirations, skin warm/dry/pink. nausea has improved Patient states feeling better. Patient states symptoms have improved. 17:22 Reassessment: Patient appears in no apparent distress at this time. No changes from em previously documented assessment. Patient is alert, oriented x 3, equal unlabored respirations, skin warm/dry/pink. rates pain 5/10, nausea has resolved, provider notified of BP increasing banana bag rate to 250 ml/hr per provider. 18:33 Reassessment: Patient appears in no apparent distress at this time. Patient and/or em family updated on plan of care and expected duration. Pain level reassessed. Patient is alert, oriented x 3, equal unlabored respirations, skin warm/dry/pink. 19:00 General: Appears uncomfortable, Behavior is calm, cooperative. Pain: Complains of pain ea in left upper quadrant and right upper quadrant Pain currently is 6 out of 10 on a pain scale. Neuro: Level of Consciousness is awake, alert, obeys commands, Oriented to person, place, time, situation. Cardiovascular: Patient's skin is warm and dry. Respiratory: Airway is patent Respiratory effort is even, unlabored, Respiratory pattern is regular, symmetrical. GI: Abdomen is distended, Bowel sounds present X 4 quads. Reports nausea, vomiting. Derm: Bruising that is on left eye and right eye. Musculoskeletal: Circulation, motion, and sensation intact. 20:35 Reassessment: Patient and/or family updated on plan of care and expected duration. Pain ea level reassessed. Patient is alert, oriented x 3, equal unlabored respirations, skin warm/dry/pink. Dr. Velasquez at bedside updating pt on plan of care. 21:14 Reassessment: Patient and/or family updated on plan of care and expected duration. Pain ea level reassessed. Patient is alert, oriented x 3, equal unlabored respirations, skin warm/dry/pink. Report called to Ryann DYSON on second floor. Pt left ED via wheelchair per tech. Pt tolerating well. No s/s of pain or discomfort noted at this time. Vital Signs: 14:11 BP 135 / 74; Pulse 103; Resp 20; Temp 98.0; Pulse Ox 95% on R/A; Weight 77.11 kg (R); aj1 Height 5 ft. 3 in. (160.02 cm) (R); Pain 10/10; 16:19 BP 112 / 62; Pulse 76; Resp 18; Pulse Ox 98% on R/A; Pain 8/10; em 16:40 BP 105 / 62; Pulse 101; Resp 18 S; Pulse Ox 97% on R/A; la1 17:22 BP 97 / 55; Pulse 90; Resp 22; Temp 98.6(O); Pulse Ox 95% on R/A; Pain 5/10; em 19:00 BP 103 / 50; Pulse 96; Resp 18; Pulse Ox 97% on R/A; ea 20:30 BP 135 / 63; Pulse 98; Resp 16; Pulse Ox 97% on R/A; ea 14:11 Body Mass Index 30.11 (77.11 kg, 160.02 cm) aj1 Celine Coma Score: 14:11 Eye Response: spontaneous(4). Verbal Response: oriented(5). Motor Response: obeys aj1 commands(6). Total: 15. 19:00 Eye Response: spontaneous(4). Verbal Response: oriented(5). Motor Response: obeys ea commands(6). Total: 15. 20:30 Eye Response: spontaneous(4). Verbal Response: oriented(5). Motor Response: obeys ea commands(6). Total: 15. Trauma Score (Adult): 14:11 Eye Response: spontaneous(1); Verbal Response: oriented(1); Motor Response: obeys aj1 commands(2); Systolic BP: > 89 mm Hg(4); Respiratory Rate: 10 to 29 per min(4); Celine Score: 15; Trauma Score: 12 ED Course: 14:09 Patient arrived in ED. as 14:11 Patient has correct armband on for positive identification. aj1 14:11 Patient maintains SpO2 saturation greater than 95% on room air. aj1 14:13 Triage completed. aj1 14:17 Arm band placed on Patient placed in an exam room. aj1 14:30 Thermoregulation: warm blanket given to patient. aa5 14:39 Candace Murray FNP-C is PHCP. snw 14:39 J Carlos Dorado MD is Attending Physician. snw 14:40 Leland Moses LVN is Primary Nurse. em 15:00 Initial lab(s) drawn, by me, sent to lab. Inserted saline lock: 22 gauge in left em antecubital area, using aseptic technique. Blood collected. 15:32 Note: ok to do pt w/o waiting on labs,per adin guerra in er. mw3 15:35 Initial lab(s) drawn, by me, sent to lab. Inserted saline lock: 22 gauge in right em forearm, using aseptic technique. Blood collected. 15:53 CT completed. Patient tolerated procedure well. Patient moved back from CT. mw3 15:57 CT Traumagram (Head C Spine CAP W Con) In Process Unspecified. EDMS 18:03 US Abdomen Limited In Process Unspecified. EDMS 18:34 CT completed. Patient tolerated procedure well. Patient moved back from CT. mw3 18:34 CT Facial Bones W/O Con In Process Unspecified. EDMS 19:34 Eric Blackmon MD is Hospitalizing Provider. snw 19:36 Hospitalizing Provider role handed off by Eric Blackmon MD snw 19:36 Roberto Velasquez DO is Hospitalizing Provider. snw 20:11 No provider procedures requiring assistance completed. Patient admitted, IV remains in ea place. Administered Medications: 15:10 Drug: Zofran 4 mg Route: IVP; Site: left antecubital; aa5 15:38 Follow up: Response: No adverse reaction; Nausea is decreased em 15:12 Drug: fentaNYL (PF) 50 mcg Route: IVP; Site: left antecubital; aa5 15:39 Follow up: Response: No adverse reaction; Pain is decreased em 15:35 Drug: NS 0.9% 1000 ml Route: IV; Rate: 1000 ml; Site: right forearm; em 16:45 Follow up: IV Status: Completed infusion; IV Intake: 1000ml la1 16:14 Drug: Zofran 4 mg Route: IVP; Site: right forearm; em 17:24 Follow up: Response: No adverse reaction; Nausea is decreased em 16:44 Drug: Thiamine 100 mg Route: IV; Rate: calculated rate; Site: right forearm; la1 19:00 Follow up: Response: No adverse reaction; IV Status: Completed infusion ea 16:44 Drug: fentaNYL (PF) 50 mcg Route: IVP; Site: right forearm; la1 17:24 Follow up: Response: No adverse reaction; Pain is decreased em 17:10 Drug: Banana Bag - (NS 0.9% 1000 ml, foLIC Acid 1 mg, Thiamine 100 mg, Multivitamin 1 em amp) Route: IV; Rate: 200 ml/hr; Site: right forearm; 20:49 Follow up: Response: No adverse reaction; IV Status: Infusion continued upon admission; ea IV Intake: 500ml 17:44 Drug: ProTONIX 40 mg Route: IVP; Site: right forearm; aa5 19:16 Follow up: Response: No adverse reaction em 20:08 Drug: Zofran 4 mg Route: IVP; Site: right antecubital; ea 20:48 Follow up: Response: No adverse reaction; Marked relief of symptoms ea Intake: 16:45 IV: 1000ml; Total: 1000ml. la1 20:49 IV: 500ml; Total: 1500ml. ea 21:13 IV: 1000ml (IV Fluid); Total: 2500ml. ea Outcome: 19:36 Decision to Hospitalize by Provider. snw 20:12 Instructed on the need for admit. ea 20:12 Pt admittedPatient's length of stay extended due to ea 21:12 Admitted to Med/surg accompanied by tech, room 225, Report called to Ryann DYSON on ea fourth floor 21:12 Condition: stable 21:15 Patient left the ED. ea Signatures: Dispatcher [employer] Elizabeth Luz RN RN aj1 Candace Murray, FINANCIAL ANALYST-C FINANCIAL ANALYST-Csnw Leland Moses, ASSOCIATION EXECUTIVE ASSOCIATION EXECUTIVE Maria E Dougherty Audri, RN RN aa5 Skip Loyola RN RN la1 Ryann Solorzano RN Beena Tejeda ea mw3 Corrections: (The following items were deleted from the chart) 14:14 14:11 Presenting complaint: Patient states: "I fell and hit my head on the window sill aj1 and it busted my left breast, I have implants, and now i have fluid building up in my abdomen and I've been throwing up" Reports that she fell one week ago today. Reports that she has been having black stools for the past 2 days aj1
--- NOTE | 2019-05-15 19:36 | EDPHYS ---
Physician Documentation [facility] Name: Yudy Luke Age: 48 yrs Sex: Female : 1970 Arrival Date: 05/15/2019 Time: 14:09 Bed 20 Private MD: ED Physician J Carlos Dorado HPI: 05/15 15:32 This 48 yrs old Female presents to ER via Wheelchair with complaints of Fall snw Injury, Vomiting/Diarrhea. 15:32 Details of fall: The patient fell from an upright position, while standing. Onset: The snw symptoms/episode began/occurred suddenly, 1 week(s) ago, and became worse and became persistent. Associated injuries: The patient sustained injury to the head, injury to the chest, injury to the abdomen. Severity of symptoms: At their worst the symptoms were moderate, in the emergency department the symptoms are actually worse. Unable to obtain HPI due to. The patient has not experienced similar symptoms in the past. It is unknown whether or not the patient has recently seen a physician. breast implants 25 yrs ago. 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 LMP N/A - Post-menopause aj1 Historical: - Allergies: 14:17 Phenergan; aj1 14:17 Wellbutrin; aj1 - Home Meds: 17:34 Bystolic 20 mg Oral tab 1 tab once daily [Active]; levothyroxine 125 mcg tab 1 tab once em daily [Active]; topiramate 50 mg oral tab 1 tab 2 times per day [Active]; Protonix 40 mg Oral TbEC 1 tab once daily [Active]; Folic Acid Oral [Active]; Pristiq 100 mg oral Tb24 1 tab once daily [Active]; - PMHx: 14:17 ADD/ADHD; allergies; Depression; esophageal varisces; Gastroenteritis; GERD; aj1 Hypertension; Hypothyroidism; - Immunization history: Last tetanus immunization: < 5 years ago. - Social history:: Smoking status: Patient/guardian denies using tobacco. - Ebola Screening: : Patient denies travel to an Ebola-affected area in the 21 days before illness onset. ROS: 15:30 ENT: Negative for injury, pain, and discharge, Neck: Negative for injury, pain, and snw swelling, Cardiovascular: Negative for chest pain, palpitations, and edema, Respiratory: Negative for shortness of breath, cough, wheezing, and pleuritic chest pain. 15:30 Back: Negative for injury and pain, : Negative for injury, bleeding, discharge, and swelling, MS/Extremity: Negative for injury and deformity, Skin: Negative for injury, rash, and discoloration, Neuro: Negative for headache, weakness, numbness, tingling, and seizure. 15:30 Constitutional: Positive for body aches, malaise, poor PO intake, vomiting. 15:30 Eyes: Positive for swelling. 15:30 Abdomen/GI: Positive for abdominal pain, nausea and vomiting, abdominal distension. Exam: 15:27 ENT: Nares patent. No nasal discharge, no septal abnormalities noted. Tympanic snw membranes are normal and external auditory canals are clear. Oropharynx with no redness, swelling, or masses, exudates, or evidence of obstruction, uvula midline. Mucous membranes moist. Neck: Trachea midline, no thyromegaly or masses palpated, and no cervical lymphadenopathy. Supple, full range of motion without nuchal rigidity, or vertebral point tenderness. No Meningismus. 15:27 Respiratory: Lungs have equal breath sounds bilaterally, clear to auscultation and percussion. No rales, rhonchi or wheezes noted. No increased work of breathing, no retractions or nasal flaring. 15:27 Back: No spinal tenderness. No costovertebral tenderness. Full range of motion. Skin: Warm, dry with normal turgor. Normal color with no rashes, no lesions, and no evidence of cellulitis. MS/ Extremity: Pulses equal, no cyanosis. Neurovascular intact. Full, normal range of motion. Neuro: Awake and alert, GCS 15, oriented to person, place, time, and situation. Cranial nerves II-XII grossly intact. Motor strength 5/5 in all extremities. Sensory grossly intact. Cerebellar exam normal. Normal gait. Psych: Awake, alert, with orientation to person, place and time. Behavior, mood, and affect are within normal limits. 15:27 Constitutional: The patient appears awake, anxious, lethargic. 15:27 Head/face: Noted is raccoon eye(s), bilaterally. 15:27 Eyes: Conjunctiva: injected, in the left eye. 15:27 Chest/axilla: Inspection: normal, Palpation: left breast soft, no palpable implant, Axilla: are normal, Breasts: implant palpable to right, no palpable implant to left. 15:27 Cardiovascular: Rate: tachycardic, Rhythm: regular, Heart sounds: normal. 15:27 Abdomen/GI: Inspection: distension, that is moderate, that is severe, Bowel sounds: hyperactive, Palpation: moderate abdominal tenderness, in the right upper quadrant and left upper quadrant. Vital Signs: 14:11 BP 135 / 74; Pulse 103; Resp 20; Temp 98.0; Pulse Ox 95% on R/A; Weight 77.11 kg (R); aj1 Height 5 ft. 3 in. (160.02 cm) (R); Pain 10/10; 16:19 BP 112 / 62; Pulse 76; Resp 18; Pulse Ox 98% on R/A; Pain 8/10; em 16:40 BP 105 / 62; Pulse 101; Resp 18 S; Pulse Ox 97% on R/A; la1 17:22 BP 97 / 55; Pulse 90; Resp 22; Temp 98.6(O); Pulse Ox 95% on R/A; Pain 5/10; em 19:00 BP 103 / 50; Pulse 96; Resp 18; Pulse Ox 97% on R/A; ea 20:30 BP 135 / 63; Pulse 98; Resp 16; Pulse Ox 97% on R/A; ea 14:11 Body Mass Index 30.11 (77.11 kg, 160.02 cm) aj1 Celine Coma Score: 14:11 Eye Response: spontaneous(4). Verbal Response: oriented(5). Motor Response: obeys aj1 commands(6). Total: 15. 19:00 Eye Response: spontaneous(4). Verbal Response: oriented(5). Motor Response: obeys ea commands(6). Total: 15. 20:30 Eye Response: spontaneous(4). Verbal Response: oriented(5). Motor Response: obeys ea commands(6). Total: 15. Trauma Score (Adult): 14:11 Eye Response: spontaneous(1); Verbal Response: oriented(1); Motor Response: obeys aj1 commands(2); Systolic BP: > 89 mm Hg(4); Respiratory Rate: 10 to 29 per min(4); Nottingham Score: 15; Trauma Score: 12 MDM: 14:48 Patient medically screened. sn 16:14 Data reviewed: vital signs, nurses notes. Data interpreted: Pulse oximetry: on room air snw is 95 %. Interpretation: normal. Counseling: I had a detailed discussion with the patient and/or guardian regarding: the historical points, exam findings, and any diagnostic results supporting the discharge/admit diagnosis, lab results, radiology results. ED course: guaiac negative. 17:56 Physician consultation: Eric Blackmon MD was called at 17:56, was contacted at 17:57, snw regarding admission, patient's condition, would like further tests performed, repeat lactate and CT facial bones. 05/15 14:44 Order name: CBC with Diff; Complete Time: 16:52 snw 05/15 14:44 Order name: TS; Complete Time: 18:29 snw 05/15 14:44 Order name: Chem 7; Complete Time: 16:13 snw 05/15 14:56 Order name: LFT's; Complete Time: 16:36 snw 05/15 14:56 Order name: AMMONIA; Complete Time: 16:27 snw 05/15 14:56 Order name: Lactate; Complete Time: 16:36 snw 05/15 14:56 Order name: Urine Culture 05/15 14:56 Order name: Urine Microscopic Only w 05/15 14:56 Order name: Blood Culture* 05/15 15:59 Order name: PT-INR; Complete Time: 16:36 snw 05/15 15:59 Order name: Ptt, Activated; Complete Time: 16:36 snw 05/15 15:59 Order name: ETOH Level; Complete Time: 16:52 snw 05/15 16:46 Order name: CBC Smear Scan; Complete Time: 16:52 EDMS 05/15 14:44 Order name: CT Traumagram (Head C Spine CAP W Con); Complete Time: 16:25 snw 05/15 16:51 Order name: Misc. Order: please document pt's meds; Complete Time: 17:34 snw 05/15 16:57 Order name: US Abdomen Limited; Complete Time: 18:52 snw 05/15 17:51 Order name: CT Facial Bones W/O Con; Complete Time: 19:14 snw 05/15 19:42 Order name: Lactate Sepsis 2 HR Follow-up; Complete Time: 19:49 EDMS Administered Medications: 15:10 Drug: Zofran 4 mg Route: IVP; Site: left antecubital; aa5 15:38 Follow up: Response: No adverse reaction; Nausea is decreased em 15:12 Drug: fentaNYL (PF) 50 mcg Route: IVP; Site: left antecubital; aa5 15:39 Follow up: Response: No adverse reaction; Pain is decreased em 15:35 Drug: NS 0.9% 1000 ml Route: IV; Rate: 1000 ml; Site: right forearm; em 16:45 Follow up: IV Status: Completed infusion; IV Intake: 1000ml la1 16:14 Drug: Zofran 4 mg Route: IVP; Site: right forearm; em 17:24 Follow up: Response: No adverse reaction; Nausea is decreased em 16:44 Drug: Thiamine 100 mg Route: IV; Rate: calculated rate; Site: right forearm; la1 19:00 Follow up: Response: No adverse reaction; IV Status: Completed infusion ea 16:44 Drug: fentaNYL (PF) 50 mcg Route: IVP; Site: right forearm; la1 17:24 Follow up: Response: No adverse reaction; Pain is decreased em 17:10 Drug: Banana Bag - (NS 0.9% 1000 ml, foLIC Acid 1 mg, Thiamine 100 mg, Multivitamin 1 em amp) Route: IV; Rate: 200 ml/hr; Site: right forearm; 20:49 Follow up: Response: No adverse reaction; IV Status: Infusion continued upon admission; ea IV Intake: 500ml 17:44 Drug: ProTONIX 40 mg Route: IVP; Site: right forearm; aa5 19:16 Follow up: Response: No adverse reaction em 20:08 Drug: Zofran 4 mg Route: IVP; Site: right antecubital; ea 20:48 Follow up: Response: No adverse reaction; Marked relief of symptoms ea Disposition: 05/16 11:17 Co-signature as Attending Physician, J Carlos Dorado MD I agree with the assessment and joseph plan of care. Disposition: 05/15/19 19:36 Hospitalization ordered by Roberto Velasquez for Observation. Preliminary diagnosis are Alcoholic cirrhosis of liver with ascites, Fall on same level from slipping, tripping and stumbling, Dehydration, Alcohol abuse with unspecified alcohol-induced disorder. - Bed requested for Telemetry/MedSurg (observation). - Status is Observation. ea - Condition is Stable. - Problem is an acute exacerbation. - Symptoms are unchanged. UTI on Admission? No Signatures: Dispatcher [employer] EDVA Elizabeth Gramajo, RN RN aj1 J Carlos Dorado MD MD cha Therrien, Shelly, TISSUE PACKER-C TISSUE PACKER-Csnw Josué, Leland, CHARGE MANAGER CHARGE MANAGER em Ena Romero, RN RN aa5 Skip Loyola RN RN laSaray Rowe RN RN cg Antunez, Elena, RN RN ea Corrections: (The following items were deleted from the chart) 05/15 14:59 14:58 Albumin+C.LAB.BRZ ordered. EDVA EDMS 19:01 18:48 LACTATE+C.LAB.BRZ ordered. EDVA EDVA 20:33 19:36 Hospitalization Ordered by Roberto Velasquez DO for Observation. Preliminary cg diagnosis is Alcoholic cirrhosis of liver with ascites; Fall on same level from slipping, tripping and stumbling; Dehydration; Alcohol abuse with unspecified alcohol-induced disorder. Bed requested for Telemetry/MedSurg (observation). Status is Observation. Condition is Stable. Problem is an acute exacerbation. Symptoms are unchanged. UTI on Admission? No. snw 21:15 20:33 05/15/2019 19:36 Hospitalization Ordered by Roberto Velasquez DO for Observation. ea Preliminary diagnosis is Alcoholic cirrhosis of liver with ascites; Fall on same level from slipping, tripping and stumbling; Dehydration; Alcohol abuse with unspecified alcohol-induced disorder. Bed requested for Telemetry/MedSurg (observation). Status is Observation. Condition is Stable. Problem is an acute exacerbation. Symptoms are unchanged. UTI on Admission? No. cg
--- NOTE | 2019-05-15 20:43 | P.HP ---
Certification for Inpatient Patient admitted to: Observation With expected LOS: <2 Midnights Patient will require the following post-hospital care: None Practitioner: I am a practitioner with admitting privileges, knowledge of patient current condition, hospital course, and medical plan of care. Services: Services provided to patient in accordance with Admission requirements found in Title 42 Section 412.3 of the Code of Federal Regulations Patient History Date of Service: 05/15/19 Primary Care Provider: Dr. Whitaker; GI-Dr. Nino Reason for admission: Recent fall, ascites History of Present Illness: 48-year-old female presented to the emergency room with multiple complaints, primarily with recent fall and ascites. Patient with history of GERD, alcoholic cirrhosis, alcohol abuse, hypothyroidism , depression, hypertension. Patient reports that she fell face forward on the window seal last week. She noted some edema and ecchymosis to the face. Since that time he she also reported increasing ascites mainly to her abdominal region. She denied any fever, chills, cough or congestion. She reported some mild nausea. She has been reporting some diarrhea as well. She came to the ER for further evaluation. In the ER patient evaluated. White count 4.5, hemoglobin 12.2. Platelet count of 50. Sodium 135, potassium 3.4, BUN of 7, creatinine 0.75 with a GFR of 82. Lactic acid 6.2, total bilirubin 5.6. Direct bilirubin 4.4, AST 269, ALT 78. Alcohol level was elevated at 137. Abdominal ultrasound showed cholelithiasis without cholecystitis. CT scan showed no facial injury or fracture. CT head showed no acute intracranial abnormality. There was mild posterior subluxation of the C4 on C5 region. Left breast implant was ruptured. Cirrhosis noted with small to a moderate amount of ascites. Right lower lobe opacity likely atelectasis noted. Patient was given IV fluids in the emergency room. She was stabilize. Patient was admitted for observation. When I saw the patient ER, she appeared stable. Mild ascites noted. Patient is non compliant with alcohol cessation. Patient is not on a fluid restriction. Patient recently started on Aldactone. Allergies clonazepam Allergy (Severe, Verified 01/13/17 01:55) Anaphylaxis codeine Allergy (Verified 07/04/17 14:26) Nausea/Vomiting Home medications list reviewed: Yes Home Medications: Lactobacillus Acidophilus [Acidophilus Lactobacilli] 1 each PO DAILY #30 Levothyroxine Sodium [Synthroid] 175 mcg PO DAILY #30 tablet 07/11/17 Montelukast [Singulair*] 10 mg PO DAILY #30 tab 07/11/17 Desvenlafaxine Succinate [Pristiq] 50 mg PO DAILY 08/14/18 Cholestyramine/Asp [Questran Light*] 8 gm PO BEDTIME #30 packet 08/19/18 Metoclopramide HCl [Reglan] 10 mg PO 30 MIN BEFORE HS #30 tablet 08/19/18 Pantoprazole [Protonix Tab*] 40 mg PO DAILYAC #30 tab 08/19/18 Ondansetron HCl [Zofran] 8 mg PO Q12HP PRN 08/28/18 - Past Medical/Surgical History Diabetic: No -: Hypothyroidism -: Depression -: Adult attention deficit disorder -: Allergic rhinitis -: GERD -: Esophageal varices -: Gastroparesis -: Anemia of chronic disease -: Tobacco/alcohol use -: Hypertension -: Alcoholic cirrhosis -: Tonsillectomy -: Breast augmentation Psychosocial/ Personal History: Patient is . She has 1 child. 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 - Family History Father -: Heart disease, Other (see notes) Notes: PE Mother -: Heart disease, Cancer Notes: SMALL CELL JOSEPH LUNG CANCER - Social History Smoking Status: Light Tobacco smoker (1-9 cigarettes/day) Counseled patient to stop smoking for: less than 10 minutes Smoking therapy provided: Yes Patient receptive to therapy: Yes Alcohol use: Yes CD- Drugs: No Caffeine use: No Place of Residence: Home Review of Systems General: Weakness, As per HPI Eyes: As per HPI ENT: As per HPI Respiratory: As per HPI Cardiovascular: As per HPI Gastrointestinal: Nausea, Diarrhea, Distention, As per HPI Genitourinary: Unremarkable Musculoskeletal: As per HPI Integumentary: Unremarkable Neurological: Unremarkable Lymphatics: Unremarkable Physical Examination - Physical Exam General: Alert, In no apparent distress, Oriented x3, Cooperative HEENT: Atraumatic, Normocephalic, PERRLA, Mucous membr. moist/pink, Other (Mild ecchymosis to the orbital regions.) Neck: Supple, No Thyromegaly Respiratory: Clear to auscultation bilaterally, Normal air movement Cardiovascular: Normal pulses, Regular rate/rhythm Gastrointestinal: Normal bowel sounds, Soft and benign, Non-distended, No tenderness, No masses, No rebound, No guarding, Ascites (Mild to moderate ascites noted) Musculoskeletal: No contractures, No erythema, No tenderness, No warmth Integumentary: No tenderness/swelling, No erythema, No warmth, No cyanosis Neurological: Normal speech, Normal strength at 5/5 x4 extr, Normal tone, Normal affect - Studies Laboratory Data (last 24 hrs) 05/15/19 16:05: PT 15.0 H, INR 1.28, APTT 31.7 05/15/19 15:05: Sodium 135 L, Potassium 3.4 L, BUN 7, Creatinine 0.75, Glucose 77 05/15/19 15:05: WBC 4.5, Hgb 12.2, Hct 37.0, Plt Count 50 L* 05/15/19 13:35: Total Bilirubin 5.6 H*, AST 269 H, ALT 78, Alkaline Phosphatase 310 H Assessment and Plan - Plan Impression: Recent fall to the face with mild ecchymosis, no fracture Alcoholic cirrhosis with alcohol abuse Mild to moderate ascites secondary to alcoholic cirrhosis with mild dehydration Thrombocytopenia secondary to alcoholic cirrhosis Hypertension Depression with anxiety Hypothyroidism GERD Chronic migraine headaches Diarrhea Mild posterior subluxation of C4 on C5 Plan: Recent fall to the face with mild ecchymosis, no fracture: Patient will be admitted for observation. No fracture identified. Patient given IV fluids in the emergency room. Will limit IV fluids due to her alcoholic cirrhosis. Fall precautions in place. Will have physical therapy assess ambulation. Will provide medication for pain. Anticipate discharge as early as tomorrow with clinical improvement. Alcoholic cirrhosis with alcohol abuse with mild dehydration: Patient seen by GI as an outpatient. Alcohol level was elevated. Patient appears stable. Patient given IV fluids but will limit IV fluids due to her ascites. Will continue to reassess. Will monitor closely. Will place on a 1500 cc per day fluid restriction. Monitor weight daily. Will restart Aldactone 25 mg but increased to twice daily. Address alcohol cessation education. Will recommend close follow up with GI as an outpatient. Mild to moderate ascites secondary to alcoholic cirrhosis: Will place on a 1500 cc per day fluid restriction. Will teach on fluid restriction. Will restart Aldactone 25 mg but increased to twice daily. If ascites continues to worsen patient may require paracentesis. This can be done as an outpatient or inpatient. Will need to follow along closely. Thrombocytopenia secondary to alcoholic cirrhosis: Will monitor closely. Recommend alcohol cessation. Will provide DVT prophylaxis-SCD. Hypertension: Restart home medication Bystolic. Will adjust accordingly. Depression with anxiety: Restart home medication of Pristiq 100 mg daily. Hypothyroidism: Restart home medication of levothyroxine 125 mcg daily GERD: Continue with home medication Protonix 40 mg daily. Will provide medication for nausea as needed. Chronic migraine headaches: Continue home medication of Topamax 50 mg 1 pill twice daily. Diarrhea: Likely chronic. Will provide lactobacillus. Will check stool culture for bacteria, O/P and C diff. Mild posterior subluxation of C4 on C5: Will have physical therapy assess ambulation. Patient reported that she had recent back injection for pain with orthopedics. Recommend follow up with orthopedics as an outpatient. Discharge Plan: Home Plan to discharge in: 24 Hours - Advance Directives Does patient have a Living Will: No Does patient have a Durable POA for Healthcare: No - Code Status/Comfort Care Code Status Assessed: Yes (Patient is full code) Time Spent Managing Pts Care (In Minutes): 55
[2019-05-15] MEDS ORDERED: ACETAMINOPHEN 500 MG TAB PO PRN (21:29)
[2019-05-15] MEDS: SPIRONOLACTONE 25 MG TABLET PO SCH (22:44)
[2019-05-15] MEDS: TOPIRAMATE 25 MG TAB PO SCH (22:44)
[2019-05-15] MEDS: HYDROCODONE/APAP 7.5/325 MG TAB PO PRN (22:44)
[2019-05-15] MEDS: QUETIAPINE 100MG TAB PO SCH (22:45)
[2019-05-15 23:46] LABS: Urine Appearance CLEAR; Urine Blood NEGATIVE (NEG); Urine Color ORANGE; Urine Glucose NEGATIVE (NEG); Urine Protein NEGATIVE (NEG); Urine Specific Gravity >=1.030 (1.005-1.030); Urine pH 5.5 (5.0-7.0)
[2019-05-15] MEDS: ALPRAZOLAM 0.25 MG TABLET PO PRN (23:58)
[2019-05-16 00:13] LABS: Urine Bilirubin 2+ (NEG); Urine Microscopic Reflex NO UMIC
[2019-05-16 00:25] LABS: Urine Bacteria 20-50 /HPF (<20); Urine Culture Reflex Order NOT NEEDED; Urine RBC NONE SEEN /HPF (NONE SEEN)
[2019-05-16 05:04] LABS: Absolute Lymphocytes (CBC) 0.8 K/uL (0.7-4.9); Basophils % 0.4 % (0-1.3); Hematocrit 33.2 % (36.0-45.0); Lymphocytes % 22.6 % (15.3-44.8); MPV 9.7 fL (7.6-11.3); RBC Red Blood Cell Count 3.05 M/uL (3.86-4.86)
[2019-05-16] MEDS: ONDANSETRON 4 MG/2 ML VIAL IV PRN ×3 (05:23→19:42)
[2019-05-16] MEDS: HYDROCODONE/APAP 7.5/325 MG TAB PO PRN ×3 (05:23→19:42)
[2019-05-16 05:28] LABS: Blood Morphology Comment NOTED (NOT SEEN); Macrocytosis 1+; Platelet Estimate DECR; Teardrop Cell 1+; Urine White Blood Cell Casts OK
[2019-05-16 05:30] LABS: Albumin 2.6 g/dL (3.4-5.0); Magnesium 1.5 mg/dL (1.8-2.4); Potassium 3.5 mmol/L (3.5-5.1); Protein, Total 6.2 g/dL (6.4-8.2)
[2019-05-16 05:33] LABS: Bilirubin Total 7.3 mg/dL (0.2-1.0)
[2019-05-16] MEDS ORDERED: MAGNESIUM SULFATE 1 gm IVPB 1 GM/100 ML BAG IV ONE (05:48)
[2019-05-16] MEDS ORDERED: POTASSIUM CL SA 10 MEQ TAB PO ONE (05:49)
[2019-05-16] MEDS ORDERED: LEVOTHYROXINE SOD 0.125 MG TAB PO SCH (06:30)
[2019-05-16] MEDS: PANTOPRAZOLE 40MG TABLET PO SCH (07:28)
[2019-05-16] MEDS: LEVOTHYROXINE SOD 0.1 MG TAB PO SCH (07:28)
[2019-05-16] MEDS: LEVOTHYROXINE SOD 0.075 MG TAB PO SCH (07:28)
[2019-05-16] MEDS: ALPRAZOLAM 0.25 MG TABLET PO PRN ×2 (08:31→21:20)
[2019-05-16] MEDS: TOPIRAMATE 25 MG TAB PO SCH ×2 (08:32→21:16)
[2019-05-16] MEDS: FOLIC ACID 1 MG, MULTIVITAMINS INJ 10 ML, THIAMINE HCL 100 MG in NA CHLORIDE 0.9% 1,000 ML IV SCH (08:32)
[2019-05-16] MEDS: NEBIVOLOL HCL 5 MG TAB PO SCH (08:32)
[2019-05-16] MEDS: SPIRONOLACTONE 25 MG TABLET PO SCH ×2 (08:33→21:16)
[2019-05-16] MEDS: DESVENLAFAXINE SUCCINATE 50 MG ER TAB PO SCH (08:33)
[2019-05-16] MEDS ORDERED: LORazepam 2 MG/ML VIAL IV PRN (09:23)
[2019-05-16] MEDS: LACTULOSE 20 GM/30 ML UCUP PO SCH (10:47)
[2019-05-16] MEDS: FUROSEMIDE 20 MG/ 2ML VIAL IV SCH (10:48)
--- NOTE | 2019-05-16 13:27 | PN ---
Date of Progress Note: 05/16/2019 Subjective: Patient seen and examined. Chart reviewed and case discussed with RN. The patient states that she is having worsening abdominal distention and shortness of breath. Medications: List reviewed. Physical Examination: Vital Signs: Temperature 97.1, heart rate 98, blood pressure 120/65, respirations 20, O2 94% on room air. General: Awake, alert, oriented x3. Obese female. CV: S1, S2. Pulses present. Respiratory: Diminished breath sounds at the bases otherwise moving air well. No wheezing or stridor. Gastrointestinal: Abdomen is distended, mild to moderate ascites. Bowel sounds positive. Extremities: No clubbing or cyanosis. Trace pedal edema. Neurologic: Nonfocal. Skin: The patient has multiple ecchymosis around the eyes where she fell. Laboratory Data: Sodium 136, potassium 3.5, chloride 102, CO2 23, BUN 7, creatinine 0.7, glucose 72, magnesium 1.5, AST 236, ALT 76. WBC 3.7, hemoglobin and hematocrit 11.4 and 33.2, platelets 29. Cultures are pending. Assessment: A 48-year-old female with. 1. Recent fall, mechanical. 2. trauma to the face with mild ecchymosis. CT facial colitis is negative for fracture. The patient does have some tenderness. We will continue with pain control. 3. Alcoholic liver cirrhosis. The patient continues to drink. 4. Alcohol abuse. The patient has elevated alcohol level. Did have some tremors last night and starting to get into alcohol withdrawal. We will continue with Ativan p.r.n. 5. Mild dehydration. We will limit IV fluids. 6. Mild to moderate ascites secondary to alcoholic liver cirrhosis. We will continue with fluid restriction and continue Aldactone. We will add Lasix. The patient may need paracentesis. We will obtain abdominal girth measurements. 7. Thrombocytopenia secondary to alcohol cirrhosis, currently at 29. No need for transfusion. No bleeding at this time. We will continue to monitor. 8. Essential hypertension, stable. 9. Depression with anxiety. Continue Pristiq and Xanax. 10. Hypothyroidism, continue levothyroxine. 11. Gastroesophageal reflux disease. Continue Protonix. No esophagitis. 12. Chronic migraine headaches. The patient takes Topamax. No headache at this time. 13. Diarrhea, likely chronic. Stool culture pending. 14. Mild posterior subluxation of C4 on C5. We will have PT work with the patient. She will need to follow up with Neurosurgery as an outpatient. Plan: 1. Continue with diuresis. 2. May need paracentesis if platelets improve. 3. Likely discharge in the next 24 hours. /SARY Voice ID: [id number] Report ID: [id number] MTDD
[2019-05-16] MEDS: QUETIAPINE 100MG TAB PO SCH (21:16)
[2019-05-17] MEDS: HYDROCODONE/APAP 7.5/325 MG TAB PO PRN ×2 (04:59→17:46)
[2019-05-17] MEDS: ONDANSETRON 4 MG/2 ML VIAL IV PRN ×2 (04:59→17:47)
[2019-05-17 06:10] LABS: Basophils % 0.5 % (0-1.3); Hematocrit 31.4 % (36.0-45.0); MPV 9.4 fL (7.6-11.3); RBC Red Blood Cell Count 2.92 M/uL (3.86-4.86)
[2019-05-17 06:39] LABS: Albumin 2.5 g/dL (3.4-5.0); Magnesium 1.8 mg/dL (1.8-2.4); Protein, Total 6.1 g/dL (6.4-8.2)
[2019-05-17] MEDS: LEVOTHYROXINE SOD 0.1 MG TAB PO SCH (06:40)
[2019-05-17] MEDS: PANTOPRAZOLE 40MG TABLET PO SCH (06:40)
[2019-05-17 06:41] LABS: Bilirubin Total 6.2 mg/dL (0.2-1.0)
[2019-05-17] MEDS: LEVOTHYROXINE SOD 0.075 MG TAB PO SCH (06:41)
[2019-05-17] MEDS: FOLIC ACID 1 MG, MULTIVITAMINS INJ 10 ML, THIAMINE HCL 100 MG in NA CHLORIDE 0.9% 1,000 ML IV SCH (08:33)
[2019-05-17] MEDS: DESVENLAFAXINE SUCCINATE 50 MG ER TAB PO SCH (08:33)
[2019-05-17] MEDS: SPIRONOLACTONE 25 MG TABLET PO SCH ×2 (08:34→20:55)
[2019-05-17] MEDS: LACTULOSE 20 GM/30 ML UCUP PO SCH (08:34)
[2019-05-17] MEDS: TOPIRAMATE 25 MG TAB PO SCH ×2 (08:35→20:56)
[2019-05-17] MEDS: FUROSEMIDE 20 MG/ 2ML VIAL IV SCH (08:36)
[2019-05-17] MEDS: NEBIVOLOL HCL 5 MG TAB PO SCH (08:36)
[2019-05-17] MEDS: ALPRAZOLAM 0.25 MG TABLET PO PRN (08:37)
[2019-05-17] MEDS ORDERED: POTASSIUM CL SA 10 MEQ TAB PO ONE ×2 (09:00→17:14)
[2019-05-17] MEDS ORDERED: MAGNESIUM SULFATE 1 gm IVPB 1 GM/100 ML BAG IV ONE (09:00)
[2019-05-17 09:47] VITALS: BMI 35.8
[2019-05-17] MEDS: CEFTRIAXONE/SWI 1gm 1 GM/10 ML SYR IV SCH (11:11)
--- NOTE | 2019-05-17 18:43 | PN ---
Date of Progress Note: 05/17/2019 Subjective: Patient is seen and examined. Chart reviewed and case discussed with RN. Patient is still complaining of some shortness of breath, however, her O2 saturations have been around 90% to 93% on room air. Patient states that her abdominal girth has decreased with measurements. She is diuresing well. Medications: List reviewed. Physical Examination: Vital Signs: Temperature 97.4, heart rate 80, blood pressure 92/51, respirations 16, O2 93% on room air. General: Awake, alert, oriented x3, obese female, somewhat ill appearing. CV: S1, S2. Respiratory: Diminished breath sounds. Moving air well bilaterally. No wheezing or stridor. Gastrointestinal: Abdomen is distended. Mild ascites. No rebound or guarding. Positive bowel sounds. Extremities: No clubbing, cyanosis, or edema. Neurologic: Nonfocal. Laboratory Data: Sodium 137, potassium 3, chloride 103, CO2 of 26, BUN 7, creatinine 0.83, glucose 96, calcium 7, magnesium 1.8, total bilirubin 6.2, AST 219, ALT 80, alkaline phosphatase 280, albumin 2.5. WBC 2.8, H and H of 10.8 and 31.4, platelets 30. Blood cultures, no growth to date. Urine culture growing mixed cori. C diff assay negative. Assessment: A 48-year-old female with: 1. Mechanical fall, no acute trauma. 2. Alcoholic liver cirrhosis, mild ascites. 3. Alcohol abuse. We will continue to monitor using [facility] protocol for alcohol withdrawal. Continue with Ativan p.r.n. and banana bag. 4. Mild dehydration. Continue with IV fluids. 5. Thrombocytopenia secondary to alcohol cirrhosis. No active bleeding. No need for transfusion at this time. 6. Essential hypertension, stable. 7. Depression and anxiety. 8. Hypothyroidism. Continue levothyroxine. 9. Gastroesophageal reflux disease without esophagitis. Continue PPI. 10. Chronic migraine headaches. 11. Diarrhea. Clostridium difficile is negative. 12. Mild posterior subluxation of C4 and C5. Patient will need to follow up with Neurology and Neurosurgery as outpatient. 13. Leukopenia. 14. Anemia. H and H are stable. We will continue to monitor. 15. Hypokalemia. We will replace. 16. Hyperbilirubinemia. T bilirubin is 6.2 with elevated liver enzymes, likely related to liver abnormalities, alcoholic liver cirrhosis. Plan: Consult GI. Continue diuretics. Likely discharge in the next 24 hours. /MODL Voice ID: [id number] Report ID: [id number] MTDD
[2019-05-17] MEDS: QUETIAPINE 100MG TAB PO SCH (20:54)
[2019-05-17] MEDS: ACETYLCYST 6,000 MG/30 ML VIAL PO SCH (20:54)
[2019-05-17] MEDS: HYDROMORPHONE HCL 2 MG/ML inj IV PRN (20:57)
[2019-05-18] MEDS: ACETYLCYST 6,000 MG/30 ML VIAL PO SCH ×6 (00:36→20:39)
[2019-05-18] MEDS: ONDANSETRON 4 MG/2 ML VIAL IV PRN ×3 (04:11→17:51)
[2019-05-18] MEDS: HYDROMORPHONE HCL 2 MG/ML inj IV PRN ×2 (04:12→09:46)
[2019-05-18] MEDS: LEVOTHYROXINE SOD 0.075 MG TAB PO SCH (06:00)
[2019-05-18] MEDS: LEVOTHYROXINE SOD 0.1 MG TAB PO SCH (06:00)
[2019-05-18] MEDS: PANTOPRAZOLE 40MG TABLET PO SCH (06:00)
[2019-05-18 06:26] LABS: Basophils % 0.8 % (0-1.3); Hematocrit 34.5 % (36.0-45.0); Lymphocytes % 32.6 % (15.3-44.8); MPV 9.9 fL (7.6-11.3); RBC Red Blood Cell Count 3.15 M/uL (3.86-4.86)
[2019-05-18 06:27] LABS: Protime INR 1.56
[2019-05-18 06:53] LABS: Albumin 2.6 g/dL (3.4-5.0); Magnesium 1.9 mg/dL (1.8-2.4); Potassium 3.5 mmol/L (3.5-5.1); Protein, Total 6.6 g/dL (6.4-8.2)
[2019-05-18 07:07] LABS: Bilirubin Total 5.1 mg/dL (0.2-1.0)
[2019-05-18] MEDS: ACETYLCYST 20% 800 MG/4 ML VIAL PO SCH ×4 (08:00→20:00)
[2019-05-18] MEDS: CEFTRIAXONE/SWI 1gm 1 GM/10 ML SYR IV SCH (09:00)
[2019-05-18] MEDS: SPIRONOLACTONE 25 MG TABLET PO SCH ×3 (09:00→20:37)
[2019-05-18] MEDS: NEBIVOLOL HCL 5 MG TAB PO SCH (09:00)
[2019-05-18] MEDS: FUROSEMIDE 20 MG/ 2ML VIAL IV SCH ×2 (09:00→13:58)
[2019-05-18] MEDS ORDERED: POTASSIUM CL SA 10 MEQ TAB PO ONE (09:00)
[2019-05-18] MEDS: LACTULOSE 20 GM/30 ML UCUP PO SCH (09:28)
[2019-05-18] MEDS: TOPIRAMATE 25 MG TAB PO SCH ×2 (09:28→20:38)
[2019-05-18] MEDS: THIAMINE HCL 100 MG TABLET PO SCH (09:28)
[2019-05-18] MEDS: DESVENLAFAXINE SUCCINATE 50 MG ER TAB PO SCH (09:29)
[2019-05-18] MEDS: FOLIC ACID 1 MG TABLET PO SCH (09:30)
--- NOTE | 2019-05-18 14:00 | P.PN ---
Subjective Date of Service: 05/18/19 Primary Care Provider: Dr. Whitaker; GI-Dr. Nino Chief Complaint: Recent fall, ascites Patient seen and examined at bedside. No family at bedside. Chart reviewed and case discussed with nursing staff. Reports is improved pain. No acute events noted overnight Review of Systems 10-point ROS is otherwise unremarkable Physical Examination - Vital Signs Temperature: 97.5 F Blood Pressure: 91/64 Pulse: 88 Respirations: 18 Pulse Ox (%): 91 - Physical Exam General: Alert, In no apparent distress, Oriented x3, Obese HEENT: Atraumatic, PERRLA, EOMI Neck: Supple, JVD not distended Respiratory: Clear to auscultation bilaterally, Normal air movement Cardiovascular: Regular rate/rhythm, Normal S1 S2 Gastrointestinal: Normal bowel sounds, No tenderness Musculoskeletal: No tenderness Integumentary: No rashes Neurological: Normal speech, Normal tone, Normal affect Lymphatics: No axilla or inguinal lymphadenopathy - Studies Microbiology Data (last 24 hrs): 05/15/19 22:39 Stool Culture & Sensitivity - Final 05/15/19 23:12 Clean Catch Urine [place] Count - Final <10,000 CFU/ML. 05/15/19 23:12 Clean Catch Urine - Final MIXED MERON. 05/16/19 15:20 Stool Clostridium difficile Toxin Assay - Final Assessment And Plan - Plan A 48-year-old female with: Mechanical fall, no acute trauma. Alcoholic liver cirrhosis, mild ascites. -continue fluid restriction -continue Aldactone -will discontinue IV Lasix Alcohol abuse. We will continue to monitor using [facility] protocol for alcohol withdrawal. Continue with Ativan p.r.n. and banana bag. Mild dehydration. IV fluids discontinued. Thrombocytopenia secondary to alcohol cirrhosis. No active bleeding. No need for transfusion at this time. Essential hypertension, stable. Depression and anxiety. Hypothyroidism. Continue levothyroxine. Gastroesophageal reflux disease without esophagitis. Continue PPI. Chronic migraine headaches. Diarrhea. Clostridium difficile is negative. Mild posterior subluxation of C4 and C5. Patient will need to follow up with Neurology and Neurosurgery as outpatient. Leukopenia. Anemia. H and H are stable. We will continue to monitor. Hypokalemia. Resolved. Continue to monitor Hyperbilirubinemia. T bilirubin is 6.2 with elevated liver enzymes, likely related to liver abnormalities, alcoholic liver cirrhosis. -currently getting Mucomyst, per GI. Plan: Continue diuretics. Anticipate discharge in the next 24-48 hours, once cleared by GI
[2019-05-18] MEDS: ALPRAZOLAM 0.25 MG TABLET PO PRN (14:10)
[2019-05-18] MEDS: HYDROMORPHONE HCL 1 MG/ML INJ IV PRN (17:50)
[2019-05-18] MEDS: QUETIAPINE 100MG TAB PO SCH (20:37)
[2019-05-19] MEDS: ONDANSETRON 4 MG/2 ML VIAL IV PRN ×4 (00:26→17:11)
[2019-05-19] MEDS: HYDROMORPHONE HCL 1 MG/ML INJ IV PRN ×4 (00:26→20:56)
[2019-05-19] MEDS: ACETYLCYST 6,000 MG/30 ML VIAL PO SCH ×7 (00:26→23:55)
[2019-05-19] MEDS: ACETYLCYST 20% 800 MG/4 ML VIAL PO SCH ×7 (00:26→23:56)
[2019-05-19] MEDS: LEVOTHYROXINE SOD 0.075 MG TAB PO SCH (05:27)
[2019-05-19] MEDS: LEVOTHYROXINE SOD 0.1 MG TAB PO SCH (05:28)
[2019-05-19] MEDS: PANTOPRAZOLE 40MG TABLET PO SCH (05:28)
[2019-05-19 07:31] LABS: Magnesium 1.6 mg/dL (1.8-2.4); Potassium 3.1 mmol/L (3.5-5.1)
[2019-05-19] MEDS: DESVENLAFAXINE SUCCINATE 50 MG ER TAB PO SCH (08:59)
[2019-05-19] MEDS ORDERED: POTASSIUM CL SA 10 MEQ TAB PO ONE ×2 (09:00→17:00)
[2019-05-19] MEDS: LACTULOSE 20 GM/30 ML UCUP PO SCH (09:00)
[2019-05-19] MEDS: TOPIRAMATE 25 MG TAB PO SCH ×2 (09:00→21:04)
[2019-05-19] MEDS: SPIRONOLACTONE 25 MG TABLET PO SCH (09:00)
[2019-05-19] MEDS: CEFTRIAXONE/SWI 1gm 1 GM/10 ML SYR IV SCH (09:00)
[2019-05-19] MEDS: NEBIVOLOL HCL 5 MG TAB PO SCH (09:00)
[2019-05-19] MEDS: FOLIC ACID 1 MG TABLET PO SCH (09:01)
[2019-05-19] MEDS: THIAMINE HCL 100 MG TABLET PO SCH (10:09)
[2019-05-19] MEDS: ALPRAZOLAM 0.25 MG TABLET PO PRN (10:25)
[2019-05-19 14:12] LABS: Absolute Lymphocytes (CBC) 1.2 K/uL (0.7-4.9)
[2019-05-19 14:17] LABS: Basophils % 0.7 % (0-1.3); Hematocrit 33.5 % (36.0-45.0); Lymphocytes % 31.8 % (15.3-44.8); MPV 10.4 fL (7.6-11.3); RBC Red Blood Cell Count 3.08 M/uL (3.86-4.86)
--- NOTE | 2019-05-19 14:17 | P.PN ---
Subjective Date of Service: 05/19/19 Primary Care Provider: Dr. Whitaker; GI-Dr. Nino Chief Complaint: Recent fall, ascites Subjective: Improving Patient seen and examined at bedside. No family at bedside. Chart reviewed and case discussed with nursing staff. Reports improved pain. No acute events noted overnight Review of Systems 10-point ROS is otherwise unremarkable Physical Examination - Vital Signs Temperature: 96.3 F Blood Pressure: 108/60 Pulse: 82 Respirations: 16 Pulse Ox (%): 97 - Physical Exam General: Alert, In no apparent distress, Oriented x3, Obese HEENT: Atraumatic, PERRLA, EOMI Neck: Supple, JVD not distended Respiratory: Clear to auscultation bilaterally, Normal air movement Cardiovascular: Regular rate/rhythm, Normal S1 S2 Gastrointestinal: Normal bowel sounds, No tenderness Musculoskeletal: No tenderness Integumentary: No rashes Neurological: Normal speech, Normal tone, Normal affect Lymphatics: No axilla or inguinal lymphadenopathy - Studies Microbiology Data (last 24 hrs): 05/15/19 22:39 Stool Culture & Sensitivity - Final Assessment And Plan - Plan A 48-year-old female with: Mechanical fall, no acute trauma. Alcoholic liver cirrhosis, mild ascites. -continue fluid restriction -continue Aldactone -continue IV Lasix Alcohol abuse. We will continue to monitor using [facility] protocol for alcohol withdrawal. Continue with Ativan p.r.n. and banana bag. Mild dehydration. IV fluids discontinued. Thrombocytopenia secondary to alcohol cirrhosis. No active bleeding. No need for transfusion at this time. Essential hypertension, stable. Depression and anxiety. Hypothyroidism. Continue levothyroxine. Gastroesophageal reflux disease without esophagitis. Continue PPI. Chronic migraine headaches. Diarrhea. Clostridium difficile is negative. Mild posterior subluxation of C4 and C5. Patient will need to follow up with Neurology and Neurosurgery as outpatient. Leukopenia. Anemia. H and H are stable. We will continue to monitor. Hypokalemia. Resolved. Continue to monitor Hyperbilirubinemia. T bilirubin is 6.2 with elevated liver enzymes, likely related to liver abnormalities, alcoholic liver cirrhosis. -currently getting Mucomyst, per GI. Plan: Continue diuretics. Anticipate discharge in the next 24-48 hours, once cleared by GI
[2019-05-19 14:30] LABS: Albumin 2.4 g/dL (3.4-5.0); Bilirubin Direct 3.3 mg/dL (0-0.2); Bilirubin Total 4.2 mg/dL (0.2-1.0); Protein, Total 6.1 g/dL (6.4-8.2)
--- NOTE | 2019-05-19 17:53 | P.PN ---
Subjective Date of Service: 05/20/19 Primary Care Provider: Dr. Whitaker; GI-Dr. Nino Chief Complaint: Recent fall, ascites Subjective: Improving (Feels a little better. Decrease weight initially from Friday to Friday with cessation of IVFs. She has been mixing Mucomyst with sodas. She is now on a low sodium diet. She continues to take Lactulose though NH3 normal and not confused. She is on IV antibiotics Ceftriaxone.) Review of Systems General: Weakness, Malaise Cardiovascular: Edema (in LEs) Gastrointestinal: Abdominal Pain Physical Examination - Vital Signs Temperature: 96.3 F Blood Pressure: 108/60 Pulse: 82 Respirations: 16 Pulse Ox (%): 97 - Physical Exam General: Alert, In no apparent distress, Oriented x3, Cooperative HEENT: Atraumatic, Normocephalic, PERRLA, EOMI Neck: Supple Respiratory: Normal air movement Cardiovascular: Normal pulses Gastrointestinal: No rebound, No guarding, Ascites, Tenderness (mild) Musculoskeletal: Swelling (LEs) Neurological: Normal speech, Normal strength at 5/5 x4 extr - Studies Microbiology Data (last 24 hrs): 05/15/19 22:39 Stool Culture & Sensitivity - Final Assessment And Plan - Current Problems (Diagnosis) (1) Ascites Current Visit: Yes Status: Acute (2) Jaundice Current Visit: Yes Status: Acute (3) Cirrhosis, alcoholic Current Visit: Yes Status: Acute (4) Abnormal liver enzymes Current Visit: Yes Status: Acute (5) Coagulopathy Current Visit: Yes Status: Acute (6) Thrombocytopenia Current Visit: Yes Status: Acute - Plan REC: 1) continue IV antibiotics 2) avoid IVFs 3) can stop Lactulose 4) restart IV Lasix 5) increase Aldactone to 100 mg po bid 6) monitor labs 7) consider paracentesis once platelets increase adequately
[2019-05-19] MEDS: SPIRONOLACTONE 100 MG TAB PO SCH (20:59)
[2019-05-19] MEDS: QUETIAPINE 100MG TAB PO SCH (21:04)
[2019-05-20] MEDS: ACETYLCYST 20% 800 MG/4 ML VIAL PO SCH ×3 (04:00→12:00)
[2019-05-20] MEDS: HYDROMORPHONE HCL 1 MG/ML INJ IV PRN ×4 (04:42→20:01)
[2019-05-20] MEDS: ACETYLCYST 6,000 MG/30 ML VIAL PO SCH ×3 (04:49→12:00)
[2019-05-20 06:24] LABS: Absolute Lymphocytes (CBC) 1.1 K/uL (0.7-4.9); Basophils % 0.6 % (0-1.3); Lymphocytes % 37.9 % (15.3-44.8); MPV 11.3 fL (7.6-11.3); RBC Red Blood Cell Count 3.03 M/uL (3.86-4.86)
[2019-05-20 06:25] LABS: Protime INR 1.71
[2019-05-20 06:43] LABS: ALT/SGPT 69 U/L (12-78); AST/SGOT 122 U/L (15-37); Albumin 2.4 g/dL (3.4-5.0); Alkaline Phosphatase 232 U/L (45-117); BUN Blood Urea Nitrogen 4 mg/dL (7-18); Bicarbonate 22 mmol/L (21-32); Bilirubin Direct 3.3 mg/dL (0-0.2); Bilirubin Total 3.9 mg/dL (0.2-1.0); Glucose Level 81 mg/dL (74-106); Potassium 3.6 mmol/L (3.5-5.1); Protein, Total 6.2 g/dL (6.4-8.2); Sodium Level 142 mmol/L (136-145)
[2019-05-20] MEDS: PANTOPRAZOLE 40MG TABLET PO SCH (06:43)
[2019-05-20] MEDS: LEVOTHYROXINE SOD 0.075 MG TAB PO SCH (06:44)
[2019-05-20] MEDS: LEVOTHYROXINE SOD 0.1 MG TAB PO SCH (06:44)
[2019-05-20 08:00] LABS: Magnesium 1.7 mg/dL (1.8-2.4)
[2019-05-20] MEDS: TOPIRAMATE 25 MG TAB PO SCH ×2 (08:37→21:39)
[2019-05-20] MEDS: DESVENLAFAXINE SUCCINATE 50 MG ER TAB PO SCH (08:37)
[2019-05-20] MEDS: ALPRAZOLAM 0.25 MG TABLET PO PRN ×3 (08:38→23:01)
[2019-05-20] MEDS: CEFTRIAXONE/SWI 1gm 1 GM/10 ML SYR IV SCH (08:39)
[2019-05-20] MEDS: ONDANSETRON 4 MG/2 ML VIAL IV PRN ×2 (08:39→16:39)
[2019-05-20] MEDS: THIAMINE HCL 100 MG TABLET PO SCH (08:40)
[2019-05-20] MEDS: FOLIC ACID 1 MG TABLET PO SCH (08:40)
[2019-05-20] MEDS: NEBIVOLOL HCL 5 MG TAB PO SCH (08:41)
[2019-05-20] MEDS: SPIRONOLACTONE 100 MG TAB PO SCH ×2 (09:00→21:40)
[2019-05-20] MEDS ORDERED: FUROSEMIDE 20 MG/ 2ML VIAL IV SCH (09:00)
[2019-05-20 09:22] LABS: Anisocytosis 1+; Blood Morphology Comment NOTED (NOT SEEN); Macrocytosis 2+; Platelet Estimate DECR; Urine White Blood Cell Casts OK
--- NOTE | 2019-05-20 13:19 | P.PN ---
Subjective Date of Service: 05/20/19 Primary Care Provider: Dr. Whitaker; GI-Dr. Nino Chief Complaint: Recent fall, ascites Patient seen and examined at bedside. No family at bedside. Chart reviewed and case discussed with nursing staff. Reports improved pain. No acute events noted overnight Review of Systems 10-point ROS is otherwise unremarkable Physical Examination - Vital Signs Temperature: 97.5 F Blood Pressure: 110/70 Pulse: 100 Respirations: 20 Pulse Ox (%): 100 - Physical Exam General: Alert, In no apparent distress, Obese HEENT: Atraumatic, PERRLA, EOMI Neck: Supple, JVD not distended Respiratory: Clear to auscultation bilaterally, Normal air movement Cardiovascular: Regular rate/rhythm, Normal S1 S2 Gastrointestinal: Normal bowel sounds, No tenderness Musculoskeletal: No tenderness Integumentary: No rashes Neurological: Normal speech, Normal tone, Normal affect Lymphatics: No axilla or inguinal lymphadenopathy Assessment And Plan - Plan A 48-year-old female with: Mechanical fall, no acute trauma. Alcoholic liver cirrhosis, mild ascites. -continue fluid restriction -continue Aldactone -continue IV Lasix Alcohol abuse. We will continue to monitor using [facility] protocol for alcohol withdrawal. Continue with Ativan p.r.n. and banana bag. Mild dehydration. IV fluids discontinued. Thrombocytopenia secondary to alcohol cirrhosis. No active bleeding. No need for transfusion at this time. Essential hypertension, stable. Depression and anxiety. Hypothyroidism. Continue levothyroxine. Gastroesophageal reflux disease without esophagitis. Continue PPI. Chronic migraine headaches. Diarrhea. Clostridium difficile is negative. Mild posterior subluxation of C4 and C5. Patient will need to follow up with Neurology and Neurosurgery as outpatient. Leukopenia. Anemia. H and H are stable. We will continue to monitor. Hypokalemia. Resolved. Continue to monitor Hyperbilirubinemia. T bilirubin is 6.2 with elevated liver enzymes, likely related to liver abnormalities, alcoholic liver cirrhosis. -currently getting Mucomyst, per GI. Plan: Continue diuretics. Anticipate discharge in the next 24 hours, once cleared by GI
[2019-05-20] MEDS ORDERED: METHYLPREDNISOLONE 40 MG INJ IV ONE (13:37)
--- NOTE | 2019-05-20 13:55 | RAD REPORT ---
EXAM DESCRIPTION: US - Abdomen Exam Complete - 05/20/2019 12:38 pm CLINICAL HISTORY: Abdominal pain, ascites COMPARISON: Limited ultrasound May 15 FINDINGS: Patient was not fasting for the examination. Gallbladder is partially contracted. Multiple gallstones are identified matching the prior examination. No wall thickening. Patient has a minimal amount of ascites near the gallbladder and along the liver capsule. This is probably not gallbladder related pericholecystic fluid. Common bile duct is 4-5 mm, normal range, with no common duct stone id entified. Liver is 18 cm in maximum dimension. There is subtle nodular capsule aright a to the liver. Coarsened echogenicity is present. This is potentially fatty infiltration. Cirrhosis or other diffus e hepatic parenchymal disease process is possible as well. Spleen is 15-16 cm. Punctate granulomatous calcifications are present. No focal splenic lesion. The pancreas is obscured by bowel gas. No hydronephrosis or suspicious mass in either kidney. Aorta and IVC show no suspicious findings. No bulky lymphadenopathy. IMPRESSION: Multi stone cholelithiasis in a partially contracted gallbladder. Patient was not fastin g for the examination. Gallbladder findings match the May 15 study. No biliary tree dilatation. Small amount of ascites. This is not a drainable quantity. Abnormal echotexture to the liver suspicious for cirrhosis or diffuse hepatic parenchymal disease. A slightly atypical presentation of fatty infiltration is possible as well. There are no focal liver le sions identifiable. Mild splenomegaly with no focal splenic abnormality.
[2019-05-20] MEDS: FUROSEMIDE 20 MG TABLET PO SCH (16:39)
--- NOTE | 2019-05-20 19:13 | P.PN ---
Subjective Date of Service: 05/20/19 Primary Care Provider: Dr. Whitaker; GI-Dr. Nino Chief Complaint: Recent fall, ascites Subjective: Improving (Somewhat anxious today. Decreased edema in LEs with decreasing wt since admission with increase in diuretics. Mild abdominal pain. Plts increasing. PT/INR increasing. U/S abdomen revealed minimal ascites, not drainable.) Review of Systems 10-point ROS is otherwise unremarkable General: Weakness, Malaise Gastrointestinal: Abdominal Pain (Improved.) Physical Examination - Vital Signs Temperature: 97.2 F Blood Pressure: 106/62 Pulse: 99 Respirations: 20 Pulse Ox (%): 94 - Physical Exam General: Alert, In no apparent distress, Oriented x3, Cooperative, Disheveled HEENT: Atraumatic, Normocephalic, PERRLA, EOMI Neck: Supple Respiratory: Diminished (in bases) Cardiovascular: Normal pulses Gastrointestinal: No rebound, No guarding, Ascites, Tenderness (mild) Neurological: Normal speech, Normal strength at 5/5 x4 extr - Studies Microbiology Data (last 24 hrs): 05/15/19 15:54 Blood - Blood Aerobic Blood Culture - Final No growth in 5 days. 05/15/19 15:54 Blood - Blood Anaerobic Blood Culture - Final 05/15/19 13:35 Blood - Blood Aerobic Blood Culture - Final No growth in 5 days. 05/15/19 13:35 Blood - Blood Anaerobic Blood Culture - Final Assessment And Plan - Current Problems (Diagnosis) (1) Ascites Current Visit: Yes Status: Acute (2) Jaundice Current Visit: Yes Status: Acute (3) Cirrhosis, alcoholic Current Visit: Yes Status: Acute (4) Abnormal liver enzymes Current Visit: Yes Status: Acute (5) Coagulopathy Current Visit: Yes Status: Acute (6) Thrombocytopenia Current Visit: Yes Status: Acute - Plan REC: 1) continue IV antibiotics, get ready for switch to po antibiotics 2) avoid IVFs 3) can stop Lactulose 4) change to po Lasix 20 mg po bid 5) continue Aldactone to 100 mg po bid 6) monitor labs 7) discharge probably tomorrow with GI clinic f/u next week
[2019-05-20] MEDS: QUETIAPINE 100MG TAB PO SCH (21:39)
[2019-05-21] MEDS: HYDROMORPHONE HCL 1 MG/ML INJ IV PRN (05:35)
[2019-05-21] MEDS: LEVOTHYROXINE SOD 0.1 MG TAB PO SCH (05:36)
[2019-05-21] MEDS: PANTOPRAZOLE 40MG TABLET PO SCH (05:36)
[2019-05-21] MEDS: LEVOTHYROXINE SOD 0.075 MG TAB PO SCH (05:36)
[2019-05-21 06:27] LABS: Protime INR 1.47
[2019-05-21 06:35] LABS: Absolute Lymphocytes (CBC) 0.4 K/uL (0.7-4.9); Basophils % 0.2 % (0-1.3); Hematocrit 33.3 % (36.0-45.0); Lymphocytes % 14.1 % (15.3-44.8); MPV 10.9 fL (7.6-11.3); RBC Red Blood Cell Count 3.05 M/uL (3.86-4.86)
[2019-05-21] MEDS: ONDANSETRON 4 MG/2 ML VIAL IV PRN (06:58)
[2019-05-21 07:01] LABS: Magnesium 1.7 mg/dL (1.8-2.4); Phosphorus 2.2 mg/dL (2.5-4.9); Potassium 3.2 mmol/L (3.5-5.1)
[2019-05-21] MEDS: FUROSEMIDE 20 MG TABLET PO SCH (08:23)
[2019-05-21] MEDS: NEBIVOLOL HCL 5 MG TAB PO SCH (08:24)
[2019-05-21] MEDS: TOPIRAMATE 25 MG TAB PO SCH (08:24)
[2019-05-21] MEDS: THIAMINE HCL 100 MG TABLET PO SCH (08:25)
[2019-05-21] MEDS: FOLIC ACID 1 MG TABLET PO SCH (08:25)
[2019-05-21] MEDS: DESVENLAFAXINE SUCCINATE 50 MG ER TAB PO SCH (08:25)
[2019-05-21] MEDS: SPIRONOLACTONE 100 MG TAB PO SCH (08:29)
[2019-05-21] MEDS ORDERED: levoFLOXacin 500 MG TAB PO SCH (09:00)
[2019-05-21 11:27] VITALS: O2SAT 93
[2019-05-21 14:26] VITALS: BP 113/58; TEMP 97
--- NOTE | 2019-05-21 18:43 | P.DS ---
Admission Date: 05/16/19 Discharge Date: 05/21/19 Primary Care Provider: Dr. Whitaker; GI-Dr. Nino Disposition: ROUTINE DISCHARGE Discharge Condition: GOOD Reason for Admission: Recent fall, ascites Consultations: GI, Dr. Nino Brief History of Present Illness: 48-year-old female presented to the emergency room with multiple complaints, primarily with recent fall and ascites. Patient with history of GERD, alcoholic cirrhosis, alcohol abuse, hypothyroidism , depression, hypertension. Patient reports that she fell face forward on the window seal last week. She noted some edema and ecchymosis to the face. Since that time he she also reported increasing ascites mainly to her abdominal region. She denied any fever, chills, cough or congestion. She reported some mild nausea. She has been reporting some diarrhea as well. She came to the ER for further evaluation. In the ER patient evaluated. White count 4.5, hemoglobin 12.2. Platelet count of 50. Sodium 135, potassium 3.4, BUN of 7, creatinine 0.75 with a GFR of 82. Lactic acid 6.2, total bilirubin 5.6. Direct bilirubin 4.4, AST 269, ALT 78. Alcohol level was elevated at 137. Abdominal ultrasound showed cholelithiasis without cholecystitis. CT scan showed no facial injury or fracture. CT head showed no acute intracranial abnormality. There was mild posterior subluxation of the C4 on C5 region. Left breast implant was ruptured. Cirrhosis noted with small to a moderate amount of ascites. Right lower lobe opacity likely atelectasis noted. Patient was given IV fluids in the emergency room. She was stabilize. Patient was admitted for observation. When I saw the patient ER, she appeared stable. Mild ascites noted. Patient is non compliant with alcohol cessation. Patient is not on a fluid restriction. Patient recently started on Aldactone. Hospital Course: Patient was admitted for recent fall, alcoholic cirrhosis, mild-mod ascites and thrombocyotopenia along with complaints of abdominal pain and bloating. Her fluid intake was restricted due to her alcoholic cirrhosis. Abdominal ultrasound was done x2, without drainable amount of ascites. GI was consulted. She was provided with symptom control along with diuresis with IV lasix and PO aldactone. Her aldactone was increased to 100 mg BID and she was given IV lasix. She also received ativan prn for alcohol withdrawal along with banana bag and multivitamins. Her weight and abdominal girth was measured. Her weight did improve from 206 to 191 lb prior to discharge. Her thrombocytopenia also improved prior to discharge. She is non-compliant with alcohol and continues to drink, She was counseled but unsure if she will stop drinking alcohol. She did not need any platelet transfusion throughout the stay though and no active bleeding was noted. She was noted to ahve hyperbilirubinemia throughout the stay. This might have been related to norco/acetaminophen on top of her underlying liver cirrhosis. She was given mucomyst, per GI. She symptomatically improved and was discharged home after being cleared for discharge by GI. Overall, patient has a poor prognosis if she continues to drink alcohol due to further damage of her liver. Her treatment plan was explained to her, all questions were answered and she verbalized understanding. She was then discharged home in a safe and stable manner. She ill follow up with Dr. Nino as an outpatient within 1 week. Vital Signs/Physical Exam: Temp Pulse Resp BP Pulse Ox 97.0 F 87 16 113/58 L 95 05/21/19 12:00 05/21/19 12:00 05/21/19 12:00 05/21/19 12:00 05/21/19 12:00 General: Alert, In no apparent distress, Oriented x3, Obese HEENT: Atraumatic, PERRLA, EOMI Neck: Supple, JVD not distended Respiratory: Clear to auscultation bilaterally, Normal air movement Cardiovascular: Regular rate/rhythm, Normal S1 S2 Gastrointestinal: Normal bowel sounds, No tenderness Musculoskeletal: No tenderness Integumentary: No rashes Neurological: Normal speech, Normal tone, Normal affect Lymphatics: No axilla or inguinal lymphadenopathy Laboratory Data at Discharge: WBC 2.8 K/uL (4.3-10.9) L 05/21/19 06:05 Hgb 11.4 g/dL (12.0-15.0) L 05/21/19 06:05 Hct 33.3 % (36.0-45.0) L 05/21/19 06:05 Plt Count 43 K/uL (152-406) L* 05/21/19 06:05 PT 17.1 SECONDS (9.5-12.5) H 05/21/19 06:05 INR 1.47 05/21/19 06:05 APTT 31.7 SECONDS (24.3-36.9) 05/15/19 16:05 Sodium 140 mmol/L (136-145) 05/21/19 06:05 Potassium 3.2 mmol/L (3.5-5.1) L 05/21/19 06:05 BUN 7 mg/dL (7-18) 05/21/19 06:05 Creatinine 0.73 mg/dL (0.55-1.3) 05/21/19 06:05 Glucose 120 mg/dL (74-106) H 05/21/19 06:05 Phosphorus 2.2 mg/dL (2.5-4.9) L 05/21/19 06:05 Magnesium 1.7 mg/dL (1.8-2.4) L 05/21/19 06:05 Total Bilirubin 3.9 mg/dL (0.2-1.0) H 05/20/19 06:04 AST 122 U/L (15-37) H 05/20/19 06:04 ALT 69 U/L (12-78) 05/20/19 06:04 Alkaline Phosphatase 232 U/L (45-117) H 05/20/19 06:04 Home Medications: Desvenlafaxine Succinate [Pristiq] 100 mg PO DAILY 05/15/19 Folic Acid 1 mg PO DAILY 05/15/19 Hydrocodone/Acetaminophen [Hydrocodone-Acetamin 7.5-325] 1 tab PO Q4HP PRN 05/15 Levothyroxine Sodium 175 mcg PO DAILY 05/15/19 Nebivolol HCl [Bystolic*] 20 mg PO DAILY 05/15/19 Pantoprazole Sodium 40 mg PO DAILY 05/15/19 Quetiapine Fumarate [Seroquel] 100 mg PO BEDTIME 05/15/19 Topiramate 50 mg PO BID 05/15/19 Metoclopramide [Reglan*] 10 mg PO DAILY 05/18/19 Furosemide [Lasix*] 20 mg PO BIDL #14 tab 05/21/19 Ondansetron HCl [Zofran] 4 mg PO Q6HP PRN #15 tablet 05/21/19 Pantoprazole [Protonix Tab*] 40 mg PO DAILYAC #30 tab 05/21/19 Spironolactone [Aldactone*] 100 mg PO BID #15 tab 05/21/19 Thiamine HCl [Vitamin B-1*] 100 mg PO DAILY #30 tablet 05/21/19 Tramadol HCl [Ultram] 50 mg PO Q6HP PRN #12 tablet 05/21/19 chlordiazePOXIDE HCl [Librium] 25 mg PO Q6H #30 cap 05/21/19 levoFLOXacin [Levaquin*] 500 mg PO DAILY #7 tab 05/21/19 New Medications: Ondansetron HCl [Zofran] 4 mg PO Q6HP PRN #15 tablet PRN Reason: Nausea / Vomiting Tramadol HCl [Ultram] 50 mg PO Q6HP PRN #12 tablet PRN Reason: Pain Scale 5-7 (Moderate) chlordiazePOXIDE HCl [Librium] 25 mg PO Q6H #30 cap Furosemide [Lasix*] 20 mg PO BIDL #14 tab levoFLOXacin [Levaquin*] 500 mg PO DAILY #7 tab Pantoprazole [Protonix Tab*] 40 mg PO DAILYAC #30 tab Spironolactone [Aldactone*] 100 mg PO BID #15 tab Thiamine HCl [Vitamin B-1*] 100 mg PO DAILY #30 tablet Patient Discharge Instructions: Please follow up with GI, Dr. Nino within 1 week. Return to the Emergency room for worsening symptoms. Diet: As tolerated Activity: Ad zion Followup: Isidoro Nino MD [ASSOCIATE-ACTIVE - CAN ADMIT] - 1 Week (Call for appointment) Time spent managing pt's care (in minutes): 55
== END 2019-05-21 17:30 | disposition home or self-care (01) | DRG 433 ==
LOC: ER 14:07 → ERHOLD 20:49 → 2ND 21:16 → OBSVTOIN 05-16 17:02
PROVIDERS: ADMIT Family Medicine; ATTEND Family Medicine
DX: K70.31 Alcoholic cirrhosis of liver with ascites (principal); S13.150A Subluxation of C4/C5 cervical vertebrae, initial encounter; F10.10 Alcohol abuse, uncomplicated; E86.0 Dehydration; I10 Essential (primary) hypertension; F17.210 Nicotine dependence, cigarettes, uncomplicated; S05.10XA Contusion of eyeball and orbital tissues, unspecified eye, initial encounter; W01.198A Fall on same level from slipping, tripping and stumbling with subsequent striking against other object, initial encounter; Y92.009 Unspecified place in unspecified non-institutional (private) residence as the place of occurrence of the external cause; G43.909 Migraine, unspecified, not intractable, without status migrainosus; R19.7 Diarrhea, unspecified; D69.59 Other secondary thrombocytopenia; E87.6 Hypokalemia; D64.9 Anemia, unspecified; E03.9 Hypothyroidism, unspecified; K21.9 Gastro-esophageal reflux disease without esophagitis; F41.8 Other specified anxiety disorders; Z88.5 Allergy status to narcotic agent
CPT/HCPCS: 36415; 70450; 70486; 71260; 72125; 74177; 76377; 76700; 76705; 80048; 80053; 80076; 80320; 81003; 81015; 82140; 83605; 83735; 84100; 84132; 85025; 85610; 85730; 86850; 86900; 86901; 87040; 87045; 87046; 87086; 87088; 87177; 87209; 87493; 96361; 96365; 96366; 96375; 97116; 97161; 99285; C9113; G0378; J0696; J1170; J1940; J2405; J2920; J3010; J3411; J3475; J7030; Q9967